=== PATIENT | female | born 1940 | race Caucasian/White ===

== ENCOUNTER → 2017-01-04 | Outpatient (CLI) | payer MEDICARE ==
--- NOTE | 2017-01-04 13:16 | MM ---
Reason for exam: additional evaluation requested from abnormal screening. Last mammogram was performed less than 1 month ago. History: Patient is postmenopausal. Family history of breast cancer in maternal aunt at age 82. Took hormonal contraceptives for 10 years beginning at age 27. Took estrogen for 26 years beginning at age 39. Physical Findings: Nurse did not find any significant physical abnormalities on exam. MG 3D Work Up W/Cad RT CC with magnification, LM with magnification, and LM view(s) were taken of the right breast. Prior study comparison: December 26, 2016, bilateral MG 3d screening mammo w/cad. June 04, 2015, bilateral MG 3d screening mammo w/cad. Finding: There is a 6 mm round mass in the lower quadrant of the right breast. No suspicious cluster calcifications. These results were verbally communicated with the patient and result sheet given to the patient on 01/04/17. ASSESSMENT: Incomplete: need additional imaging evaluation, BI-RAD 0 RECOMMENDATION: Ultrasound of the right breast.
--- NOTE | 2017-01-04 13:21 | USB ---
Reason for exam: additional evaluation requested from abnormal screening. History: Patient is postmenopausal. Family history of breast cancer in maternal aunt at age 82. Took hormonal contraceptives for 10 years beginning at age 27. Took estrogen for 26 years beginning at age 39. US Breast Workup Limited RT Right breast ultrasound demonstrates a duct seen at 5 o'clock, a 1.0 x 0.7 x 0.6cm oval lesion at 5 o'clock and a 0.5 x 0.3 x 0.7cm cystic cluster at 7 o'clock. These results were verbally communicated with the patient and result sheet given to the patient on 01/04/17. ASSESSMENT: Suspicious, BI-RAD 4 RECOMMENDATION: Ultrasound core biopsy of the right breast. Called Dr. Segura with mammographic findings and has scheduled an appointment for the patient for 01/12/17 at 9:[address] Blanc. PRELIMINARY REPORT CALLED AND FAXED TO DR. BLANC ON 01/04/17.
== END | disposition home or self-care (01) ==
LOC: RADMAMWWP 10:37
PROVIDERS: ATTEND Family Medicine
DX: R92.8 Other abnormal and inconclusive findings on diagnostic imaging of breast (principal)
CPT/HCPCS: 76642; G0206; G0279

== ENCOUNTER → 2017-04-10 | Outpatient (CLI) | payer MEDICARE ==
--- NOTE | 2017-04-10 11:05 | XR ---
EXAMINATION TYPE: XR chest 2V DATE OF EXAM: 04/10/2017 COMPARISON: Prior chest x-ray 02/21/2013 HISTORY: J 41.1 TECHNIQUE: Frontal and lateral views of the chest are obtained. FINDINGS: Scoliosis is again noted. Heart appears enlarged, size may be accentuated by technique, pa tient body habitus. There is old granulomatous disease, calcified granuloma, calcified right hilar no de as on prior. Pulmonary vascularity unchanged. No evident airspace disease, pneumothorax, or pleura l effusion. IMPRESSION: No acute cardiopulmonary process. Additional findings above.
== END | disposition home or self-care (01) ==
LOC: RADXRMAIN 08:52
PROVIDERS: ATTEND Physician Assistant
DX: J41.1 Mucopurulent chronic bronchitis (principal)
CPT/HCPCS: 71046

== ENCOUNTER → 2018-01-02 | Outpatient (CLI) | payer MEDICARE ==
--- NOTE | 2018-01-02 14:14 | MM ---
Reason for exam: additional evaluation requested from prior study. Last mammogram was performed 11 months ago. History: Patient is postmenopausal. Family history of breast cancer in maternal aunt at age 82. Benign US biopsy breast VAD RT of the right breast, January 29, 2017. Took hormonal contraceptives for 10 years beginning at age 27. Took estrogen for 26 years beginning at age 39. Physical Findings: Nurse did not find any significant physical abnormalities on exam. MG 3D Diag Mammo W/Cad NIA Bilateral CC and MLO view(s) were taken. Prior study comparison: January 29, 2017, right breast MG 3d diag mammo wo cad RT. January 04, 2017, right breast MG 3d work up w/cad RT. The breast tissue is heterogeneously dense. This may lower the sensitivity of mammography. Previous mammotome biopsy in the right breast. There is no discrete abnormality including area of concern. No significant new findings when compared with previous films. These results were verbally communicated with the patient and result sheet given to the patient on 01/02/18. ASSESSMENT: Incomplete: need additional imaging evaluation, BI-RAD 0 RECOMMENDATION: Ultrasound of the right breast.
--- NOTE | 2018-01-02 14:15 | USB ---
Reason for exam: additional evaluation requested from abnormal screening. History: Patient is postmenopausal. Family history of breast cancer in maternal aunt at age 82. Benign US biopsy breast VAD RT of the right breast, January 29, 2017. Took hormonal contraceptives for 10 years beginning at age 27. Took estrogen for 26 years beginning at age 39. US Breast RT Right complete breast ultrasound includes all four quadrants, the retroareolar region and axilla. Finding demonstrates a 0.2 x 0.2 x 0.3cm cystic lesion with clip at 7 o'clock. These results were verbally communicated with the patient and result sheet given to the patient on 01/02/18. ASSESSMENT: Benign, BI-RAD 2 RECOMMENDATION: Routine screening mammogram of both breasts in 1 year.
== END | disposition home or self-care (01) ==
LOC: RADMAMWWP 07:26
PROVIDERS: ATTEND Family Medicine
DX: R92.8 Other abnormal and inconclusive findings on diagnostic imaging of breast (principal)
CPT/HCPCS: 77066; 76641; G0279; 77062

== ENCOUNTER → 2019-02-20 | Outpatient (CLI) | payer MEDICARE ==
--- NOTE | 2019-02-21 14:36 | MM ---
Reason for exam: screening (asymptomatic). Last mammogram was performed 1 year and 2 months ago. History: Patient is postmenopausal. Family history of breast cancer in maternal aunt at age 82. Benign US biopsy breast VAD RT of the right breast, January 29, 2017. Took hormonal contraceptives for 10 years beginning at age 27. Took estrogen for 26 years beginning at age 39. Physical Findings: A clinical breast exam by your physician is recommended on an annual basis and results should be correlated with mammographic findings. MG 3D Screening Mammo W/Cad Bilateral CC and MLO view(s) were taken. Prior study comparison: January 02, 2018, bilateral MG 3d diag mammo w/cad NIA. January 29, 2017, right breast MG 3d diag mammo wo cad RT. There are scattered fibroglandular densities. There is no discrete abnormality. No significant changes when compared with prior studies. ASSESSMENT: Negative, BI-RAD 1 RECOMMENDATION: Routine screening mammogram of both breasts in 1 year.
== END | disposition home or self-care (01) ==
LOC: RADMAMWWP 11:35
PROVIDERS: ATTEND Family Medicine
DX: Z12.31 Encounter for screening mammogram for malignant neoplasm of breast (principal)
CPT/HCPCS: 77063; 77067

== ENCOUNTER 2020-12-09 09:08 | Day surgery (SDC) | payer MEDICARE ==
[2020-12-08 08:28] VITALS: BMI 34.4
[~2020-12-09 09:08] MED LIST: ALPRAZolam 0.25 MG TAB PO PRN; ALPRAZolam 0.5 MG TAB PO PRN; ASPIRIN 325 MG TAB PO STA; ATORVASTATIN 80 MG TAB PO STA; HEPARIN SODIUM,PORCINE 10,000 UNIT in SODIUM CHLORIDE 0.9% 1,000 ML IRRIGATION PRN; HEPARIN SODIUM,PORCINE 2,500 UNIT in SODIUM CHLORIDE 0.9% 250 ML IRRIGATION PRN; NITROGLYCERIN SL TABS 0.4 MG TAB SUBLINGUAL PRN
[2020-12-09] MEDS: SODIUM CHLORIDE 0.9% 1,000 ML in EMPTY BAG 1 BAG IV SCH ×2 (09:45→14:09)
[2020-12-09 09:47] LABS: Basophils % (A) 0 %; Eosinophils # (A) 0.2 k/uL (0-0.7); Eosinophils % (A) 2 %; HCT 43.3 % (34.0-46.0); HGB 13.7 gm/dL (11.4-16.0); Hypochromasia Slight; Lymphocytes % (A) 12 %; MCH 26.7 pg (25.0-35.0); MCHC 31.6 g/dL (31.0-37.0); MCV 84.2 fL (80.0-100.0); Monocytes # (A) 0.4 k/uL (0-1.0); Monocytes % (A) 4 %; Neutrophils # (A) 6.8 k/uL (1.3-7.7); Neutrophils % (A) 79 %; Platelet Count 282 k/uL (150-450); RBC 5.15 m/uL (3.80-5.40); RDW 15.6 % (11.5-15.5); WBC 8.6 k/uL (3.8-10.6)
[2020-12-09 10:12] LABS: African American GFR (CKD) >90 (>60 ml/min/1.73 sqM); Anion Gap 7 mmol/L; Blood Urea Nitrogen 19 mg/dL (7-17); Calcium 9.5 mg/dL (8.4-10.2); Carbon Dioxide 29 mmol/L (22-30); Chloride 104 mmol/L (98-107); Glucose 116 mg/dL (74-99); Non-African American GFR(CKD) 83 (>60 ml/min/1.73 sqM); Sodium 140 mmol/L (137-145)
[2020-12-09 10:13] LABS: Potassium 4.7 mmol/L (3.5-5.1)
[2020-12-09] MEDS ORDERED: fentaNYL (PF) 50 MCG/ML 2 ML AMP IV ONE (11:04)
[2020-12-09] MEDS ORDERED: LIDOCAINE 1% INJ 10MG/ML (20 ML MDV) SQ ONE (11:07)
[2020-12-09] MEDS ORDERED: IOPAMIDOL-370 125ML BTL INJ ONE (11:36)
[2020-12-09 11:38] LABS: O2 Sat Blood Gas 60.8 %
[2020-12-09 11:40] LABS: O2 Sat Blood Gas 84.2 %
[2020-12-09] MEDS ORDERED: RX INFO: IV CONTRAST WAS GIVEN 1 EACH MISC MISCELLANE PRN (11:41)
[2020-12-09 11:42] LABS: O2 Sat Blood Gas 60.5 %
[2020-12-09 11:44] LABS: O2 Sat Blood Gas 69.2 %
[2020-12-09] MEDS ORDERED: SODIUM CHLORIDE 0.9% 1,000 ML IV SCH (11:45)
--- NOTE | 2020-12-09 13:05 | CC ---
CARDIAC CATHETERIZATION REPORT DATE OF SERVICE: December 09, 2020. PERFORMING PHYSICIAN: David Singh MD. PROCEDURE PERFORMED: 1. Right heart catheterization. 2. Left heart catheterization. 3. Selective right and left coronary angiogram. 4. Right common femoral artery angiogram. INDICATION: Shortness of breath of unknown etiology in this 80-year-old female patient. APPROACH: Right common femoral vein and right common femoral artery. COMPLICATION: None. LEVEL OF SEDATION: Moderate with sedation of 31 minutes. PROCEDURE DESCRIPTION: After obtaining an informed consent, the patient was brought to the cardiac chemistry lab instructor. The right common femoral vein and right common femoral artery were cannulated using micropuncture technique under ultrasound guidance, the micropuncture wire passed easily, then I placed an 8-Bhutanese sheath in the vein and 6-Bhutanese sheath in the artery. Right heart catheterization was performed using 6-Bhutanese Calhoun catheter. Left heart catheterization was performed using JR4 catheter which crossed the aortic valve then pullback across the valve. Selective right and left coronary angiogram performed using JR4 and JL4 catheters. By the end, I did selective right common femoral artery angiogram. HEMODYNAMICS: 1. The pulmonary capillary wedge pressure was 21 mmHg. 2. PA pressures were as follows: systolic 64 and diastolic of 31 and mean of 46 mmHg. 3. RV pressures were as follows: Systolic 67 and end-diastolic of 9 mmHg. 4. RA pressure was 14 mm Hg as a mean. 5. The cardiac output using thermodilution was 6.56 L/minute. 6. Transpulmonary gradient was 25 mmHg. 7. Pulmonary vascular resistance was 3.81 wood unit. 8. The mean gradient across the aortic valve was 20 mmHg. SELECTIVE CORONARY ANGIOGRAM: 1. RIGHT CORONARY ARTERY is a large caliber vessel and it is a dominant vessel. The RCA is a large caliber vessel. It is a dominant vessel. The RCA is angiographically normal. It distally bifurcates into PDA and PLV branches both appeared to be angiographically normal. 2. The left main is angiographically normal. It bifurcates into LCX and LAD. 3. The LCX is a large caliber vessel. It is a nondominant vessel. The LCX has mild disease only. 4. The LAD is a large caliber vessel. The LAD has mild diffuse disease only. The LAD gives rise into a diagonal branch which seems to be angiographically normal. CONCLUSION: 1. Mild nonobstructive coronary artery disease involving the right and left coronary systems. 2. Elevated left and right-sided filling pressures. 3. Pulmonary hypertension. The mean PA pressure was 46 mmHg. Differential diagnosis will be group 2 versus group 3 versus a combination of group 2 and group 3. 4. Normal cardiac output. 5. Normal pulmonary vascular resistance. The pulmonary vascular resistance was 3.81 wood unit. 6. Moderate aortic stenosis. The mean gradient across aortic valve by catheter was 20 mmHg. MMODL / IJN: [id number] /
[2020-12-09 14:17] VITALS: TEMP 97.5
[2020-12-09 15:07] VITALS: RESP 18
[2020-12-09 16:55] VITALS: BP 135/77; PULSE 69
== END 2020-12-09 18:55 | disposition home or self-care (01) ==
LOC: CATHCVL 09:08 → 6NMEDSUR 11:36 → CATHCVL 18:55
PROVIDERS: ATTEND Internal Medicine Interventional Cardiology
DX: I25.10 Atherosclerotic heart disease of native coronary artery without angina pectoris (principal); I27.20 Pulmonary hypertension, unspecified; Z20.822 Contact with and (suspected) exposure to COVID-19
CPT/HCPCS: 93460; 80048; 85018; 82810; 85025; 87635; C1769 ×3; C1751; C1894 ×2; J2001; J3010; Q9967

== ENCOUNTER 2021-01-21 07:07 | Inpatient (IN) | payer MEDICARE ==
--- NOTE | 2021-01-21 07:57 | ED ---
General Adult HPI - General Chief complaint: Weakness Stated complaint: Failure to Thrive Time Seen by Provider: 01/21/21 07:20 Source: patient, family, EMS, RN notes reviewed, old records reviewed Mode of arrival: EMS Limitations: no limitations - History of Present Illness Initial comments: Patient is an 80-year-old female with history of COPD, normally on 2 L, hypertension, presenting to the emergency department via EMS for shortness of breath. Upon arrival, EMS states that her oxygen was in the upper 70s, they found many kinks in her O2 tubing, they put her on 3 L and her O2 quickly came up to the 90s. Patient has been complaining of increased weakness over the past couple days, her appetite has been low for over a month now according to her daughter. She is prescribed Lasix however stopped taking about a month ago secondary to not wanting to get to the restroom often. Currently she denies any chest pain, she states her breathing has improved. She denies any pain anywhere. She states she has noticed increased swelling in her right lower leg that is not painful. She has been weaker over the last couple days, had a fall about 3-4 days ago, she denies any pain from the fall, she denies hitting her head. She denies dizziness or lightheadedness, no abdominal pain, nausea or vomiting. Denies any recent fevers or chills. She has no further complaints at this time. Upon arrival to the ER, her pulse is 108, 91% on 3 L, rest of vitals normal. - Related Data Home Medications Medication Instructions Recorded Confirmed ALPRAZolam [Xanax] 0.25 mg PO DAILY PRN 01/19/17 01/21/21 Aspirin EC [Ecotrin Low Dose] 81 mg PO DAILY 01/19/17 01/21/21 Budesonide/Formoterol Fumarate 2 puff INHALATION RT-BID 01/19/17 01/21/21 [Symbicort 160-4.5 Mcg Inhaler] Multivitamins, Thera [Multivitamin 1 tab PO DAILY 01/19/17 01/21/21 (formulary)] PARoxetine HCL 30 mg PO DAILY 01/19/17 01/21/21 Simvastatin [Zocor] 20 mg PO DAILY 01/19/17 01/21/21 amLODIPine [Norvasc] 5 mg PO DAILY 01/19/17 01/21/21 lisinopriL 30 mg PO DAILY 01/19/17 01/21/21 Albuterol Sulfate [Ventolin HFA] 2 puff INHALATION RT-QID PRN 01/21/21 01/21/21 Tolterodine Tartrate [Detrol LA] 4 mg PO DAILY 01/21/21 01/21/21 Allergies Allergy/AdvReac Type Severity Reaction Status Date / Time aspirin AdvReac Nausea Verified 01/21/21 08:40 Review of Systems ROS Statement: Those systems with pertinent positive or pertinent negative responses have been documented in the HPI. ROS Other: All systems not noted in ROS Statement are negative. Past Medical History Past Medical History: COPD, Hypertension History of Any Multi-Drug Resistant Organisms: None Reported Past Surgical History: Adenoidectomy, Appendectomy, Section, Hysterectomy, Tonsillectomy Past Anesthesia/Blood Transfusion Reactions: No Reported Reaction Past Psychological History: Anxiety, Depression Smoking Status: Former smoker Past Alcohol Use History: None Reported Past Drug Use History: None Reported - Past Family History Mother Family Medical History: Cancer General Exam - General Exam Comments Initial Comments: GENERAL: Patient is well-developed and well-nourished. Patient is nontoxic and in no acute distress. HEAD: Atraumatic, normocephalic. EYES: Pupils equal round and reactive to light, extraocular movements intact, sclera anicteric, conjunctiva are normal. Eyelids were unremarkable. ENT: TMs normal, nares patent, oropharynx clear without exudates. Moist mucous membranes. NECK: Normal range of motion, supple without lymphadenopathy or JVD. LUNGS: Unlabored respirations. Breath sounds clear to auscultation bilaterally and equal. No wheezes rales or rhonchi. HEART: Regular rate and rhythm without murmurs, rubs or gallops. ABDOMEN: Soft, nontender, normoactive bowel sounds. No guarding, no rebound. No masses appreciated. : Deferred MUSCULOSKELETAL: Normal extremities with adequate strength and normal range of motion. She has bilateral lower leg edema, worse on the right side, she is neurovascular intact bilateral lower extremities. No clubbing or cyanosis. NEUROLOGICAL: Patient is alert and oriented x 3. Motor and sensory are also intact. Cranial nerves II through XII grossly intact. Symmetrical smile. Normal speech, normal gait. PSYCH: Normal mood, normal affect. SKIN: Warm, Dry, normal turgor, no rashes or lesions noted. Limitations: no limitations Course Vital Signs 01/21/21 07:08 Pulse Rate 108 H Respiratory 22 Rate Blood Pressure 143/75 O2 Sat by Pulse 91 L Oximetry EKG Findings - EKG Comments: EKG Findings:: A. fib with RVR, left axis deviation, no signs of acute ST seg ment elevation. This is a change, no history of A. fib. Ventricular rate 104, QRS duration 84, QTC 292. Medical Decision Making - Medical Decision Making Patient is an 80-year-old female with history of COPD, normal and 2 L at home, presenting via EMS with increased shortness of breath over the past couple days. She is also complaining of generalized weakness, no appetite. She is supposed be taking Lasix however she stopped taking about a month ago secondary to frequent urination. She did have some pitting edema on the right lower leg, ultrasound revealed no evidence for DVT. Labs are relatively stable with a negative troponin, BNP is 2400, rapid Covid is negative. Chest x-ray shows COPD, moderate right pleural effusion, this could be pulmonary vascular congestion or atypical pneumonia. Patient has had no fevers, leaning toward CHF. She'll be given a dose of IV Lasix and will be admitted. Patient's EKG is also showing new onset A. fib, she has no history of this in the past. She had recent heart cath in November of this year, only showed mild coronary artery disease. Patient was accepted by Dr. cifuentes with cardiac consult. Case discussed with Dr. Paul. - Lab Data Result diagrams: 01/21/21 08:15 01/21/21 08:15 Lab Results 01/21/21 01/21/21 01/21/21 Range/Units 08:15 08:15 08:15 WBC 8.8 (3.8-10.6) k/uL RBC 4.79 (3.80-5.40) m/uL Hgb 12.8 (11.4-16.0) gm/dL Hct 42.0 (34.0-46.0) % MCV 87.8 (80.0-100.0) fL MCH 26.7 (25.0-35.0) pg MCHC 30.5 L (31.0-37.0) g/dL RDW 16.1 H (11.5-15.5) % Plt Count 224 (150-450) k/uL MPV 7.3 Neutrophils % 85 % Lymphocytes % 7 % Monocytes % 6 % Eosinophils % 1 % Basophils % 0 % Neutrophils # 7.5 (1.3-7.7) k/uL Lymphocytes # 0.7 L (1.0-4.8) k/uL Monocytes # 0.5 (0-1.0) k/uL Eosinophils # 0.1 (0-0.7) k/uL Basophils # 0.0 (0-0.2) k/uL Hypochromasia Moderate Anisocytosis Slight PT 11.2 (9.0-12.0) sec INR 1.1 (<1.2) APTT 23.7 (22.0-30.0) sec Sodium 139 (137-145) mmol/L Potassium 4.5 (3.5-5.1) mmol/L Chloride 95 L (98-107) mmol/L Carbon Dioxide 38 H (22-30) mmol/L Anion Gap 6 mmol/L BUN 21 H (7-17) mg/dL Creatinine 0.63 (0.52-1.04) mg/dL Est GFR (CKD-EPI)AfAm >90 (>60 ml/min/1.73 sqM) Est GFR (CKD-EPI)NonAf 84 (>60 ml/min/1.73 sqM) Glucose 115 H (74-99) mg/dL Plasma Lactic Acid Tariq (0.7-2.0) mmol/L Calcium 9.5 (8.4-10.2) mg/dL Magnesium 1.7 (1.6-2.3) mg/dL Total Bilirubin 0.6 (0.2-1.3) mg/dL AST 26 (14-36) U/L ALT 9 (4-34) U/L Alkaline Phosphatase 63 (38-126) U/L Troponin I (0.000-0.034) ng/mL NT-Pro-B Natriuret Pep pg/mL Total Protein 6.8 (6.3-8.2) g/dL Albumin 3.3 L (3.5-5.0) g/dL Coronavirus (PCR) (Not Detectd) 01/21/21 01/21/21 01/21/21 Range/Units 08:15 08:15 08:15 WBC (3.8-10.6) k/uL RBC (3.80-5.40) m/uL Hgb (11.4-16.0) gm/dL Hct (34.0-46.0) % MCV (80.0-100.0) fL MCH (25.0-35.0) pg MCHC (31.0-37.0) g/dL RDW (11.5-15.5) % Plt Count (150-450) k/uL MPV Neutrophils % % Lymphocytes % % Monocytes % % Eosinophils % % Basophils % % Neutrophils # (1.3-7.7) k/uL Lymphocytes # (1.0-4.8) k/uL Monocytes # (0-1.0) k/uL Eosinophils # (0-0.7) k/uL Basophils # (0-0.2) k/uL Hypochromasia Anisocytosis PT (9.0-12.0) sec INR (<1.2) APTT (22.0-30.0) sec Sodium (137-145) mmol/L Potassium (3.5-5.1) mmol/L Chloride (98-107) mmol/L Carbon Dioxide (22-30) mmol/L Anion Gap mmol/L BUN (7-17) mg/dL Creatinine (0.52-1.04) mg/dL Est GFR (CKD-EPI)AfAm (>60 ml/min/1.73 sqM) Est GFR (CKD-EPI)NonAf (>60 ml/min/1.73 sqM) Glucose (74-99) mg/dL Plasma Lactic Acid Tariq 0.9 (0.7-2.0) mmol/L Calcium (8.4-10.2) mg/dL Magnesium (1.6-2.3) mg/dL Total Bilirubin (0.2-1.3) mg/dL AST (14-36) U/L ALT (4-34) U/L Alkaline Phosphatase (38-126) U/L Troponin I <0.012 (0.000-0.034) ng/mL NT-Pro-B Natriuret Pep 2420 pg/mL Total Protein (6.3-8.2) g/dL Albumin (3.5-5.0) g/dL Coronavirus (PCR) (Not Detectd) 01/21/21 Range/Units 08:37 WBC (3.8-10.6) k/uL RBC (3.80-5.40) m/uL Hgb (11.4-16.0) gm/dL Hct (34.0-46.0) % MCV (80.0-100.0) fL MCH (25.0-35.0) pg MCHC (31.0-37.0) g/dL RDW (11.5-15.5) % Plt Count (150-450) k/uL MPV Neutrophils % % Lymphocytes % % Monocytes % % Eosinophils % % Basophils % % Neutrophils # (1.3-7.7) k/uL Lymphocytes # (1.0-4.8) k/uL Monocytes # (0-1.0) k/uL Eosinophils # (0-0.7) k/uL Basophils # (0-0.2) k/uL Hypochromasia Anisocytosis PT (9.0-12.0) sec INR (<1.2) APTT (22.0-30.0) sec Sodium (137-145) mmol/L Potassium (3.5-5.1) mmol/L Chloride (98-107) mmol/L Carbon Dioxide (22-30) mmol/L Anion Gap mmol/L BUN (7-17) mg/dL Creatinine (0.52-1.04) mg/dL Est GFR (CKD-EPI)AfAm (>60 ml/min/1.73 sqM) Est GFR (CKD-EPI)NonAf (>60 ml/min/1.73 sqM) Glucose (74-99) mg/dL Plasma Lactic Acid Tariq (0.7-2.0) mmol/L Calcium (8.4-10.2) mg/dL Magnesium (1.6-2.3) mg/dL Total Bilirubin (0.2-1.3) mg/dL AST (14-36) U/L ALT (4-34) U/L Alkaline Phosphatase (38-126) U/L Troponin I (0.000-0.034) ng/mL NT-Pro-B Natriuret Pep pg/mL Total Protein (6.3-8.2) g/dL Albumin (3.5-5.0) g/dL Coronavirus (PCR) Not Detected (Not Detectd) Disposition Clinical Impression: CHF (congestive heart failure), New onset a-fib, Hypoxia Disposition: ADMITTED IP TO THIS HOSP Condition: Stable Referrals: Ehsan Segura MD [Primary Care Provider] - 1-2 days Decision Date: 01/21/21 Decision Time: 09:27
[2021-01-21 08:35] LABS: Anisocytosis Slight; Basophils % (A) 0 %; Eosinophils # (A) 0.1 k/uL (0-0.7); Eosinophils % (A) 1 %; HGB 12.8 gm/dL (11.4-16.0); Hypochromasia Moderate; Lymphocytes # (A) 0.7 k/uL (1.0-4.8); Lymphocytes % (A) 7 %; MCH 26.7 pg (25.0-35.0); MCHC 30.5 g/dL (31.0-37.0); MCV 87.8 fL (80.0-100.0); Mean Platelet Volume 7.3; Monocytes # (A) 0.5 k/uL (0-1.0); Monocytes % (A) 6 %; Neutrophils # (A) 7.5 k/uL (1.3-7.7); Neutrophils % (A) 85 %; Platelet Count 224 k/uL (150-450); RBC 4.79 m/uL (3.80-5.40); RDW 16.1 % (11.5-15.5); WBC 8.8 k/uL (3.8-10.6)
--- NOTE | 2021-01-21 08:53 | XR ---
EXAMINATION TYPE: XR chest 2V DATE OF EXAM: 01/21/2021 COMPARISON: 04/10/2017, 07/04/2018 HISTORY: 80-year-old female with weakness TECHNIQUE: AP and lateral views FINDINGS: Extensive opacity at the right base is new compared to prior exams. This obscures the right heart mar gin. Relative upper lung lucencies. Interstitial prominence. IMPRESSION: COPD. Suspected moderate right pleural effusion with underlying atelectasis and/or consolidation. Edmar kground interstitial changes could reflect pulmonary vascular congestion or atypical pneumonia.
[2021-01-21 08:54] LABS: ALT 9 U/L (4-34); AST 26 U/L (14-36); African American GFR (CKD) >90 (>60 ml/min/1.73 sqM); Albumin 3.3 g/dL (3.5-5.0); Alkaline Phosphatase 63 U/L (38-126); Anion Gap 6 mmol/L; Blood Urea Nitrogen 21 mg/dL (7-17); Calcium 9.5 mg/dL (8.4-10.2); Carbon Dioxide 38 mmol/L (22-30); Chloride 95 mmol/L (98-107); Glucose 115 mg/dL (74-99); Magnesium 1.7 mg/dL (1.6-2.3); Non-African American GFR(CKD) 84 (>60 ml/min/1.73 sqM); Potassium 4.5 mmol/L (3.5-5.1); Sodium 139 mmol/L (137-145); Total Bilirubin 0.6 mg/dL (0.2-1.3); Total Protein 6.8 g/dL (6.3-8.2)
[2021-01-21 08:56] LABS: INR 1.1 (<1.2); Partial Thromboplastin Time 23.7 sec (22.0-30.0); Prothrombin Time 11.2 sec (9.0-12.0)
--- NOTE | 2021-01-21 09:20 | US ---
EXAMINATION TYPE: US venous doppler duplex LE RT DATE OF EXAM: 01/21/2021 9:05 AM COMPARISON: NONE CLINICAL HISTORY: swelling. Lasik surgery. Swelling. Not on blood thinners. SIDE PERFORMED: Right TECHNIQUE: The lower extremity deep venous system is examined utilizing real time linear array sonog brent with graded compression, doppler sonography and color-flow sonography. VESSELS IMAGED: Common Femoral Vein Deep Femoral Vein Greater Saphenous Vein * Femoral Vein Popliteal Vein Small Saphenous Vein * Proximal Calf Veins (* superficial vessels) Right Leg: Negative for DVT Grayscale, color doppler, spectral doppler imaging performed of the deep veins of the right lower ext remity. There is normal flow, compressibility, vascular waveforms. IMPRESSION: No ultrasound evidence for acute DVT in the right lower extremity.
[2021-01-21] MEDS ORDERED: FUROSEMIDE 10 MG/ML 4 ML VIAL IV STA (09:26)
[2021-01-21 10:16] LABS: Amorphous Sediment,Urine Few /hpf; Appearance,Urine Cloudy (Clear); Bacteria,Urine Rare /hpf; Bilirubin,Urine Negative (Negative); Blood,Urine Negative (Negative); Color,Urine Yellow; Glucose,Urine (UA) Negative (Negative); Ketones,Urine 2+ (Negative); Leukocyte Esterase,Urine Negative (Negative); Mucus,Urine Occasional /hpf; Nitrite,Urine Negative (Negative); Protein,Urine 1+ (Negative); RBC,Urine 2 /hpf (0-5); Specific Gravity,Urine 1.023 (1.001-1.035); Squamous Epithelial Cell,Urine 5 /hpf (0-4); WBC,Urine 3 /hpf (0-5)
[2021-01-21] MEDS ORDERED: ALBUTEROL NEBULIZED 2.5 MG/3 ML INHALATION PRN (16:05)
[2021-01-21 20:25] LABS: Glucose,Whole Blood 105 mg/dL (75-99)
[2021-01-21] MEDS: SYMBICORT 160-4.5 MCG INHALER INHALATION SCH (20:25)
[2021-01-21 20:32] LABS: ABG Base Excess 18.6 mmol/L; ABG Oxygen Saturation 95.6 % (94-97); ABG PO2 85 mmHg (83-108); ABG TCO2 48 mmol/L (19-24); Allen Test Performed? Yes
[2021-01-21 20:50] LABS: ABG PCO2 91 mmHg (35-45)
[2021-01-21 20:51] LABS: ABG HCO3 45 mmol/L (21-25)
[2021-01-22] MEDS: SYMBICORT 160-4.5 MCG INHALER INHALATION SCH ×2 (08:11→19:08)
[2021-01-22 08:55] LABS: Anisocytosis Slight; Basophils % (A) 0 %; Eosinophils # (A) 0.2 k/uL (0-0.7); Eosinophils % (A) 2 %; HCT 39.2 % (34.0-46.0); HGB 11.8 gm/dL (11.4-16.0); Hypochromasia Moderate; Lymphocytes # (A) 0.7 k/uL (1.0-4.8); Lymphocytes % (A) 9 %; MCH 26.1 pg (25.0-35.0); MCHC 30.2 g/dL (31.0-37.0); MCV 86.5 fL (80.0-100.0); Mean Platelet Volume 7.2; Monocytes # (A) 0.5 k/uL (0-1.0); Monocytes % (A) 6 %; Neutrophils # (A) 6.4 k/uL (1.3-7.7); Neutrophils % (A) 80 %; Platelet Count 200 k/uL (150-450); RBC 4.53 m/uL (3.80-5.40); RDW 16.1 % (11.5-15.5)
[2021-01-22] MEDS ORDERED: lisinopriL 10 MG TAB PO SCH (09:00)
[2021-01-22] MEDS ORDERED: ASPIRIN 81 MG PO SCH (09:00)
[2021-01-22 09:20] LABS: African American GFR (CKD) >90 (>60 ml/min/1.73 sqM); Anion Gap 5 mmol/L; Blood Urea Nitrogen 21 mg/dL (7-17); Calcium 8.9 mg/dL (8.4-10.2); Carbon Dioxide 40 mmol/L (22-30); Chloride 93 mmol/L (98-107); Glucose 86 mg/dL (74-99); Non-African American GFR(CKD) 83 (>60 ml/min/1.73 sqM); Potassium 3.9 mmol/L (3.5-5.1); Sodium 138 mmol/L (137-145)
[2021-01-22] MEDS: MULTIVITAMINS, THERA 1 EACH TAB PO SCH (09:53)
[2021-01-22] MEDS: OXYBUTYNIN 10 MG TAB.ER.24 PO SCH (09:53)
[2021-01-22] MEDS: APIXABAN 5 MG TAB PO SCH ×2 (09:53→21:35)
[2021-01-22] MEDS: lisinopriL 20 MG TAB PO SCH ×2 (09:54→21:35)
[2021-01-22] MEDS: PARoxetine 10 MG TAB PO SCH (09:54)
[2021-01-22] MEDS: ATORVASTATIN 10 MG TAB PO SCH (09:54)
[2021-01-22] MEDS: amLODIPine 5 MG TAB PO SCH (09:54)
[2021-01-22 10:14] VITALS: BMI 33.7
--- NOTE | 2021-01-22 10:32 | P.CRDCN ---
History of Present Illness Consult date: 01/22/21 Consult reason: atrial fibrillation, congestive heart failure Chief complaint: CHF, new onset A. fib, hypoxia History of present illness: This is Marek Samuel NP dictating a consult on this patient on behalf of Dr. Braden. The patient was interviewed and examined. HPI: [Patient is a pleasant 80-year-old female who initially presented to the hospital with congestive heart failure, new onset A. fib, and hypoxia. Per emergency department notes, the patient's oxygen was initially found to be in the upper 70s, along with kinks in her oxygen tubing. She is placed on 3 L of oxygen her O2 sat came up quickly to the 90s. Patient was also complaining of weakness over the past couple days and a poor appetite for the last month. Patient reports today that her symptoms started approximately a week ago, with shortness of breath. It is reported the patient stopped taking her Lasix because she didn't want to go to the bathroom so much. Patient has a past medical history that includes COPD, and hypertension. Patient was found to be A. fib with RVR on EKG. BNP was elevated at 2400. Patient was given a dose of Lasix in the emergency department, and subsequently admitted for continued workup and treatment.] ROS: [No fever, chills, or rigors] [no cough, phlegm, or expectoration] [no nausea, vomiting, or diarrhea] [no hematuria, dysuria] [no musculoskelatal complaints] [no strokes or seizures] [no skin lesions] EXAMINATION: GENERAL: Well-appearing, well-nourished and in no acute distress. NECK: Supple without JVD or thyromegaly. LUNGS: Breath sounds clear to auscultation bilaterally. Respiration equal and unlabored. No wheezes, rales or rhonchi. HEART: Regular rate and rhythm, systolic murmur noted, no rubs or gallops. S1 and S2 heard. EXTREMITIES: Normal range of motion, mild edema bilateral lower legs. No clubbing or cyanosis. Peripheral pulses intact and strong. REVIEW OF LABS, ECG & MEDICAL DATA: LABS: White count 8.0, hemoglobin 11.8, platelets 200, PT 11.2, INR 1.1, sodium 138, potassium 3.9, B1 21, creatinine 0.64, calcium 8.9, magnesium 1.7, initial troponin less than 0.012, BNP 2420, ABG-pH 7.30, pCO2 91, pO2 85, HC03 45. EKG: EKG dated 01/21/2021 shows atrial fibrillation with rapid ventricular response IMAGING: Chest x-ray dated 01/21/2021-COPD. Suspected moderate right pleural effusion with underlying atelectasis and/or consolidation. Background interstitial changes could reflect pulmonary vascular congestion or atypical pneumonia. Venous Doppler study dated 01/21/2021-no ultrasound evidence for acute DVT in the right lower extremity. VITALS: Temp 97.8, pulse 77, respirations 25, blood pressure 140/63, O2 saturation 99% on BiPAP with a 35% FiO2 IMPRESSION/PLAN: 1. Atrial fibrillation with rapid ventricular response-patient's rates currently controlled. Will start Eliquis 5 mg twice a day. It's felt that in the situation of hypoxia, and hypercarbia that the patient went into A. fib. We will get an echocardiogram, and check the patient's TSH. 2. Hypertension-change lisinopril to 20 mg twice a day. Thank you for the consult and allowing us to participate in the care of this patient. Past Medical History Past Medical History: COPD, Hypertension History of Any Multi-Drug Resistant Organisms: None Reported Past Surgical History: Adenoidectomy, Appendectomy, Section, Hysterectomy, Tonsillectomy Past Anesthesia/Blood Transfusion Reactions: No Reported Reaction Past Psychological History: Anxiety, Depression Smoking Status: Former smoker Past Alcohol Use History: None Reported Past Drug Use History: None Reported - Past Family History Mother Family Medical History: Cancer Medications and Allergies Home Medications Medication Instructions Recorded Confirmed Type ALPRAZolam [Xanax] 0.25 mg PO DAILY PRN 01/19/17 01/21/21 History Aspirin EC [Ecotrin Low Dose] 81 mg PO DAILY 01/19/17 01/21/21 History Budesonide/Formoterol Fumarate 2 puff INHALATION RT-BID 01/19/17 01/21/21 History [Symbicort 160-4.5 Mcg Inhaler] Multivitamins, Thera [Multivitamin 1 tab PO DAILY 01/19/17 01/21/21 History (formulary)] PARoxetine HCL 30 mg PO DAILY 01/19/17 01/21/21 History Simvastatin [Zocor] 20 mg PO DAILY 01/19/17 01/21/21 History amLODIPine [Norvasc] 5 mg PO DAILY 01/19/17 01/21/21 History lisinopriL 30 mg PO DAILY 01/19/17 01/21/21 History Albuterol Sulfate [Ventolin HFA] 2 puff INHALATION RT-QID PRN 01/21/21 01/21/21 History Tolterodine Tartrate [Detrol LA] 4 mg PO DAILY 01/21/21 01/21/21 History Allergies Allergy/AdvReac Type Severity Reaction Status Date / Time aspirin AdvReac Nausea Verified 01/21/21 08:40 Physical Exam Vitals: Vital Signs Temp Pulse Pulse Resp BP BP Pulse Ox 01/22/21 08:00 97.8 F 77 25 H 140/63 99 01/22/21 04:00 97.8 F 70 19 128/61 01/22/21 02:00 82 23 01/22/21 00:00 97.8 F 82 23 134/77 95 01/21/21 21:00 95 22 01/21/21 20:26 95 01/21/21 20:00 97.9 F 95 22 128/93 95 01/21/21 17:12 112 H 22 01/21/21 16:56 97.9 F 112 H 22 137/74 96 01/21/21 16:45 97.9 F 112 H 22 137/74 96 01/21/21 16:02 98 18 148/88 96 01/21/21 11:06 100 18 137/83 93 L Intake and Output 01/21/21 01/22/21 01/22/21 22:59 06:59 14:59 Intake Total 318 Output Total 0 900 Balance 318 -900 Intake: Oral 318 Output: Urine 0 900 Straight 450 Other: Voiding Method Bedpan Bedpan Bedpan Incontinent Incontinent Incontinent # Voids 0 Weight 99 kg 100.5 kg Results 01/22/21 07:47 01/22/21 07:47 CBC 01/22/21 Range/Units 07:47 WBC 8.0 (3.8-10.6) k/uL RBC 4.53 (3.80-5.40) m/uL Hgb 11.8 (11.4-16.0) gm/dL Hct 39.2 (34.0-46.0) % Plt Count 200 (150-450) k/uL Comprehensive Metabolic Panel 01/22/21 Range/Units 07:47 Sodium 138 (137-145) mmol/L Potassium 3.9 (3.5-5.1) mmol/L Chloride 93 L (98-107) mmol/L Carbon Dioxide 40 H (22-30) mmol/L BUN 21 H (7-17) mg/dL Creatinine 0.64 (0.52-1.04) mg/dL Glucose 86 (74-99) mg/dL Calcium 8.9 (8.4-10.2) mg/dL Current Medications Generic Name Dose Route Start Last Admin Trade Name Freq PRN Reason Stop Dose Admin Albuterol Sulfate 2.5 mg 01/21/21 16:05 Albuterol Nebulized 2.5 Mg/3 Ml INHALATION RT-QID PRN Shortness Of Breath Alprazolam 0.25 mg 01/21/21 16:05 Alprazolam 0.25 Mg Tab PO DAILY PRN Anxiety Amlodipine Besylate 5 mg 01/22/21 09:00 01/22/21 09:54 Amlodipine 5 Mg Tab PO 5 mg DAILY LUCIA Administration Apixaban 5 mg 01/22/21 09:00 01/22/21 09:53 Apixaban 5 Mg Tab PO 5 mg BID LUCIA Administration Protocol Atorvastatin Calcium 10 mg 01/22/21 09:00 01/22/21 09:54 Atorvastatin 10 Mg Tab PO 10 mg DAILY LUCIA Administration Budesonide/Formoterol Fumarate 2 puff 01/21/21 20:00 01/22/21 08:11 Symbicort 160-4.5 Mcg Inhaler INHALATION 2 puff RT-BID LUCIA Administration Lisinopril 20 mg 01/22/21 09:00 01/22/21 09:54 Lisinopril 20 Mg Tab PO 20 mg BID LUCIA Administration Multivitamins 1 each 01/22/21 09:00 01/22/21 09:53 Multivitamins, Thera 1 Each Tab PO 1 each DAILY LUCIA Administration Oxybutynin Chloride 10 mg 01/22/21 09:00 01/22/21 09:53 Oxybutynin 10 Mg Tab.Er.24 PO 10 mg DAILY LUCIA Administration Paroxetine HCl 30 mg 01/22/21 09:00 01/22/21 09:54 Paroxetine 10 Mg Tab PO 30 mg DAILY LUCIA Administration Intake and Output 01/21/21 01/22/21 01/22/21 22:59 06:59 14:59 Intake Total 318 Output Total 0 900 Balance 318 -900 Intake: Oral 318 Output: Urine 0 900 Straight 450 Other: Voiding Method Bedpan Bedpan Bedpan Incontinent Incontinent Incontinent # Voids 0 Weight 99 kg 100.5 kg 01/22/21 07:47 01/22/21 07:47
--- NOTE | 2021-01-22 10:33 | P.HPIM ---
History of Present Illness H&P Date: 01/21/21 Chief Complaint: Weakness/failure to thrive 80-year-old female with history of COPD, normally on 2 L, hypertension, presenting to the emergency department via EMS for shortness of breath. Upon arrival, EMS states that her oxygen was in the upper 70s, they found many kinks in her O2 tubing, they put her on 3 L and her O2 quickly came up to the 90s. Patient has been complaining of increased weakness over the past couple days, her appetite has been low for over a month now according to her daughter. She is prescribed Lasix however stopped taking about a month ago secondary to not wanting to get to the restroom often. Currently she denies any chest pain, she states her breathing has improved. She denies any pain anywhere. She states she has noticed increased swelling in her right lower leg that is not painful. She has been weaker over the last couple days, had a fall about 3-4 days ago, she denies any pain from the fall, she denies hitting her head. She denies dizziness or lightheadedness, no abdominal pain, nausea or vomiting. Denies any recent fevers or chills. She has no further complaints at this time. Upon arrival to the ER, her pulse is 108, 91% on 3 L, rest of vitals normal. EKG Findings:: A. fib with RVR, left axis deviation, no signs of acute ST segment elevation. This is a change, no history of A. fib. Ventricular rate 104, QRS duration 84, QTC 292. Review shows to PVC 0.8, hemoglobin 12.8 and platelet count of 224, sodium 139, potassium 4.5, BUN/creatinine of 21/0.60 and blood glucose of 1:15 Review of Systems REVIEW OF SYSTEMS: CONSTITUTIONAL: No fever, no malaise, no fatigue. HEENT: No recent visual problems or hearing problems. Denied any sore throat. CARDIOVASCULAR: No chest pain, orthopnea, PND, no palpitations, no syncope. PULMONARY: No shortness of breath, no cough, no hemoptysis. GASTROINTESTINAL: No diarrhea, no nausea, no vomiting, no abdominal pain. NEUROLOGICAL: No headaches, no weakness, no numbness. HEMATOLOGICAL: Denies any bleeding or petechiae. GENITOURINARY: Denies any burning micturition, frequency, or urgency. MUSCULOSKELETAL/RHEUMATOLOGICAL: Denies any joint pain, swelling, or any muscle pain. ENDOCRINE: Denies any polyuria or polydipsia. The rest of the 14-point review of systems is negative. Past Medical History Past Medical History: COPD, Hypertension History of Any Multi-Drug Resistant Organisms: None Reported Past Surgical History: Adenoidectomy, Appendectomy, Section, Hysterectomy, Tonsillectomy Past Anesthesia/Blood Transfusion Reactions: No Reported Reaction Past Psychological History: Anxiety, Depression Smoking Status: Former smoker Past Alcohol Use History: None Reported Past Drug Use History: None Reported - Past Family History Mother Family Medical History: Cancer Medications and Allergies Home Medications Medication Instructions Recorded Confirmed Type ALPRAZolam [Xanax] 0.25 mg PO DAILY PRN 01/19/17 01/21/21 History Aspirin EC [Ecotrin Low Dose] 81 mg PO DAILY 01/19/17 01/21/21 History Budesonide/Formoterol Fumarate 2 puff INHALATION RT-BID 01/19/17 01/21/21 History [Symbicort 160-4.5 Mcg Inhaler] Multivitamins, Thera [Multivitamin 1 tab PO DAILY 01/19/17 01/21/21 History (formulary)] PARoxetine HCL 30 mg PO DAILY 01/19/17 01/21/21 History Simvastatin [Zocor] 20 mg PO DAILY 01/19/17 01/21/21 History amLODIPine [Norvasc] 5 mg PO DAILY 01/19/17 01/21/21 History lisinopriL 30 mg PO DAILY 01/19/17 01/21/21 History Albuterol Sulfate [Ventolin HFA] 2 puff INHALATION RT-QID PRN 01/21/21 01/21/21 History Tolterodine Tartrate [Detrol LA] 4 mg PO DAILY 01/21/21 01/21/21 History Allergies Allergy/AdvReac Type Severity Reaction Status Date / Time aspirin AdvReac Nausea Verified 01/21/21 08:40 Physical Exam Vitals: Vital Signs Pulse Resp BP Pulse Ox 01/21/21 07:08 108 H 22 143/75 91 L Intake and Output 01/20/21 01/21/21 01/21/21 22:59 06:59 14:59 Other: Weight 117.934 kg PHYSICAL EXAMINATION: GENERAL: The patient is alert and oriented x3, not in any acute distress. Well developed, well nourished. HEENT: Pupils are round and equally reacting to light. EOMI. No scleral icterus. No conjunctival pallor. Normocephalic, atraumatic. No pharyngeal erythema. No thyromegaly. CARDIOVASCULAR: S1 and S2 present. No murmurs, rubs, or gallops. PULMONARY: Chest is clear to auscultation, no wheezing or crackles. ABDOMEN: Soft, nontender, nondistended, normoactive bowel sounds. No palpable organomegaly. MUSCULOSKELETAL: No joint swelling or deformity. EXTREMITIES: No cyanosis, clubbing, or pedal edema. NEUROLOGICAL: Gross neurological examination did not reveal any focal deficits. SKIN: No rashes. Results CBC & Chem 7: 01/22/21 07:47 01/22/21 07:47 Labs: Abnormal Lab Results - Last 24 Hours (Table) 01/21/21 01/21/21 Range/Units 08:15 08:15 MCHC 30.5 L (31.0-37.0) g/dL RDW 16.1 H (11.5-15.5) % Lymphocytes # 0.7 L (1.0-4.8) k/uL Chloride 95 L (98-107) mmol/L Carbon Dioxide 38 H (22-30) mmol/L BUN 21 H (7-17) mg/dL Glucose 115 H (74-99) mg/dL Albumin 3.3 L (3.5-5.0) g/dL Assessment and Plan Assessment: 1. Acute exacerbation CHF/hypoxemia; patient received Lasix 40 mg IV 1 in ED; does not seem to be markedly fluid overloaded; cardiology is consulted and we will wait for further recommendations 2. New-onset atrial fibrillation with RVR; currently rate controlled; cardiology is consulted and recommendations are pending 3. Possible atypical pneumonia; we will start patient on azithromycin; monitor CBC, CRP and pro-calcitonin 4. Hypertension; continue home dose of lisinopril at 30 mg daily and amlodipine 5 mg daily 5. Hyperlipidemia; Zocor 20 mg daily 6. COPD; mild exacerbation; we will continue with home therapy in form of Symbicort 2 puffs twice a day; we will add DuoNeb nebulizer treatments 4 times a day and when necessary; start patient on prednisone 40 mg by mouth twice a day with plan for a quick taper in next 24-48 hours 7. Depression/anxiety; Paxil 30 mg daily with Xanax 0.25 mg daily when necessary DVT prophylaxis; SCDs/systemic anticoagulation CODE STATUS; full code
[2021-01-22] MEDS: AZITHROMYCIN 500 MG in SODIUM CHLORIDE 0.9% 250 ML IVPB SCH (13:42)
--- NOTE | 2021-01-22 14:59 | ECHOF ---
Referral Reason:congestive heart failure MEASUREMENTS -------- HEIGHT: 172.7 cm WEIGHT: 104.8 kg BP: RVIDd: 2.8 cm (< 3.3) IVSd: 1.4 cm (0.6 - 1.1) LVIDd: 4.4 cm (3.9 - 5.3) LVPWd: 1.7 cm (0.6 - 1.1) IVSs: 1.7 cm LVIDs: 3.1 cm LVPWs: 1.6 cm LA Diam: 4.6 cm (2.7 - 3.8) Ao Diam: 2.9 cm (2.0 - 3.7) AV Cusp: 0.7 cm (1.5 - 2.6) MV EXCURSION: 12.495 mm (> 18.000) MV EF SLOPE: 31 mm/s (70 - 150) EPSS: 1.0 cm MV E Lucio: 1.41 m/s MV DecT: 284 ms MV A Lucio: 1.92 m/s MV E/A Ratio: 0.74 AV maxP.45 mmHg AV meanP.65 mmHg RAP: 5.00 mmHg RVSP: 45.10 mmHg FINDINGS -------- Sinus rhythm. This was a technically good study. The left ventricular size is normal. There is moderate concentric left ventricular hypertrophy. O verall left ventricular systolic function is normal with, an EF between 55 - 60 %. The right ventricle is normal in size. The left atrium is mildly dilated. The right atrial size is normal. There is severe aortic stenosis present. Peak/mean gradient across the Aortic Valve is 70.45mmHg / 41.65mmHg. No mitral regurgitation. The peak and mean MV gradients are 18.88mmHg 7.88mmHg as measured by dopp ler. Eyon-ae-hcdfnjuo mitral stenosis , with a MVA of 2.2cm (by PHT) Mild tricuspid regurgitation present. There is mild pulmonary hypertension. The right ventricular systolic pressure, as measured by Doppler, is 45.10mmHg. Trace/mild (physiologic) pulmonic regurgitation. The aortic root size is normal. Echo free space may represent effusion or a pericardial fat pad. Small Pleural Effusion. CONCLUSIONS -------- 1. The left ventricular size is normal. 2. There is moderate concentric left ventricular hypertrophy. 3. Overall left ventricular systolic function is normal with, an EF between 55 - 60 %. 4. The right ventricle is normal in size. 5. The left atrium is mildly dilated. 6. The right atrial size is normal. 7. There is severe aortic stenosis present. 8. Peak/mean gradient across the Aortic Valve is 70.45mmHg / 41.65mmHg. 9. No mitral regurgitation. 10. The peak and mean MV gradients are 18.88mmHg 7.88mmHg as measured by doppler. 11. Dxau-em-cnpjqshk mitral stenosis. 12. , with a MVA of 2.2cm (by PHT) 13. Mild tricuspid regurgitation present. 14. There is mild pulmonary hypertension. 15. The right ventricular systolic pressure, as measured by Doppler, is 45.10mmHg. 16. Trace/mild (physiologic) pulmonic regurgitation. 17. The aortic root size is normal. 18. Small Pleural Effusion. COPY LATHE OPERATOR: Janell Miles RDCS
[2021-01-22] MEDS: ALPRAZolam 0.25 MG TAB PO PRN (19:49)
[2021-01-22] MEDS: predniSONE 20 MG TAB PO SCH (21:35)
[2021-01-23] MEDS: SYMBICORT 160-4.5 MCG INHALER INHALATION SCH ×2 (07:23→20:30)
[2021-01-23 08:24] LABS: Basophils % (A) 0 %; Eosinophils % (A) 0 %; HGB 12.6 gm/dL (11.4-16.0); Hypochromasia Marked; Lymphocytes # (A) 0.4 k/uL (1.0-4.8); Lymphocytes % (A) 5 %; MCH 26.9 pg (25.0-35.0); MCHC 30.7 g/dL (31.0-37.0); MCV 87.6 fL (80.0-100.0); Mean Platelet Volume 7.5; Monocytes # (A) 0.2 k/uL (0-1.0); Monocytes % (A) 2 %; Neutrophils # (A) 7.5 k/uL (1.3-7.7); Neutrophils % (A) 93 %; Platelet Count 217 k/uL (150-450); RBC 4.68 m/uL (3.80-5.40); RDW 15.7 % (11.5-15.5); WBC 8.1 k/uL (3.8-10.6)
[2021-01-23] MEDS: PARoxetine 10 MG TAB PO SCH (08:34)
[2021-01-23] MEDS: OXYBUTYNIN 10 MG TAB.ER.24 PO SCH (08:34)
[2021-01-23] MEDS: AZITHROMYCIN 500 MG in SODIUM CHLORIDE 0.9% 250 ML IVPB SCH (08:34)
[2021-01-23] MEDS: amLODIPine 5 MG TAB PO SCH (08:34)
[2021-01-23] MEDS: MULTIVITAMINS, THERA 1 EACH TAB PO SCH (08:35)
[2021-01-23] MEDS: predniSONE 20 MG TAB PO SCH (08:35)
[2021-01-23] MEDS: lisinopriL 20 MG TAB PO SCH ×2 (08:35→20:55)
[2021-01-23] MEDS: ATORVASTATIN 10 MG TAB PO SCH (08:35)
[2021-01-23] MEDS: APIXABAN 5 MG TAB PO SCH (08:35)
[2021-01-23 08:38] LABS: African American GFR (CKD) >90 (>60 ml/min/1.73 sqM); Anion Gap 8 mmol/L; Blood Urea Nitrogen 20 mg/dL (7-17); Calcium 9.2 mg/dL (8.4-10.2); Chloride 91 mmol/L (98-107); Glucose 144 mg/dL (74-99); Non-African American GFR(CKD) 82 (>60 ml/min/1.73 sqM); Potassium 4.4 mmol/L (3.5-5.1); Sodium 139 mmol/L (137-145)
[2021-01-23 09:21] LABS: Carbon Dioxide 41 mmol/L (22-30)
--- NOTE | 2021-01-23 09:54 | P.PN ---
Subjective Progress Note Date: 01/22/21 Principal diagnosis: Acute exacerbation CHF New onset atrial fibrillation Possible atypical pneumonia Minus COPD exacerbation 80-year-old female with history of COPD, normally on 2 L, hypertension, presenting to the emergency department via EMS for shortness of breath. Upon arrival, EMS states that her oxygen was in the upper 70s, they found many kinks in her O2 tubing, they put her on 3 L and her O2 quickly came up to the 90s. Patient has been complaining of increased weakness over the past couple days, her appetite has been low for over a month now according to her daughter. She is prescribed Lasix however stopped taking about a month ago secondary to not wanting to get to the restroom often. Currently she denies any chest pain, she states her breathing has improved. She denies any pain anywhere. She states she has noticed increased swelling in her right lower leg that is not painful. She has been weaker over the last couple days, had a fall about 3-4 days ago, she denies any pain from the fall, she denies hitting her head. She denies dizziness or lightheadedness, no abdominal pain, nausea or vomiting. Denies any recent fevers or chills. She has no further complaints at this time. Upon arrival to the ER, her pulse is 108, 91% on 3 L, rest of vitals normal. EKG Findings:: A. fib with RVR, left axis deviation, no signs of acute ST segment elevation. This is a change, no history of A. fib. Ventricular rate 104, QRS duration 84, QTC 292. Review shows to PVC 0.8, hemoglobin 12.8 and platelet count of 224, sodium 139, potassium 4.5, BUN/creatinine of 21/0.60 and blood glucose of 1:15 01/22/2021 Patient is seen and evaluated sitting up in bed; reports no improvement in breathing; once at home medications reviewed stating some of them have not been ordered; list of medications reviewed with patient; all meds have been ordered Vital signs are reviewed revealing temperature of 98.8, pulse 77, respiration 25 and blood pressure 140/63 O2 saturation 99% Lab review shows WBC 8.0, hemoglobin 11.8 and platelet count of 200, sodium 138, potassium 3.9, BUN/creatinine of 21/0.64 Patient has been evaluated by cardiology for new onset atrial fibrillation and recommended to continue with beta blockers for rate control; Eliquis 5 mg twice a day for anticoagulation; echocardiogram is ordered and pending; TSH is ordered Lisinopril is increased to 20 mg twice a day for blood pressure control Patient remains on DuoNeb nebulizer treatment, prednisone and azithromycin for mild COPD exacerbation Objective - Vital Signs Vital signs: Vital Signs Temp 97.8 F 01/22/21 08:00 Pulse 77 01/22/21 08:00 Resp 25 H 01/22/21 08:00 BP 140/63 01/22/21 08:00 Pulse Ox 99 01/22/21 08:00 Intake & Output 01/21/21 01/22/21 01/22/21 18:59 06:59 18:59 Intake Total 318 Output Total 0 900 Balance 318 -900 Weight 99 kg 100.5 kg 100.5 kg Intake: Oral 318 Output: Urine 0 900 Straight 450 Other: Voiding Method Bedpan Bedpan Bedpan Incontinent Incontinent Incontinent # Voids 0 - Exam GENERAL: The patient is alert and oriented x3, not in any acute distress. Well developed, well nourished. HEENT: Pupils are round and equally reacting to light. EOMI. No scleral icterus. No conjunctival pallor. Normocephalic, atraumatic. No pharyngeal erythema. No thyromegaly. CARDIOVASCULAR: S1 and S2 present. No murmurs, rubs, or gallops. PULMONARY: Chest is clear to auscultation, no wheezing or crackles. ABDOMEN: Soft, nontender, nondistended, normoactive bowel sounds. No palpable organomegaly. MUSCULOSKELETAL: No joint swelling or deformity. EXTREMITIES: No cyanosis, clubbing, or pedal edema. NEUROLOGICAL: Gross neurological examination did not reveal any focal deficits. SKIN: No rashes. - Labs CBC & Chem 7: 01/23/21 06:52 01/23/21 06:52 Labs: Abnormal Lab Results - Last 24 Hours (Table) 01/21/21 01/21/21 01/22/21 Range/Units 20:23 20:27 07:47 MCHC 30.2 L (31.0-37.0) g/dL RDW 16.1 H (11.5-15.5) % Lymphocytes # 0.7 L (1.0-4.8) k/uL ABG pH 7.30 L (7.35-7.45) ABG pCO2 91 H* (35-45) mmHg ABG HCO3 45 H* (21-25) mmol/L ABG Total CO2 48 H (19-24) mmol/L Chloride (98-107) mmol/L Carbon Dioxide (22-30) mmol/L BUN (7-17) mg/dL POC Glucose (mg/dL) 105 H (75-99) mg/dL 01/22/21 Range/Units 07:47 MCHC (31.0-37.0) g/dL RDW (11.5-15.5) % Lymphocytes # (1.0-4.8) k/uL ABG pH (7.35-7.45) ABG pCO2 (35-45) mmHg ABG HCO3 (21-25) mmol/L ABG Total CO2 (19-24) mmol/L Chloride 93 L (98-107) mmol/L Carbon Dioxide 40 H (22-30) mmol/L BUN 21 H (7-17) mg/dL POC Glucose (mg/dL) (75-99) mg/dL Assessment and Plan Assessment: 1. Acute exacerbation CHF/hypoxemia; patient received Lasix 40 mg IV 1 in ED; does not seem to be markedly fluid overloaded; cardiology is consulted and we will wait for further recommendations 2. New-onset atrial fibrillation with RVR; currently rate controlled; cardiology is consulted and recommendations are pending 3. Possible atypical pneumonia; we will start patient on azithromycin; monitor CBC, CRP and pro-calcitonin 4. Hypertension; continue home dose of lisinopril at 30 mg daily and amlodipine 5 mg daily 5. Hyperlipidemia; Zocor 20 mg daily 6. COPD; mild exacerbation; we will continue with home therapy in form of Symbicort 2 puffs twice a day; we will add DuoNeb nebulizer treatments 4 times a day and when necessary; start patient on prednisone 40 mg by mouth twice a day with plan for a quick taper in next 24-48 hours 7. Depression/anxiety; Paxil 30 mg daily with Xanax 0.25 mg daily when necessary DVT prophylaxis; SCDs/systemic anticoagulation CODE STATUS; full code
[2021-01-23 11:26] LABS: ABG Base Excess 18.3 mmol/L; ABG Oxygen Saturation 85.5 % (94-97); ABG PCO2 60 mmHg (35-45); ABG PH 7.46 (7.35-7.45); ABG TCO2 44 mmol/L (19-24); Allen Test Performed? Yes
[2021-01-23 11:31] LABS: ABG HCO3 42 mmol/L (21-25); ABG PO2 47 mmHg (83-108)
--- NOTE | 2021-01-23 11:43 | P.PN ---
Subjective Progress Note Date: 01/23/21 Principal diagnosis: Atrial fibrillation, congestive heart failure This is Marek robin NP, dictating a progress note on behalf of Dr. Braden. Patient was interviewed and examined. Patient is a pleasant 80-year-old female who initially presented to the hospital with congestive heart failure, new onset A. fib, and hypoxia. Patient reports she is much improved today. We changed the patient's lisinopril yesterday to 20 twice a day, and started Eliquis 5 mg twice a day. TSH was found to be 1.460. We also ordered an echocardiogram, please see the report for full results. EF is 55-60%. Patient has severe aortic stenosis, correlated with a systolic murmur on examination. GENERAL: Well-appearing, well-nourished and in no acute distress. NECK: Supple without JVD or thyromegaly. LUNGS: Breath sounds demonstrate expiratory wheezing to auscultation bilaterally. Respiration equal and unlabored. No wheezes, rales or rhonchi. HEART: Regular rate and rhythm, systolic murmur, rubs or gallops. S1 and S2 heard. EXTREMITIES: Normal range of motion, no edema. No clubbing or cyanosis. Peripheral pulses intact and strong. VITALS: [Temp 98.1, pulse rate 95, respirations 18, blood pressure 131/86, O2 saturation 91% on 3 L of oxygen by nasal cannula.] TELEMETRY: [Rate controlled atrial fibrillation] LABS: [White count 8.1, hemoglobin 12.6, platelets 217, sodium 139, potassium 4.4, BUN 20, creatinine 0.6, calcium 9.2, TSH 1.460] IMPRESSION/PLAN: [1. Atrial fibrillation with rapid ventricular response-patient continues to be rate controlled. Patient appears to be tolerating Eliquis well. Continue anticoagulation. 2. Hypertension-patient's blood pressure is much better controlled today. We'll continue with lisinopril and amlodipine.] 3. Severe aortic stenosis- Outpatient reevaluation of aortic stenosis management strategy. The patient has been seen and evaluated. Plan of care has been reviewed and agreed upon by Dr. Braden. Objective - Vital Signs Vital signs: Vital Signs Temp 98.1 F 01/23/21 08:00 Pulse 95 01/23/21 08:00 Resp 18 01/23/21 08:00 BP 131/86 01/23/21 08:00 Pulse Ox 91 L 01/23/21 08:00 Intake & Output 01/22/21 01/23/21 01/23/21 18:59 06:59 18:59 Intake Total 730 240 180 Balance 730 240 180 Weight 100.5 kg Intake: Intake, IV Titration 250 Amount Azithromycin 500 mg In 250 Sodium Chloride 0.9% 250 ml @ 250 mls/hr IVPB DAILY [facility] Rx#:[id number] Oral 480 240 180 Other: Voiding Method Bedpan Bedpan Bedpan # Voids 1 - Labs CBC & Chem 7: 01/23/21 06:52 01/23/21 06:52 Labs: Abnormal Lab Results - Last 24 Hours (Table) 01/23/21 01/23/21 Range/Units 06:52 06:52 MCHC 30.7 L (31.0-37.0) g/dL RDW 15.7 H (11.5-15.5) % Lymphocytes # 0.4 L (1.0-4.8) k/uL Chloride 91 L (98-107) mmol/L Carbon Dioxide 41 H* (22-30) mmol/L BUN 20 H (7-17) mg/dL Glucose 144 H (74-99) mg/dL
[2021-01-23] MEDS ORDERED: IPRATROPIUM-ALBUTEROL 3 ML NEB INHALATION PRN (16:23)
--- NOTE | 2021-01-23 16:24 | P.CNPUL ---
History of Present Illness Consult date: 01/23/21 Requesting physician: Yasmany E Isis Reason for consult: dyspnea, COPD, hypoxemia, pleural effusion, abnormal CXR/CT Chief complaint: Shortness of breath. History of present illness: Pulmonary consult dated 01/23/2021. Up to 80-year-old female with a history of COPD, from 42 years of tobacco use at 1-2 packs a day, and hypertension, who presents to the emergency department, on January 21, complaining of weakness, and shortness of breath. She apparently was brought in by EMS, and when they came to pick her up, to bring her into the hospital, her saturations are in the 70s. She does use oxygen at home, but doesn't use it all the time. The patient also apparently uses Symbicort for her COPD. I asked her whether or not she's never seen a lung doctor, but she is not sure that she has. In addition to the above, she complains of profound weakness, and poor appetite. She also previously was on Lasix, but recently stopped using it. She denied any chest pain or chest discomfort. There is no fever or chills. Her chest x-ray appears to show cardiomegaly, with a large right pleural effusion. An ultrasound was ordered to rule out free-flowing fluid, that might benefit from thoracentesis. She sitting in bed. She is on oxygen at 4 L. Saturations are 94%. Laboratory data includes a white count 8.1, he will been 12.6, hematocrit 41.0, and a normal platelet count. A recent blood gases showed a pO2 47, pCO2 of 60, and a pH is 7.46. She did not use BiPAP last night, but use it the night before. Sodium 139, potassium 4.4, chlorides 91, CO2 41, anion gap 8, BUN 20, with a creatinine 0.68. It appears that her baseline bicarbonate concentration is 38, meaning that her baseline PaCO2 is 65, plus or -2 mmHg. Chest x-ray shows what appears to be a moderate right-sided pleural effusion, and some interstitial changes. Review of Systems REVIEW OF SYSTEMS: CONSTITUTIONAL: Weakness. NEUROLOGIC: [ Negative.] HEENT: [ Negative.] CARDIAC: [Negative.] PULMONARY: Shortness of breath. GI: [Negative.] : [Negative.] RHEUMATOLOGIC: [ Negative.] IMMUNOLOGIC: [ Negative.] ENDOCRINE: [Negative. ] DERMATOLOGIC: [Negative.] Past Medical History Past Medical History: COPD, Hypertension History of Any Multi-Drug Resistant Organisms: None Reported Past Surgical History: Adenoidectomy, Appendectomy, Section, Hysterectomy, Tonsillectomy Past Anesthesia/Blood Transfusion Reactions: No Reported Reaction Past Psychological History: Anxiety, Depression Smoking Status: Former smoker Past Alcohol Use History: None Reported Past Drug Use History: None Reported - Past Family History Mother Family Medical History: Cancer Medications and Allergies Home Medications Medication Instructions Recorded Confirmed Type ALPRAZolam [Xanax] 0.25 mg PO DAILY PRN 01/19/17 01/21/21 History Aspirin EC [Ecotrin Low Dose] 81 mg PO DAILY 01/19/17 01/21/21 History Budesonide/Formoterol Fumarate 2 puff INHALATION RT-BID 01/19/17 01/21/21 History [Symbicort 160-4.5 Mcg Inhaler] Multivitamins, Thera [Multivitamin 1 tab PO DAILY 01/19/17 01/21/21 History (formulary)] PARoxetine HCL 30 mg PO DAILY 01/19/17 01/21/21 History Simvastatin [Zocor] 20 mg PO DAILY 01/19/17 01/21/21 History amLODIPine [Norvasc] 5 mg PO DAILY 01/19/17 01/21/21 History lisinopriL 30 mg PO DAILY 01/19/17 01/21/21 History Albuterol Sulfate [Ventolin HFA] 2 puff INHALATION RT-QID PRN 01/21/21 01/21/21 History Tolterodine Tartrate [Detrol LA] 4 mg PO DAILY 01/21/21 01/21/21 History Allergies Allergy/AdvReac Type Severity Reaction Status Date / Time aspirin AdvReac Nausea Verified 01/21/21 08:40 Physical Exam Osteopathic Statement: *. No significant issues noted on an osteopathic structural exam other than those noted in the History and Physical/Consult. Vitals: Vital Signs Temp Pulse Resp BP Pulse Ox 01/23/21 14:00 18 01/23/21 12:00 93 18 128/64 94 L 01/23/21 08:00 98.1 F 95 18 131/86 91 L 01/23/21 04:00 97.9 F 93 20 154/84 93 L 01/23/21 02:00 89 22 01/23/21 00:00 98.0 F 89 22 137/71 98 01/22/21 20:00 98.0 F 84 22 147/68 94 L Intake and Output 01/23/21 01/23/21 01/23/21 06:59 14:59 22:59 Intake Total 240 360 Output Total 500 Balance 240 -140 Intake: Oral 240 360 Output: Urine 500 Other: Voiding Method Bedpan Bedpan # Voids 1 # Bowel Movements 1 Mildly tachypnea, sitting up in bed, on 4 L nasal O2. HEENT examination is grossly unremarkable. Neck supple. Full range of motion. No adenopathy thyromegaly or neck vein distention. Cardiovascular examination reveals regular rhythm rate. S1-S2 normal. No S3 or S4. A 2/6 systolic murmur is noted. Heart sounds are distant. Heart rate 93 bpm. Lungs reveal bibasilar crackles with decreased breath sounds at the right base. No wheezes or rhonchi. Abdomen soft bowel sounds are heard. No masses or tenderness. Extremities are intact. No cyanosis clubbing or edema. Skin is without rash or lesion. Neurologic examination is brief but nonfocal. Results - Laboratory Findings CBC and BMP: 01/23/21 06:52 01/23/21 06:52 ABG ABG pH 7.46 (7.35-7.45) H 01/23/21 11:25 ABG pCO2 60 mmHg (35-45) H 01/23/21 11:25 ABG pO2 47 mmHg (83-108) L* 01/23/21 11:25 ABG O2 Saturation 85.5 % (94-97) L 01/23/21 11:25 PT/INR, D-dimer PT 11.2 sec (9.0-12.0) 01/21/21 08:15 INR 1.1 (<1.2) 01/21/21 08:15 Abnormal lab findings: Abnormal Labs 01/21/21 01/21/21 01/21/21 08:15 08:15 09:35 MCHC 30.5 L RDW 16.1 H Lymphocytes # 0.7 L ABG pH ABG pCO2 ABG pO2 ABG HCO3 ABG Total CO2 ABG O2 Saturation Chloride 95 L Carbon Dioxide 38 H BUN 21 H Glucose 115 H POC Glucose (mg/dL) Albumin 3.3 L Urine Appearance Cloudy H Urine Protein 1+ H Urine Ketones 2+ H Ur Squamous Epith Cells 5 H Amorphous Sediment Few H Urine Bacteria Rare H Urine Mucus Occasional H 01/21/21 01/21/21 01/22/21 20:23 20:27 07:47 MCHC 30.2 L RDW 16.1 H Lymphocytes # 0.7 L ABG pH 7.30 L ABG pCO2 91 H* ABG pO2 ABG HCO3 45 H* ABG Total CO2 48 H ABG O2 Saturation Chloride Carbon Dioxide BUN Glucose POC Glucose (mg/dL) 105 H Albumin Urine Appearance Urine Protein Urine Ketones Ur Squamous Epith Cells Amorphous Sediment Urine Bacteria Urine Mucus 01/22/21 01/23/21 01/23/21 07:47 06:52 06:52 MCHC 30.7 L RDW 15.7 H Lymphocytes # 0.4 L ABG pH ABG pCO2 ABG pO2 ABG HCO3 ABG Total CO2 ABG O2 Saturation Chloride 93 L 91 L Carbon Dioxide 40 H 41 H* BUN 21 H 20 H Glucose 144 H POC Glucose (mg/dL) Albumin Urine Appearance Urine Protein Urine Ketones Ur Squamous Epith Cells Amorphous Sediment Urine Bacteria Urine Mucus 01/23/21 11:25 MCHC RDW Lymphocytes # ABG pH 7.46 H ABG pCO2 60 H ABG pO2 47 L* ABG HCO3 42 H* ABG Total CO2 44 H ABG O2 Saturation 85.5 L Chloride Carbon Dioxide BUN Glucose POC Glucose (mg/dL) Albumin Urine Appearance Urine Protein Urine Ketones Ur Squamous Epith Cells Amorphous Sediment Urine Bacteria Urine Mucus - Diagnostic Findings Chest x-ray: image reviewed U/S of Legs: image reviewed Assessment and Plan Assessment: Shortness of breath, likely multifactorial, possibly related to underlying COPD exacerbation, but also CHF, with a moderate right-sided pleural effusion. History of aortic stenosis. Previous history of heavy tobacco use. History of hypertension. History of hyperlipidemia. History of urinary incontinence. Obesity. Plan: Plan dated 01/23/2021. The patient's pro-calcitonin level is very normal. Antibiotics will be discontinued. The patient will stay on Symbicort,. We will add duo nebs. In addition, we'll put Eliquis on hold. An ultrasound of the right chest was ordered. Additional recommendations and suggestions are forthcoming. Prognosis is guarded. Time with Patient: Greater than 30
--- NOTE | 2021-01-23 16:46 | P.PN ---
Subjective Progress Note Date: 01/23/21 Principal diagnosis: Acute exacerbation CHF New onset atrial fibrillation Possible atypical pneumonia Minus COPD exacerbation 80-year-old female with history of COPD, normally on 2 L, hypertension, presenting to the emergency department via EMS for shortness of breath. Upon arrival, EMS states that her oxygen was in the upper 70s, they found many kinks in her O2 tubing, they put her on 3 L and her O2 quickly came up to the 90s. Patient has been complaining of increased weakness over the past couple days, her appetite has been low for over a month now according to her daughter. She is prescribed Lasix however stopped taking about a month ago secondary to not wanting to get to the restroom often. Currently she denies any chest pain, she states her breathing has improved. She denies any pain anywhere. She states she has noticed increased swelling in her right lower leg that is not painful. She has been weaker over the last couple days, had a fall about 3-4 days ago, she denies any pain from the fall, she denies hitting her head. She denies dizziness or lightheadedness, no abdominal pain, nausea or vomiting. Denies any recent fevers or chills. She has no further complaints at this time. Upon arrival to the ER, her pulse is 108, 91% on 3 L, rest of vitals normal. EKG Findings:: A. fib with RVR, left axis deviation, no signs of acute ST segment elevation. This is a change, no history of A. fib. Ventricular rate 104, QRS duration 84, QTC 292. Review shows to PVC 0.8, hemoglobin 12.8 and platelet count of 224, sodium 139, potassium 4.5, BUN/creatinine of 21/0.60 and blood glucose of 1:15 01/22/2021 Patient is seen and evaluated sitting up in bed; reports no improvement in breathing; once at home medications reviewed stating some of them have not been ordered; list of medications reviewed with patient; all meds have been ordered Vital signs are reviewed revealing temperature of 98.8, pulse 77, respiration 25 and blood pressure 140/63 O2 saturation 99% Lab review shows WBC 8.0, hemoglobin 11.8 and platelet count of 200, sodium 138, potassium 3.9, BUN/creatinine of 21/0.64 Patient has been evaluated by cardiology for new onset atrial fibrillation and recommended to continue with beta blockers for rate control; Eliquis 5 mg twice a day for anticoagulation; echocardiogram is ordered and pending; TSH is ordered Lisinopril is increased to 20 mg twice a day for blood pressure control Patient remains on DuoNeb nebulizer treatment, prednisone and azithromycin for mild COPD exacerbation 01/23/2021 Patient is seen and evaluated in room at bedside; sitting up in bed; had an episode of desaturation in the morning with oxygen saturation dropping down in 80s Vital signs are reviewed and reveal temperature of 98.1, pulse 95, respiration 18 blood pressure 131/86 and O2 saturation of 91% on 4 L Stat ABGs were done which revealed a pH of 7.46, pCO2 of 60, pO2 of 47 and O2 saturation of 85.5 Pulmonary is consulted and recommending to continue with current bronchodilator and steroid regimen; Eliquis is recommended to be placed on hold; she did have an ultrasound of the chest done to evaluate pleural effusion; pending results patient might need thoracentesis Atrial fibrillation with RVR remains rate controlled; blood pressures currently stable; cardiology is following Objective - Vital Signs Vital signs: Vital Signs Temp 97.9 F 01/23/21 04:00 Pulse 93 01/23/21 04:00 Resp 20 01/23/21 04:00 BP 154/84 01/23/21 04:00 Pulse Ox 93 L 01/23/21 04:00 Intake & Output 01/22/21 01/23/21 01/23/21 18:59 06:59 18:59 Intake Total 730 240 180 Balance 730 240 180 Weight 100.5 kg Intake: Intake, IV Titration 250 Amount Azithromycin 500 mg In 250 Sodium Chloride 0.9% 250 ml @ 250 mls/hr IVPB DAILY [facility] Rx#:[id number] Oral 480 240 180 Other: Voiding Method Bedpan Bedpan # Voids 1 - Exam GENERAL: The patient is alert and oriented x3, not in any acute distress. Well developed, well nourished. HEENT: Pupils are round and equally reacting to light. EOMI. No scleral icterus. No conjunctival pallor. Normocephalic, atraumatic. No pharyngeal erythema. No thyromegaly. CARDIOVASCULAR: S1 and S2 present. No murmurs, rubs, or gallops. PULMONARY: Chest is clear to auscultation, no wheezing or crackles. ABDOMEN: Soft, nontender, nondistended, normoactive bowel sounds. No palpable organomegaly. MUSCULOSKELETAL: No joint swelling or deformity. EXTREMITIES: No cyanosis, clubbing, or pedal edema. NEUROLOGICAL: Gross neurological examination did not reveal any focal deficits. SKIN: No rashes. - Labs CBC & Chem 7: 01/23/21 06:52 01/23/21 06:52 Labs: Abnormal Lab Results - Last 24 Hours (Table) 01/23/21 01/23/21 Range/Units 06:52 06:52 MCHC 30.7 L (31.0-37.0) g/dL RDW 15.7 H (11.5-15.5) % Lymphocytes # 0.4 L (1.0-4.8) k/uL Chloride 91 L (98-107) mmol/L Carbon Dioxide 41 H* (22-30) mmol/L BUN 20 H (7-17) mg/dL Glucose 144 H (74-99) mg/dL Assessment and Plan Assessment: 1. Acute exacerbation CHF/hypoxemia; patient received Lasix 40 mg IV 1 in ED; does not seem to be markedly fluid overloaded; cardiology is consulted and we will wait for further recommendations 2. New-onset atrial fibrillation with RVR; currently rate controlled; cardiology is consulted and recommendations are pending 3. Possible atypical pneumonia; we will start patient on azithromycin; monitor CBC, CRP and pro-calcitonin 4. Hypertension; continue home dose of lisinopril at 30 mg daily and amlodipine 5 mg daily 5. Hyperlipidemia; Zocor 20 mg daily 6. COPD; mild exacerbation; we will continue with home therapy in form of Symbicort 2 puffs twice a day; we will add DuoNeb nebulizer treatments 4 times a day and when necessary; start patient on prednisone 40 mg by mouth twice a day with plan for a quick taper in next 24-48 hours 7. Depression/anxiety; Paxil 30 mg daily with Xanax 0.25 mg daily when necessary DVT prophylaxis; SCDs/systemic anticoagulation CODE STATUS; full code
--- NOTE | 2021-01-23 18:50 | US ---
EXAMINATION TYPE: US chest DATE OF EXAM: 01/23/2021 COMPARISON: NONE CLINICAL HISTORY: Right pleural effusion. TECHNIQUE: Targeted ultrasound of the posterior lower right hemithorax Exam done portable EXAM MEASUREMENTS: Right Pleural Effusion pocket size: 7.8 cm Right skin surface to fluid distance: 3.3 cm Right side marked for possible thoracentesis outside the dept. Pulmonologists are able to review the images in the patient?s EMR. IMPRESSIONS: Moderate right-sided pleural effusion is demonstrated.
[2021-01-23] MEDS ORDERED: FORMOTEROL FUMARATE 20 MCG/2 ML NEBU INHALATION SCH (20:00)
[2021-01-23] MEDS ORDERED: BUDESONIDE 0.5 MG/2 ML NEBU INHALATION SCH (20:00)
[2021-01-23] MEDS: IPRATROPIUM-ALBUTEROL 3 ML NEB INHALATION SCH (20:30)
[2021-01-23] MEDS: ALPRAZolam 0.25 MG TAB PO PRN (20:55)
[2021-01-24 06:42] LABS: Basophils % (A) 0 %; Eosinophils # (A) 0.1 k/uL (0-0.7); Eosinophils % (A) 1 %; HCT 38.6 % (34.0-46.0); HGB 11.9 gm/dL (11.4-16.0); Hypochromasia Moderate; Lymphocytes # (A) 0.7 k/uL (1.0-4.8); Lymphocytes % (A) 8 %; MCHC 30.9 g/dL (31.0-37.0); MCV 87.3 fL (80.0-100.0); Monocytes # (A) 0.7 k/uL (0-1.0); Monocytes % (A) 7 %; Neutrophils # (A) 7.6 k/uL (1.3-7.7); Neutrophils % (A) 83 %; Platelet Count 200 k/uL (150-450); RBC 4.42 m/uL (3.80-5.40); RDW 15.8 % (11.5-15.5); WBC 9.1 k/uL (3.8-10.6)
[2021-01-24 07:24] LABS: African American GFR (CKD) >90 (>60 ml/min/1.73 sqM); Blood Urea Nitrogen 18 mg/dL (7-17); Calcium 9.1 mg/dL (8.4-10.2); Chloride 96 mmol/L (98-107); Glucose 116 mg/dL (74-99); Non-African American GFR(CKD) 85 (>60 ml/min/1.73 sqM); Sodium 142 mmol/L (137-145)
[2021-01-24 07:31] LABS: Anion Gap 8 mmol/L
[2021-01-24 07:33] LABS: Carbon Dioxide 38 mmol/L (22-30)
[2021-01-24] MEDS: IPRATROPIUM-ALBUTEROL 3 ML NEB INHALATION SCH ×4 (07:38→19:11)
[2021-01-24] MEDS: SYMBICORT 160-4.5 MCG INHALER INHALATION SCH ×2 (07:39→19:11)
[2021-01-24] MEDS: OXYBUTYNIN 10 MG TAB.ER.24 PO SCH (10:14)
[2021-01-24] MEDS: amLODIPine 5 MG TAB PO SCH (10:14)
[2021-01-24] MEDS: MULTIVITAMINS, THERA 1 EACH TAB PO SCH (10:14)
[2021-01-24] MEDS: lisinopriL 20 MG TAB PO SCH ×2 (10:14→19:49)
[2021-01-24] MEDS: PARoxetine 10 MG TAB PO SCH (10:14)
[2021-01-24] MEDS: ATORVASTATIN 10 MG TAB PO SCH (10:15)
--- NOTE | 2021-01-24 10:17 | P.PN ---
Subjective Progress Note Date: 01/24/21 HISTORY OF PRESENT ILLNESS: This is an 80-year-old female who sees Dr. Braden in the office. She is admitted to the hospital secondary to congestive heart failure, atrial fibrillation, and hypoxia. Patient examined this morning at the bedside. Patient currently denies chest pain or pressure. She denies shortness of breath. Telemetry reveals sinus mechanism. The patient is prescribed Eliquis however this is on hold per pulmonary. Ultrasound of the chest has been completed revealing moderate right-sided pleural effusion. Echocardiogram completed revealed ejection fraction 55-60%, severe aortic stenosis, [id number] mitral stenosis, mild tricuspid regurgitation, mild pulmonary hypertension, and small pleural effusion. PHYSICAL EXAM: VITAL SIGNS: Reviewed. GENERAL: Well-developed in no acute distress. NECK: Supple. No JVD or thyromegaly LUNGS: Respirations even and unlabored. Lungs diminished to auscultation bilaterally. HEART: Regular rate and rhythm. S1 and S2 heard. Systolic murmur noted. EXTREMITIES: Normal range of motion. No clubbing or cyanosis. Peripheral pulses intact. No lower extremity edema ASSESSMENT: Shortness of breath Possible COPD exacerbation Moderate right-sided pleural effusion Acute diastolic congestive heart failure, patient received IV lasix x 1 dose Hypertension New onset paroxysmal atrial fibrillation, on anticoagulation with Eliquis, currently maintaining sinus mechanism Severe aortic stenosis PLAN: Continue current cardiac medications Eliquis on hold per pulmonary. Await recommendations regarding possible thoracentesis Outpatient evaluation of aortic stenosis Further recommendations pending patient's course Nurse practitioner note has been reviewed by physician. Signing provider agrees with the documented findings, assessment, and plan of care. Objective - Vital Signs Vital signs: Vital Signs Temp 98 F 01/24/21 04:00 Pulse 88 01/24/21 07:52 Resp 18 01/24/21 07:52 BP 142/59 01/24/21 04:00 Pulse Ox 94 L 01/24/21 07:42 Intake & Output 01/23/21 01/24/21 01/24/21 18:59 06:59 18:59 Intake Total 540 240 240 Output Total 500 700 Balance 40 -460 240 Weight 98.9 kg 100 kg Intake: Oral 540 240 240 Output: Urine 500 700 Other: Voiding Method Bedpan External Catheter # Voids 1 # Bowel Movements 1 - Labs CBC & Chem 7: 01/24/21 05:20 01/24/21 05:20 Labs: Abnormal Lab Results - Last 24 Hours (Table) 01/23/21 01/24/21 01/24/21 Range/Units 11:25 05:20 05:20 MCHC 30.9 L (31.0-37.0) g/dL RDW 15.8 H (11.5-15.5) % Lymphocytes # 0.7 L (1.0-4.8) k/uL ABG pH 7.46 H (7.35-7.45) ABG pCO2 60 H (35-45) mmHg ABG pO2 47 L* (83-108) mmHg ABG HCO3 42 H* (21-25) mmol/L ABG Total CO2 44 H (19-24) mmol/L ABG O2 Saturation 85.5 L (94-97) % Chloride 96 L (98-107) mmol/L Carbon Dioxide 38 H (22-30) mmol/L BUN 18 H (7-17) mg/dL Glucose 116 H (74-99) mg/dL
--- NOTE | 2021-01-24 10:19 | P.PN ---
Subjective Progress Note Date: 01/24/21 Up to 80-year-old female with a history of COPD, from 42 years of tobacco use at 1-2 packs a day, and hypertension, who presents to the emergency department, on January 21, complaining of weakness, and shortness of breath. She apparently was brought in by EMS, and when they came to pick her up, to bring her into the hospital, her saturations are in the 70s. She does use oxygen at home, but doesn't use it all the time. The patient also apparently uses Symbicort for her COPD. I asked her whether or not she's never seen a lung doctor, but she is not sure that she has. In addition to the above, she complains of profound weakness, and poor appetite. She also previously was on Lasix, but recently stopped using it. She denied any chest pain or chest discomfort. There is no fever or chills. Her chest x-ray appears to show cardiomegaly, with a large right pleural effusion. An ultrasound was ordered to rule out free-flowing fluid, that might benefit from thoracentesis. She sitting in bed. She is on oxygen at 4 L. Saturations are 94%. Laboratory data includes a white count 8.1, he will been 12.6, hematocrit 41.0, and a normal platelet count. A recent blood gases showed a pO2 47, pCO2 of 60, and a pH is 7.46. She did not use BiPAP last night, but use it the night before. Sodium 139, potassium 4.4, chlorides 91, CO2 41, anion gap 8, BUN 20, with a creatinine 0.68. It appears t hat her baseline bicarbonate concentration is 38, meaning that her baseline PaCO2 is 65, plus or -2 mmHg. Chest x-ray shows what appears to be a moderate right-sided pleural effusion, and some interstitial changes. On today's evaluation of 01/24/2021, the patient is being seen for a follow-up. The patient was seen in consultation yesterday for shortness of breath. The patient was found to be septic exacerbation addition to a component of CHF. She is known to have aortic valve stenosis. Chest x-ray showed a moderate-sized right-sided pleural effusion. Ultrasound of the chest also showed fluid pocket in the right measuring 7.8 cm in size. The patient is a 10 on long-term and to coagulation with Eliquis and Eliquis was placed also on hold. Currently she is on 4 L of oxygen by nasal cannula with a pulse ox of 94%. Her echocardiogram showed moderate LVH, ejection fraction of 55-60%, RV was within normal, there was severe aortic stenosis with a peak gradient of 70 mmHg and mild to moderate mitral stenosis with a mitral valve area of 2.2 cm mild pulmonary hypertension. Objective - Vital Signs Vital signs: Vital Signs Temp 98 F 01/24/21 04:00 Pulse 88 01/24/21 07:52 Resp 18 01/24/21 07:52 BP 142/59 01/24/21 04:00 Pulse Ox 94 L 01/24/21 07:42 Intake & Output 01/23/21 01/24/21 01/24/21 18:59 06:59 18:59 Intake Total 540 240 240 Output Total 500 700 Balance 40 -460 240 Weight 98.9 kg 100 kg Intake: Oral 540 240 240 Output: Urine 500 700 Other: Voiding Method Bedpan External Catheter # Voids 1 # Bowel Movements 1 - Exam Mildly tachypnea, sitting up in bed, on 4 L nasal O2. HEENT examination is grossly unremarkable. Neck supple. Full range of motion. No adenopathy thyromegaly or neck vein distention. Cardiovascular examination reveals regular rhythm rate. S1-S2 normal. No S3 or S4. 4 /6 systolic murmur is noted. Heart sounds are distant. Heart rate 93 b pm. Lungs reveal bibasilar crackles with decreased breath sounds at the right base. No wheezes or rhonchi. Abdomen soft bowel sounds are heard. No masses or tenderness. Extremities are intact. No cyanosis clubbing or edema. Skin is without rash or lesion. Neurologic examination is brief but nonfocal. - Labs CBC & Chem 7: 01/24/21 05:20 01/24/21 05:20 Labs: Abnormal Lab Results - Last 24 Hours (Table) 01/23/21 01/24/21 01/24/21 Range/Units 11:25 05:20 05:20 MCHC 30.9 L (31.0-37.0) g/dL RDW 15.8 H (11.5-15.5) % Lymphocytes # 0.7 L (1.0-4.8) k/uL ABG pH 7.46 H (7.35-7.45) ABG pCO2 60 H (35-45) mmHg ABG pO2 47 L* (83-108) mmHg ABG HCO3 42 H* (21-25) mmol/L ABG Total CO2 44 H (19-24) mmol/L ABG O2 Saturation 85.5 L (94-97) % Chloride 96 L (98-107) mmol/L Carbon Dioxide 38 H (22-30) mmol/L BUN 18 H (7-17) mg/dL Glucose 116 H (74-99) mg/dL Assessment and Plan Plan: 1 Shortness of breath, likely multifactorial, possibly related to underlying C OPD exacerbation, but also CHF, with a small- moderate right-sided pleural effusion. 2 History of aortic stenosis, severe 3 mitral valve stenosis, moderate 4 valvular heart disease secondary to above 5 Previous history of heavy tobacco use. 6 History of hypertension. 7 History of hyperlipidemia. 8 History of urinary incontinence. 9 Obesity. Plan: The patient's pro-calcitonin level is very normal. Antibiotics will be discontinued. The patient will stay on Symbicort,. We will add duo nebs. I reviewed the ultrasound images of the pleural fluid is essentially small at this point in time. I would suggest using diuretics and the patient will be placed on Lasix 20 mg IV every 12 hours. Repeat chest x-ray with next 24 hours. May restart Eliquis and this will discuss also with cardiology.
--- NOTE | 2021-01-24 12:15 | P.PN ---
Subjective 78-year-old male was admitted for acute hypoxic respiratory failure and is being treated for a heart failure it appears to have diastolic dysfunction. Patient apparently has a history of COPD as well patient uses 2 L of oxygen presently on 3 L of oxygen. Patient marko on IV Lasix. Probably discharge tomorrow if his respiratory status improves. Constitutional: Denied any fatigue denied any fever. Cardio vascular: denied any chest pain, palpitations Gastrointestinal denied any nausea vomiting Pulmonary: Denied any shortness of breath cough Neurologic denied any new focal deficits All inpatient medications were reviewed and appropriate changes in these medications as dictated in the interval history and assessment and plan. PHYSICAL EXAMINATION: GENERAL: The patient is alert and oriented x3, not in any acute distress. Well developed, well nourished. HEENT: Pupils are round and equally reacting to light. EOMI. No scleral icterus. No conjunctival pallor. Normocephalic, atraumatic. No pharyngeal erythema. No thyromegaly. CARDIOVASCULAR: S1 and S2 present. No murmurs, rubs, or gallops. There is a big systolic murmur and diuretic area PULMONARY: Chest is clear to auscultation, no wheezing or crackles. ABDOMEN: Soft, nontender, nondistended, normoactive bowel sounds. No palpable organomegaly. MUSCULOSKELETAL: No joint swelling or deformity. EXTREMITIES: No cyanosis, clubbing, or pedal edema. NEUROLOGICAL: Gross neurological examination did not reveal any focal deficits. SKIN: No rashes. Assessment and plan: -Acute hypoxic respiratory failure: Most probably is admitted to chronic diastolic dysfunction with acute exacerbation patient will be continued on IV Lasix patient has moderate pleural effusion. Predominantly on the right side. -New-onset atrial fibrillation with rapid and regular rate patient is a patient with Eliquis and beta efren with good rate control -Rule out pneumonia -Hypertension patient blood pressure is low normal will discontinue amlodipine -Hyperlipidemia -COPD without any acute exacerbation at this time -Depression Objective - Vital Signs Vital signs: Vital Signs Temp 97.6 F 01/24/21 10:10 Pulse 88 01/24/21 11:52 Resp 18 01/24/21 11:52 BP 117/49 01/24/21 10:10 Pulse Ox 91 L 01/24/21 10:10 Intake & Output 01/23/21 01/24/21 01/24/21 18:59 06:59 18:59 Intake Total 540 240 240 Output Total 500 700 300 Balance 40 -460 -60 Weight 98.9 kg 100 kg Intake: Oral 540 240 240 Output: Urine 500 700 300 Other: Voiding Method Bedpan External Catheter External Catheter # Voids 1 # Bowel Movements 1 - Labs CBC & Chem 7: 01/24/21 05:20 01/24/21 05:20 Labs: Abnormal Lab Results - Last 24 Hours (Table) 01/24/21 01/24/21 Range/Units 05:20 05:20 MCHC 30.9 L (31.0-37.0) g/dL RDW 15.8 H (11.5-15.5) % Lymphocytes # 0.7 L (1.0-4.8) k/uL Chloride 96 L (98-107) mmol/L Carbon Dioxide 38 H (22-30) mmol/L BUN 18 H (7-17) mg/dL Glucose 116 H (74-99) mg/dL
[2021-01-24] MEDS: FUROSEMIDE 10 MG/ML 2 ML VIAL IV SCH ×2 (12:19→19:49)
[2021-01-24] MEDS: APIXABAN 5 MG TAB PO SCH ×2 (12:19→19:49)
[2021-01-24] MEDS: ALPRAZolam 0.25 MG TAB PO PRN (19:56)
[2021-01-25] MEDS: IPRATROPIUM-ALBUTEROL 3 ML NEB INHALATION SCH ×4 (07:26→19:31)
[2021-01-25] MEDS: SYMBICORT 160-4.5 MCG INHALER INHALATION SCH ×2 (07:26→19:31)
[2021-01-25 07:58] LABS: African American GFR (CKD) >90 (>60 ml/min/1.73 sqM); Blood Urea Nitrogen 19 mg/dL (7-17); Calcium 9.4 mg/dL (8.4-10.2); Chloride 92 mmol/L (98-107); Glucose 109 mg/dL (74-99); Non-African American GFR(CKD) 81 (>60 ml/min/1.73 sqM); Potassium 5.1 mmol/L (3.5-5.1); Sodium 143 mmol/L (137-145)
[2021-01-25 08:04] LABS: Anion Gap 9 mmol/L
--- NOTE | 2021-01-25 08:10 | XR ---
EXAMINATION TYPE: XR chest 1V portable DATE OF EXAM: 01/25/2021 COMPARISON: 01/21/2021 HISTORY: Shortness of breath TECHNIQUE: Single frontal view of the chest is obtained. FINDINGS: Heart is enlarged. Left lung is clear. Arthropathy shoulders. Right-sided consolidation an d pleural effusion. Hypertrophic and degenerative changes spine. No pneumothorax. Hyperinflation sugg ests COPD. IMPRESSION: A stable right-sided consolidation and small effusion correlate for pneumonia.
[2021-01-25 08:11] LABS: Carbon Dioxide 42 mmol/L (22-30)
[2021-01-25] MEDS: ATORVASTATIN 10 MG TAB PO SCH (08:19)
[2021-01-25] MEDS: APIXABAN 5 MG TAB PO SCH ×2 (08:19→19:54)
[2021-01-25] MEDS: FUROSEMIDE 10 MG/ML 2 ML VIAL IV SCH ×2 (08:20→19:55)
[2021-01-25] MEDS: PARoxetine 10 MG TAB PO SCH (08:20)
[2021-01-25] MEDS: lisinopriL 20 MG TAB PO SCH ×2 (08:20→19:54)
[2021-01-25] MEDS: MULTIVITAMINS, THERA 1 EACH TAB PO SCH (08:20)
[2021-01-25] MEDS: OXYBUTYNIN 10 MG TAB.ER.24 PO SCH (08:21)
--- NOTE | 2021-01-25 10:36 | P.PN ---
Subjective Progress Note Date: 01/25/21 Up to 80-year-old female with a history of COPD, from 42 years of tobacco use at 1-2 packs a day, and hypertension, who presents to the emergency department, on January 21, complaining of weakness, and shortness of breath. She apparently was brought in by EMS, and when they came to pick her up, to bring her into the hospital, her saturations are in the 70s. She does use oxygen at home, but doesn't use it all the time. The patient also apparently uses Symbicort for her COPD. I asked her whether or not she's never seen a lung doctor, but she is not sure that she has. In addition to the above, she complains of profound weakness, and poor appetite. She also previously was on Lasix, but recently stopped using it. She denied any chest pain or chest discomfort. There is no fever or chills. Her chest x-ray appears to show cardiomegaly, with a large right pleural effusion. An ultrasound was ordered to rule out free-flowing fluid, that might benefit from thoracentesis. She sitting in bed. She is on oxygen at 4 L. Saturations are 94%. Laboratory data includes a white count 8.1, he will been 12.6, hematocrit 41.0, and a normal platelet count. A recent blood gases showed a pO2 47, pCO2 of 60, and a pH is 7.46. She did not use BiPAP last night, but use it the night before. Sodium 139, potassium 4.4, chlorides 91, CO2 41, anion gap 8, BUN 20, with a creatinine 0.68. It appears t hat her baseline bicarbonate concentration is 38, meaning that her baseline PaCO2 is 65, plus or -2 mmHg. Chest x-ray shows what appears to be a moderate right-sided pleural effusion, and some interstitial changes. On today's evaluation of 01/24/2021, the patient is being seen for a follow-up. The patient was seen in consultation yesterday for shortness of breath. The patient was found to be septic exacerbation addition to a component of CHF. She is known to have aortic valve stenosis. Chest x-ray showed a moderate-sized right-sided pleural effusion. Ultrasound of the chest also showed fluid pocket in the right measuring 7.8 cm in size. The patient is a 10 on long-term and to coagulation with Eliquis and Eliquis was placed also on hold. Currently she is on 4 L of oxygen by nasal cannula with a pulse ox of 94%. Her echocardiogram showed moderate LVH, ejection fraction of 55-60%, RV was within normal, there was severe aortic stenosis with a peak gradient of 70 mmHg and mild to moderate mitral stenosis with a mitral valve area of 2.2 cm mild pulmonary hypertension. 01/25/2021, the patient is on 3 L of oxygen by nasal cannula. The patient is diuresing well. Repeat chest x-ray still showing a persistent right-sided pleural effusion. Nevertheless, we elected not to diurese this patient. She has valvular heart disease and we opted to diurese this patient with Lasix. Currently she is receiving Lasix dose of 20 mg IV every 12 hours. She is negative fluid balance of at least 1 L. She was restarted back on her anticoagulation and the patient is currently on Eliquis. She has a normal ejection fraction. She has severe aortic stenosis and moderate mitral stenosis. She also has mild pulmonary hypertension. Blood work from today is still pending in terms of her CBC. BUN is at 19 with a creatinine of 0.7. Objective - Vital Signs Vital signs: Vital Signs Temp 98 F 01/25/21 08:00 Pulse 74 01/25/21 08:00 Resp 16 01/25/21 08:00 BP 126/63 01/25/21 08:00 Pulse Ox 95 01/25/21 08:00 Intake & Output 01/24/21 01/25/21 01/25/21 18:59 06:59 18:59 Intake Total 240 240 Output Total 600 1000 Balance -360 -760 Weight 100 kg Intake: Oral 240 240 Output: Urine 600 1000 Other: Voiding Method External Catheter External Catheter External Catheter # Voids 1 - Exam Mildly tachypnea, sitting up in bed, on 3L nasal O2. HEENT examination is grossly unremarkable. Neck supple. Full range of motion. No adenopathy thyromegaly or neck vein distention. Cardiovascular examination reveals regular rhythm rate. S1-S2 normal. No S3 or S4. 4 /6 systolic murmur is noted. Heart sounds are distant. Heart rate 93 bpm. Lungs reveal bibasilar crackles with decreased breath sounds at the right base. No wheezes or rhonchi. Abdomen soft bowel sounds are heard. No masses or tenderness. Extremities are intact. No cyanosis clubbing or edema. Skin is without rash or lesion. Neurologic examination is brief but nonfocal. - Labs CBC & Chem 7: 01/24/21 05:20 01/25/21 06:14 Labs: Abnormal Lab Results - Last 24 Hours (Table) 01/25/21 Range/Units 06:14 Chloride 92 L (98-107) mmol/L Carbon Dioxide 42 H* (22-30) mmol/L BUN 19 H (7-17) mg/dL Glucose 109 H (74-99) mg/dL Assessment and Plan Plan: 1 Shortness of breath, likely multifactorial, possibly related to underlying COPD exacerbation, but also CHF, with a small- moderate right-sided pleural effusion. 2 History of aortic stenosis, severe 3 mitral valve stenosis, moderate 4 valvular heart disease secondary to above 5 Previous history of heavy tobacco use. 6 History of hypertension. 7 History of hyperlipidemia. 8 History of urinary incontinence. 9 Obesity. Plan: Continue Lasix IV for another 24 hours and switch her to oral as of tomorrow The patient is doing well and the patient is diuresing well for now Continue anticoagulation with Eliquis Monitor renal function Chest x-ray showing a stable right-sided pleural effusion. No need for thoracentesis at this point in time. Oxidation is improved and the patient is currently on 3 L by nasal cannula.
--- NOTE | 2021-01-25 11:23 | P.PN ---
Subjective Progress Note Date: 01/25/21 HISTORY OF PRESENT ILLNESS: This is an 80-year-old female who sees Dr. Braden in the office. She is admitted to the hospital secondary to congestive heart failure, atrial fibrillation, and hypoxia. Patient examined this morning at the bedside. Patient currently denies chest pain or pressure. She denies shortness of breath. Telemetry reveals sinus mechanism. The patient is prescribed Eliquis however this is on hold per pulmonary. Ultrasound of the chest has been completed revealing moderate right-sided pleural effusion. Echocardiogram completed revealed ejection fraction 55-60%, severe aortic stenosis, [id number] mitral stenosis, mild tricuspid regurgitation, mild pulmonary hypertension, and small pleural effusion. 01/25/2021 Patient examined this morning at the bedside. Pulmonary evaluated patient and decided not to perform thoracentesis. She has been resumed on Eliquis. She was started on IV lasix yesterday per pulmonary. The patient denies chest pain or pressure. Telemetry reveals sinus mechanism. Vital signs stable. PHYSICAL EXAM: VITAL SIGNS: Reviewed. GENERAL: Well-developed in no acute distress. NECK: Supple. No JVD or thyromegaly LUNGS: Respirations even and unlabored. Lungs diminished to auscultation bilaterally. HEART: Regular rate and rhythm. S1 and S2 heard. Systolic murmur noted. EXTREMITIES: Normal range of motion. No clubbing or cyanosis. Peripheral pulses intact. No lower extremity edema ASSESSMENT: Shortness of breath Possible COPD exacerbation Moderate right-sided pleural effusion Acute diastolic congestive heart failure, patient received IV lasix x 1 dose Hypertension New onset paroxysmal atrial fibrillation, on anticoagulation with Eliquis, currently maintaining sinus mechanism Severe aortic stenosis PLAN: Continue current cardiac medications Continue IV lasix per pulmonary Continue anticoagulation with Eliquis Outpatient evaluation of aortic stenosis Further recommendations pending patient's course Nurse practitioner note has been reviewed by physician. Signing provider agrees with the documented findings, assessment, and plan of care. Objective - Vital Signs Vital signs: Vital Signs Temp 98 F 01/25/21 08:00 Pulse 74 01/25/21 08:00 Resp 16 01/25/21 08:00 BP 126/63 01/25/21 08:00 Pulse Ox 95 01/25/21 08:00 Intake & Output 01/24/21 01/25/21 01/25/21 18:59 06:59 18:59 Intake Total 240 240 Output Total 600 1000 Balance -360 -760 Weight 100 kg Intake: Oral 240 240 Output: Urine 600 1000 Other: Voiding Method External Catheter External Catheter External Catheter # Voids 1 - Labs CBC & Chem 7: 01/24/21 05:20 01/25/21 06:14 Labs: Abnormal Lab Results - Last 24 Hours (Table) 01/25/21 Range/Units 06:14 Chloride 92 L (98-107) mmol/L Carbon Dioxide 42 H* (22-30) mmol/L BUN 19 H (7-17) mg/dL Glucose 109 H (74-99) mg/dL
[2021-01-25] MEDS: ALPRAZolam 0.25 MG TAB PO PRN (22:35)
--- NOTE | 2021-01-25 23:02 | P.PN ---
Subjective Progress Note Date: 01/25/21 80-year-old female was admitted for acute hypoxic respiratory failure and is being treated for a heart failure it appears to have diastolic dysfunction. Patient apparently has a history of COPD as well patient uses 2 L of oxygen presently on 3 L of oxygen. Patient marko on IV Lasix. Probably discharge t omorrow if her respiratory status improves. 01/25/2021 Patient evaluated resting in bed. Patient will require rehab on discharge, and per the patient she does not want to get up in the chair, and has not increased her activity much. Patient was encouraged to get up out of bed into chairs for meals. She continues on 3L NC. She is currently denying any shortness of breath or cough. She denies any chest pain, chest pressure. She does report feeling weak and fatigued. Eliquis was resumed. Chest xray today shows stable right- consolidation and small effusion correlate for pneumonia. She continues on IV lasix and duonebs. Plan is to transition to oral lasix tomorrow. Labs today: sodium of 143, potassium 5.1, chloride 92, CO2 42. Vital signs are stable, she is in sinus rhythm. ROS Constitutional: Denied any fatigue, fever. Reports weakness and fatigue. Cardio vascular: denied any chest pain, palpitations Gastrointestinal denied any nausea vomiting, diarrhea, abdominal pain. : Denies any dysuria, frequency, or urgency Pulmonary: Denied any shortness of breath cough Neurologic denied any new focal deficits All inpatient medications were reviewed and appropriate changes in these medica tions as dictated in the interval history and assessment and plan. PHYSICAL EXAMINATION: GENERAL: The patient is alert and oriented x3, not in any acute distress. Well developed, well nourished. HEENT: Pupils are round and equally reacting to light. EOMI. No scleral icterus. No conjunctival pallor. Normocephalic, atraumatic. No pharyngeal erythema. No thyromegaly. CARDIOVASCULAR: S1 and S2 present. No murmurs, rubs, or gallops. There is a big systolic murmur in the aortic area. PULMONARY: Chest is clear to auscultation, no wheezing or crackles. ABDOMEN: Soft, nontender, nondistended, normoactive bowel sounds. No palpable organomegaly. MUSCULOSKELETAL: No joint swelling or deformity. EXTREMITIES: No cyanosis, clubbing, mild lower extremity peripheral edema NEUROLOGICAL: Gross neurological examination did not reveal any focal deficits. SKIN: No rashes. Bilateral lower extremity hyperpigmentation Assessment and plan: -Acute hypoxic respiratory failure probably related to heart failure exacerbation due to moderate right stable pleural effusion, on 3L NC -New-onset atrial fibrillation, currently in sinus rhythm, on eliquis -Acute congestive heart failure, diastolic, EF of 55-60%, on IV lasix, will transition to oral tomorrow -Rule out pneumonia, procalcitonin 0.06, no white count, no need for antibiotics, more likely pleural effusion related to heart failure and not pneum onia. -Hypertension, amlodipine was discontinued as pressures were low-normal, monitor -Severe aortic stenosis, outpatient evaluation -Hyperlipidemia -COPD, possible mild exacerbation from fluid overload -Depression -Obesity -Generalized weakness, PT/OT consultation - Subacute rehab on discharge -DVT Prophylaxis: Eliquis -GI Prophylaxis: Pepcid Objective - Vital Signs Vital signs: Vital Signs Temp 98 F 01/25/21 08:00 Pulse 88 01/25/21 11:58 Resp 18 01/25/21 11:58 BP 122/52 01/25/21 11:40 Pulse Ox 95 01/25/21 08:00 Intake & Output 01/24/21 01/25/21 01/25/21 18:59 06:59 18:59 Intake Total 240 240 128 Output Total 600 1000 750 Balance -360 -594 -060 Weight 100 kg Intake: Oral 240 240 128 Output: Urine 600 1000 750 Other: Voiding Method External Catheter External Catheter External Catheter # Voids 1 - Labs CBC & Chem 7: 01/24/21 05:20 01/25/21 06:14 Labs: Abnormal Lab Results - Last 24 Hours (Table) 01/25/21 Range/Units 06:14 Chloride 92 L (98-107) mmol/L Carbon Dioxide 42 H* (22-30) mmol/L BUN 19 H (7-17) mg/dL Glucose 109 H (74-99) mg/dL Assessment and Plan Time with Patient: Greater than 30
[2021-01-26] MEDS: ATORVASTATIN 10 MG TAB PO SCH (08:46)
[2021-01-26] MEDS: lisinopriL 20 MG TAB PO SCH (08:46)
[2021-01-26] MEDS: FUROSEMIDE 10 MG/ML 2 ML VIAL IV SCH (08:46)
[2021-01-26] MEDS: APIXABAN 5 MG TAB PO SCH (08:46)
[2021-01-26] MEDS: MULTIVITAMINS, THERA 1 EACH TAB PO SCH (08:46)
[2021-01-26] MEDS: PARoxetine 10 MG TAB PO SCH (08:47)
[2021-01-26] MEDS: OXYBUTYNIN 10 MG TAB.ER.24 PO SCH (08:47)
[2021-01-26 08:48] LABS: Basophils % (A) 1 %; Eosinophils # (A) 0.2 k/uL (0-0.7); Eosinophils % (A) 2 %; HCT 44.5 % (34.0-46.0); HGB 13.4 gm/dL (11.4-16.0); Hypochromasia Slight; Lymphocytes # (A) 0.7 k/uL (1.0-4.8); Lymphocytes % (A) 10 %; MCH 26.3 pg (25.0-35.0); MCHC 30.1 g/dL (31.0-37.0); MCV 87.5 fL (80.0-100.0); Mean Platelet Volume 8.3; Monocytes # (A) 0.7 k/uL (0-1.0); Monocytes % (A) 10 %; Neutrophils # (A) 5.4 k/uL (1.3-7.7); Neutrophils % (A) 75 %; Platelet Count 219 k/uL (150-450); RBC 5.08 m/uL (3.80-5.40); RDW 15.8 % (11.5-15.5); WBC 7.2 k/uL (3.8-10.6)
[2021-01-26 08:52] VITALS: RESP 16; TEMP 98.5
[2021-01-26 08:54] LABS: African American GFR (CKD) >90 (>60 ml/min/1.73 sqM); Anion Gap 6 mmol/L; Blood Urea Nitrogen 22 mg/dL (7-17); Calcium 9.2 mg/dL (8.4-10.2); Carbon Dioxide 40 mmol/L (22-30); Chloride 93 mmol/L (98-107); Glucose 100 mg/dL (74-99); Non-African American GFR(CKD) 80 (>60 ml/min/1.73 sqM); Sodium 139 mmol/L (137-145)
[2021-01-26 08:56] LABS: Potassium 4.2 mmol/L (3.5-5.1)
[2021-01-26] MEDS ORDERED: FAMOTIDINE 20 MG TAB PO SCH (09:00)
--- NOTE | 2021-01-26 09:06 | XR ---
EXAMINATION TYPE: XR chest 1V portable DATE OF EXAM: 01/26/2021 COMPARISON: 01/25/2021 HISTORY: Shortness of breath TECHNIQUE: Single frontal view of the chest is obtained. FINDINGS: Heart is enlarged. Left lung is clear. Arthropathy shoulders. Right- sided consolidation a nd pleural effusion. Hypertrophic and degenerative changes of the spine. Suggestion of calcified gran uloma right upper quadrant. No pneumothorax. Hyperinflation suggests COPD. IMPRESSION: A stable right-sided consolidation and small effusion correlate for pneumonia.
[2021-01-26] MEDS: IPRATROPIUM-ALBUTEROL 3 ML NEB INHALATION SCH ×3 (09:18→16:21)
[2021-01-26] MEDS: SYMBICORT 160-4.5 MCG INHALER INHALATION SCH (09:18)
--- NOTE | 2021-01-26 10:18 | P.PN ---
Subjective Progress Note Date: 01/26/21 HISTORY OF PRESENT ILLNESS: This is an 80-year-old female who sees Dr. Braden in the office. She is admitted to the hospital secondary to congestive heart failure, atrial fibrillation, and hypoxia. Patient examined this morning at the bedside. Patient currently denies chest pain or pressure. She denies shortness of breath. Telemetry reveals sinus mechanism. The patient is prescribed Eliquis however this is on hold per pulmonary. Ultrasound of the chest has been completed revealing moderate right-sided pleural effusion. Echocardiogram completed revealed ejection fraction 55-60%, severe aortic stenosis, [id number] mitral stenosis, mild tricuspid regurgitation, mild pulmonary hypertension, and small pleural effusion. 01/25/2021 Patient examined this morning at the bedside. Pulmonary evaluated patient and decided not to perform thoracentesis. She has been resumed on Eliquis. She was started on IV lasix yesterday per pulmonary. The patient denies chest pain or pressure. Telemetry reveals sinus mechanism. Vital signs stable. 01/26/2021 Patient examined this morning at the bedside. Patient denies chest pain or pressure. Denies shortness of breath. Chest XR revealed stable right sided consolidation and small effusion; correlate for pneumonia. She remains on IV lasix per pulmonary. BUN 22. Creatinine 0.71. Blood pressure 103/65. Telemetry reveals sinus mechanism with a heart rate in the 70s. PHYSICAL EXAM: VITAL SIGNS: Reviewed. GENERAL: Well-developed in no acute distress. NECK: Supple. No JVD or thyromegaly LUNGS: Respirations even and unlabored. Lungs diminished to auscultation bilaterally. HEART: Regular rate and rhythm. S1 and S2 heard. Systolic murmur noted. EXTREMITIES: Normal range of motion. No clubbing or cyanosis. Peripheral pulses intact. No lower extremity edema ASSESSMENT: Shortness of breath Possible COPD exacerbation Moderate right-sided pleural effusion Acute diastolic congestive heart failure, patient received IV lasix x 1 dose Hypertension New onset paroxysmal atrial fibrillation, on anticoagulation with Eliquis, currently maintaining sinus mechanism Severe aortic stenosis PLAN: Continue current cardiac medications Continue IV lasix per pulmonary Continue anticoagulation with Eliquis Outpatient evaluation of aortic stenosis Further recommendations pending patient's course Nurse practitioner note has been reviewed by physician. Signing provider agrees with the documented findings, assessment, and plan of care. Objective - Vital Signs Vital signs: Vital Signs Temp 98.5 F 01/26/21 08:00 Pulse 76 01/26/21 09:28 Resp 16 01/26/21 08:00 BP 103/65 01/26/21 08:00 Pulse Ox 92 L 01/26/21 08:00 Intake & Output 01/25/21 01/26/21 01/26/21 18:59 06:59 18:59 Intake Total 368 240 236 Output Total 750 1400 Balance -382 -1160 236 Weight 97 kg Intake: Oral 368 240 236 Output: Urine 750 1400 Other: Voiding Method External Catheter External Catheter - Labs CBC & Chem 7: 01/26/21 07:01 01/26/21 07:01 Labs: Abnormal Lab Results - Last 24 Hours (Table) 01/26/21 01/26/21 Range/Units 07:01 07:01 MCHC 30.1 L (31.0-37.0) g/dL RDW 15.8 H (11.5-15.5) % Lymphocytes # 0.7 L (1.0-4.8) k/uL Chloride 93 L (98-107) mmol/L Carbon Dioxide 40 H (22-30) mmol/L BUN 22 H (7-17) mg/dL Glucose 100 H (74-99) mg/dL
--- NOTE | 2021-01-26 10:22 | P.PN ---
Subjective Progress Note Date: 01/26/21 On 01/26/2021 and is seen in follow-up care unit, she is resting comfortably in bed, in no acute distress, currently on 3 L of oxygen pulse ox of 92-95%, breathing comfortably, she remains on IV diuretics with Lasix 20 mg every 12 hours, she is in -1.5 L over the last 24 hours, today's chest x-ray shows stable consolidation and small pleural effusion. Clinically patient has been improving, no evidence of leukocytosis with a, 7.2, hemoglobin is 13.4, sodium is 139, potassium is 4.2, CO2 is 40, renal profile is stable with B1 of 22 creatinine 0.71. No Acute events overnight, will continue current medical treatment, will continue IV diuretics for another 24 hours. Objective - Vital Signs Vital signs: Vital Signs Temp 98.5 F 01/26/21 08:00 Pulse 76 01/26/21 09:28 Resp 16 01/26/21 08:00 BP 103/65 01/26/21 08:00 Pulse Ox 92 L 01/26/21 08:00 Intake & Output 01/25/21 01/26/21 01/26/21 18:59 06:59 18:59 Intake Total 368 240 236 Output Total 750 1400 Balance -382 -1160 236 Weight 97 kg Intake: Oral 368 240 236 Output: Urine 750 1400 Other: Voiding Method External Catheter External Catheter - Exam GENERAL EXAM: Alert, very pleasant, 80-year-old white female patient, 3 L of oxygen pulse ox of 93% comfortable in no apparent distress. HEAD: Normocephalic/atraumatic. EYES: Normal reaction of pupils, equal size. Conjunctiva pink, sclera white. NOSE: Clear with pink turbinates. THROAT: No erythema or exudates. NECK: No masses, no JVD, no thyroid enlargement, no adenopathy. CHEST: No chest wall deformity. Symmetrical expansion. LUNGS: Equal air entry with crackles at bilateral bases CVS: Regular rate and rhythm, normal S1 and S2, no gallops, no murmurs, no rubs ABDOMEN: Soft, nontender. No hepatosplenomegaly, normal bowel sounds, no guarding or rigidity. EXTREMITIES: No clubbing, no edema, no cyanosis, 2+ pulses and upper and lower extremities. MUSCULOSKELETAL: Muscle strength and tone normal. SPINE: No scoliosis or deformity SKIN: No rashes CENTRAL NERVOUS SYSTEM: Alert and oriented -3. No focal deficits, tone is normal in all 4 extremities. PSYCHIATRIC: Alert and oriented -3. Appropriate affect. Intact judgment and insight. - Labs CBC & Chem 7: 01/26/21 07:01 01/26/21 07:01 Labs: Abnormal Lab Results - Last 24 Hours (Table) 01/26/21 01/26/21 Range/Units 07:01 07:01 MCHC 30.1 L (31.0-37.0) g/dL RDW 15.8 H (11.5-15.5) % Lymphocytes # 0.7 L (1.0-4.8) k/uL Chloride 93 L (98-107) mmol/L Carbon Dioxide 40 H (22-30) mmol/L BUN 22 H (7-17) mg/dL Glucose 100 H (74-99) mg/dL Assessment and Plan Plan: 1 Shortness of breath, likely multifactorial, possibly related to underlying COPD exacerbation, but also CHF, with a small- moderate right-sided pleural effusion, 2 History of aortic stenosis, severe 3 mitral valve stenosis, moderate 4 valvular heart disease secondary to above 5 Previous history of heavy tobacco use. 6 History of hypertension. 7 History of hyperlipidemia. 8 History of urinary incontinence. 9 Obesity. Plan: Continue IV diuretics for another 24 hours Patient is improving, she is in negative fluid balance, today's chest x-ray has been reviewed showing stable right basilar density, and small pleural effusion Oxygenation has been stable on 3 L of oxygen We'll consider switching the patient to oral diuretics tomorrow Increase activity as tolerated I performed a history & physical examination of the patient and discussed their management with my nurse practitioner, Kristy Cordova. I reviewed the nurse practitioner's note and agree with the documented findings and plan of care. Lung sounds are positive for min crackles throughout the lung brice. The findings and the impression was discussed with the patient. I attest to the documentation by the nurse practitioner. Time with Patient: Less than 30
--- NOTE | 2021-01-26 14:59 | P.DS ---
Providers Date of admission: 01/21/21 08:48 Attending physician: Yasmany Marinelli MD Consults: 01/21/21 09:26 Consult Physician Urgent Consulting Provider: [facility] Consult Reason/Comments: CHF, new onset A.Fib Do you want consulting provider notified?: Yes 01/23/21 09:38 Consult Physician Routine Consulting Provider: Elvi Enriquez Reason/Comments: Hypoxia/ COPD exacerbation Do you want consulting provider notified?: Yes Primary care physician: Ehsan Segura Hospital Course: Final Diagnosis -Acute hypoxic respiratory failure probably related to heart failure exacerbation due to small- moderate right stable pleural effusion, on 3L NC -New-onset atrial fibrillation, currently in sinus rhythm, on eliquis -Acute congestive heart failure, diastolic, EF of 55-60% -Rule out pneumonia, procalcitonin 0.06, no white count, no need for antibiotics, more likely pleural effusion related to heart failure and not pneumonia. -Hypertension, amlodipine was discontinued as pressures were low-normal, monitor -Severe aortic stenosis, outpatient evaluation -Hyperlipidemia -COPD, possible mild exacerbation from fluid overload -Depression -Obesity -Generalized weakness, PT/OT consultation - Subacute rehab on discharge -DVT Prophylaxis: Eliquis -GI Prophylaxis: Pepcid Discharge Disposition Patient is cleared medically for discharge to rehab today. Repeat BMP in 3 days. She is discharged on eliquis 5 mg po twice a day, Lasix 20 mg po twice a day, lisinopril 20 mg po BID. Discontinued amlodipine as well as home dose of lisinopril. Hospital course This is a pleasant 80-year-old female who was admitted to the hospital for acute hypoxic respiratory failure that was treated with IV Lasix for heart failure that appears to be diastolic dysfunction. Patient has a past history si gnificant for COPD, she wears 2 L nasal cannula at home as needed and at bedtime. Additional past medical history includes hypertension, anxiety, depression, former smoker quit 30 years ago. Imaging this admission includes a chest x-ray which initially showed moderate right pleural effusion with underlying atelectasis and/or consolidation, could represent Interstitial changes, slight pulmonary vascular congestion or atypical pneumonia. Chest x- ray the day of discharge 01/26/2021 shows a stable right-sided consolidation small effusion, correlate for pneumonia. However it is felt the patient is more likely heart failure exacerbation versus pneumonia. Echocardiogram showed an EF 55-60%, moderate concentric left ventricular hypertrophy, severe aortic stenosis, [id number] mitral stenosis, mild pulmonary hypertension. Chest ultrasound was completed on January 23 which showed right-sided pleural effusion 7.8 centimeter alokt patient was marked for possible thoracentesis however pulmonary decided to forego and to diuresis patient with IV Lasix instead. Overall patient is down 20 kg this admission. Procalcitonin this admission was 0.06, which is not suggestive of a bacterial etiology. Patient has not had an elevated white count this admission, relatively stable 200s, hemoglobin stable 12, sodium 138 potassium 3.9, chloride 93, CO2 40, BUN 21, creatinine 0.64. TSH normal 1.460. Patient is well closely by pulmonary and cardiology services this admission. Vital signs are blood pressure 120/70, 98% on room air, she is afebrile. Heart rate has been in the 80s, rate controlled. 01/26/2021 Patient evaluated today resting in bed. She did state that she spent about 3 hours up in the chair today. She has a negative fluid balance of about 1.5 L in the last 24 hours. She currently denies any chest pain, chest pressure, palpitations. She denies any n/v/d. Focal neurological exam is negative. Lungs show improving aeration, there are some faint rales right lung base. Abdomen is soft and non-tender, positive bowel sounds. Labs are stable today, vital signs are stable. Patient is cleared from cardiology and pulmonary services for discharge to rehab. Patient will transition to oral Lasix twice a day. Follow- up labs in 2-3 days. Please see medication reconciliation for list of current medications. Thank you for allowing us participate in the care of this patient. Patient Condition at Discharge: Stable Plan - Discharge Summary Discharge Rx Participant: No New Discharge Prescriptions: New Famotidine [Pepcid] 20 mg PO BID #0 tab Ipratropium-Albuterol Nebulize [Duoneb 0.5 mg-3 mg/3 ml Soln] 3 ml INHALATION RT-Q6H PRN ml PRN Reason: Shortness Of Breath Or Wheezing Apixaban [Eliquis] 5 mg PO BID tab Furosemide [Lasix] 20 mg PO BID #60 tab Continue PARoxetine HCL 30 mg PO DAILY Simvastatin [Zocor] 20 mg PO DAILY Aspirin EC [Ecotrin Low Dose] 81 mg PO DAILY Multivitamins, Thera [Multivitamin (formulary)] 1 tab PO DAILY Budesonide/Formoterol Fumarate [Symbicort 160-4.5 Mcg Inhaler] 2 puff INHALATION RT-BID Albuterol Sulfate [Ventolin HFA] 2 puff INHALATION RT-QID PRN PRN Reason: Shortness Of Breath ALPRAZolam [Xanax] 0.25 mg PO DAILY PRN #3 tab PRN Reason: Anxiety Tolterodine Tartrate [Detrol LA] 4 mg PO DAILY Discontinued amLODIPine [Norvasc] 5 mg PO DAILY lisinopriL 30 mg PO DAILY Discharge Medication List Aspirin EC [Ecotrin Low Dose] 81 mg PO DAILY 01/19/17 [History] Budesonide/Formoterol Fumarate [Symbicort 160-4.5 Mcg Inhaler] 2 puff INHALATION RT-BID 01/19/17 [History] Multivitamins, Thera [Multivitamin (formulary)] 1 tab PO DAILY 01/19/17 [History] PARoxetine HCL 30 mg PO DAILY 01/19/17 [History] Simvastatin [Zocor] 20 mg PO DAILY 01/19/17 [History] Albuterol Sulfate [Ventolin HFA] 2 puff INHALATION RT-QID PRN 01/21/21 [History] Tolterodine Tartrate [Detrol LA] 4 mg PO DAILY 01/21/21 [History] ALPRAZolam [Xanax] 0.25 mg PO DAILY PRN #3 tab 01/26/21 [Rx] Apixaban [Eliquis] 5 mg PO BID tab 01/26/21 [Rx] Famotidine [Pepcid] 20 mg PO BID #0 tab 01/26/21 [Rx] Furosemide [Lasix] 20 mg PO BID #60 tab 01/26/21 [Rx] Ipratropium-Albuterol Nebulize [Duoneb 0.5 mg-3 mg/3 ml Soln] 3 ml INHALATION RT-Q6H PRN ml 01/26/21 [Rx] Follow up Appointment(s)/Referral(s): Ehsan Segura MD [Primary Care Provider] - 1-2 days Cherie Gabriel MD [STAFF PHYSICIAN] - 1 Week Nate Braden MD [STAFF PHYSICIAN] - 1 Week Ambulatory/Diagnostic Orders: Basic Metabolic Panel [LAB.AMB] Time Frame: 3 Days, Location: None Selected Discharge Disposition: TRANSFER TO SNF/ECF
[2021-01-26 17:00] VITALS: BP 150/76; PULSE 71
== END 2021-01-26 18:18 | DRG 291 ==
LOC: EC 07:07 → 3SCARD 08:48
PROVIDERS: ADMIT Internal Medicine; ATTEND Internal Medicine
PROC: 5A09357 Assistance with Respiratory Ventilation, Less than 24 Consecutive Hours, Continuous Positive Airway Pressure (ICD-10-PCS; principal; 2021-01-22)
DX: I11.0 Hypertensive heart disease with heart failure (principal); I50.31 Acute diastolic (congestive) heart failure; J96.01 Acute respiratory failure with hypoxia; J44.1 Chronic obstructive pulmonary disease with (acute) exacerbation; R53.1 Weakness; E66.9 Obesity, unspecified; Z68.32 Body mass index [BMI] 32.0-32.9, adult; E78.5 Hyperlipidemia, unspecified; F32.A Depression, unspecified; F41.9 Anxiety disorder, unspecified; I08.0 Rheumatic disorders of both mitral and aortic valves; I25.10 Atherosclerotic heart disease of native coronary artery without angina pectoris; I27.20 Pulmonary hypertension, unspecified; I48.0 Paroxysmal atrial fibrillation; Z20.822 Contact with and (suspected) exposure to COVID-19; I49.3 Ventricular premature depolarization; R62.7 Adult failure to thrive; R32 Unspecified urinary incontinence; Z79.01 Long term (current) use of anticoagulants; Z79.51 Long term (current) use of inhaled steroids; Z79.82 Long term (current) use of aspirin; Z79.899 Other long term (current) drug therapy; Z87.891 Personal history of nicotine dependence; Z90.710 Acquired absence of both cervix and uterus
CPT/HCPCS: 36415; 36600; 71045; 71046; 76604; 80048; 80053; 81001; 82805; 83605; 83735; 83880; 84145; 84443; 84484; 85025; 85610; 85730; 87635; 93005; 93306; 94640; 94660; 94760; 99285

== ENCOUNTER 2021-03-19 13:32 | Inpatient (IN) | payer MEDICARE ==
[2021-03-19] MEDS ORDERED: SODIUM CHLORIDE 0.9% 1,000 ML IV STA (13:47)
[2021-03-19] MEDS ORDERED: SODIUM CHLORIDE 0.9% 500 ML 500 ML IV ONE (13:47)
[2021-03-19 14:03] LABS: Glucose,Whole Blood 107 mg/dL (75-99)
[2021-03-19 14:11] LABS: Basophils % (A) 0 %; Eosinophils # (A) 0.1 k/uL (0-0.7); Eosinophils % (A) 1 %; HCT 34.5 % (34.0-46.0); Hypochromasia Marked; Lymphocytes # (A) 0.7 k/uL (1.0-4.8); Lymphocytes % (A) 10 %; MCH 28.2 pg (25.0-35.0); MCHC 30.2 g/dL (31.0-37.0); Mean Platelet Volume 7.3; Monocytes # (A) 0.3 k/uL (0-1.0); Monocytes % (A) 5 %; Neutrophils # (A) 6.2 k/uL (1.3-7.7); Neutrophils % (A) 83 %; Platelet Count 247 k/uL (150-450); RBC 3.69 m/uL (3.80-5.40); RDW 15.4 % (11.5-15.5); WBC 7.5 k/uL (3.8-10.6)
[2021-03-19 14:14] LABS: HGB 10.4 gm/dL (11.4-16.0)
[2021-03-19 14:15] LABS: MCV 93.3 fL (80.0-100.0)
[2021-03-19 14:16] LABS: ALT 10 U/L (4-34); AST 20 U/L (14-36); Acetaminophen <10.0 ug/mL; African American GFR (CKD) 85 (>60 ml/min/1.73 sqM); Albumin 3.1 g/dL (3.5-5.0); Alkaline Phosphatase 71 U/L (38-126); Blood Urea Nitrogen 26 mg/dL (7-17); Calcium 9.1 mg/dL (8.4-10.2); Chloride 91 mmol/L (98-107); Glucose 112 mg/dL (74-99); INR 1.1 (<1.2); Non-African American GFR(CKD) 74 (>60 ml/min/1.73 sqM); Prothrombin Time 11.3 sec (9.0-12.0); Sodium 139 mmol/L (137-145); Total Bilirubin 0.4 mg/dL (0.2-1.3); Total Protein 6.5 g/dL (6.3-8.2)
[2021-03-19 14:17] LABS: Partial Thromboplastin Time 26.2 sec (22.0-30.0)
[2021-03-19 14:22] LABS: Anion Gap 4 mmol/L
[2021-03-19 14:37] LABS: Carbon Dioxide 44 mmol/L (22-30)
[2021-03-19 14:50] LABS: Appearance,Urine Clear (Clear); Bilirubin,Urine Negative (Negative); Blood,Urine Negative (Negative); Color,Urine Yellow; Glucose,Urine (UA) Negative (Negative); Ketones,Urine Negative (Negative); Leukocyte Esterase,Urine Negative (Negative); Nitrite,Urine Negative (Negative); PH, Urine 5.5 (5.0-8.0); Protein,Urine Negative (Negative); Urobilinogen,Urine <2.0 mg/dL (<2.0)
--- NOTE | 2021-03-19 15:06 | CT ---
EXAMINATION TYPE: CT brain wo con DATE OF EXAM: 03/19/2021 COMPARISON: None HISTORY: Altered mental status CT DLP: 1129.4 mGycm Automated exposure control for dose reduction was used. Images obtained of the brain without contrast. There is patchy hypodensity in the periventricular white matter. There is no mass effect or midline s hift. There is no sign of intracranial hemorrhage. Ventricles have fairly normal size. The calvarium is intact. Skull base is intact. IMPRESSION: Cerebral atrophy and extensive white matter changes probably due to chronic small vessel ischemia. No hemorrhage.
--- NOTE | 2021-03-19 15:08 | XR ---
EXAMINATION TYPE: XR chest 2V DATE OF EXAM: 03/19/2021 COMPARISON: 01/26/2021 HISTORY: Altered mental status TECHNIQUE: 2 views FINDINGS: There is blunting right costophrenic angle. There is mild pulmonary congestion. Heart appea rs enlarged. There are chest leads. The bony thorax appears intact. IMPRESSION: Mild congestive heart failure with a moderate size right pleural effusion. There is proba muna right lower lobe infiltrate. Chest appears worse than last exam. Pulmonary congestion slightly in creased.
[2021-03-19 15:26] LABS: Amphetamine Screen,Urine Not Detected (NotDetected); Barbiturate Screen,Urine Not Detected (NotDetected); Benzodiazepines Screen,Urine Detected (NotDetected); Cocaine Screen,Urine Not Detected (NotDetected); Methadone Screen, Urine Not Detected (NotDetected); Opiate Screen,Urine Not Detected (NotDetected); Oxycodone Screen, Urine Not Detected (NotDetected); Phencyclidine Screen,Urine Not Detected (NotDetected); Tricyclic Antidepressant,Urine Not Detected (NotDetected); Urn Cannabinoid Scrn Not Detected (NotDetected)
--- NOTE | 2021-03-19 15:31 | ED ---
Weakness HPI - General Chief complaint: Weakness Stated complaint: AMS Time Seen by Provider: 03/19/21 13:37 Source: patient, EMS, RN notes reviewed, old records reviewed Mode of arrival: EMS Limitations: physical limitation - History of Present Illness Initial comments: 80-year-old female her evaluation for altered mental status weakness found by family to be less responsive than usual. She had total bottles scattered about throat her house. Reports of any trauma or any fevers chills or sweats however she paranasal been eating and drinking as much as usual. Not as responsive as usual. Noted have tremors about the chest and hands today. No other current complaints most information gathered by paramedics MD Complaint: generalized weakness - Related Data Home Medications Medication Instructions Recorded Confirmed Aspirin EC [Ecotrin Low Dose] 81 mg PO DAILY 01/19/17 03/19/21 Multivitamins, Thera [Multivitamin 1 tab PO DAILY 01/19/17 03/19/21 (formulary)] PARoxetine HCL 30 mg PO DAILY 01/19/17 03/19/21 Tolterodine Tartrate [Detrol LA] 4 mg PO DAILY 01/21/21 03/19/21 Atorvastatin [Lipitor] 10 mg PO DAILY 03/19/21 03/19/21 Verapamil HCl [Verapamil ER] 120 mg PO DAILY 03/19/21 03/19/21 lisinopriL 30 mg PO DAILY 03/19/21 03/19/21 Previous Rx's Medication Instructions Recorded ALPRAZolam [Xanax] 0.25 mg PO DAILY PRN #3 tab 01/26/21 Apixaban [Eliquis] 5 mg PO BID tab 01/26/21 Furosemide [Lasix] 20 mg PO BID #60 tab 01/26/21 Allergies Allergy/AdvReac Type Severity Reaction Status Date / Time aspirin AdvReac Nausea Verified 03/19/21 13:56 Review of Systems ROS Statement: Those systems with pertinent positive or pertinent negative responses have been documented in the HPI. ROS Other: All systems not noted in ROS Statement are negative. Limitations: ROS unobtainable due to patients medical condition Past Medical History Past Medical History: COPD, Hypertension History of Any Multi-Drug Resistant Organisms: None Reported Past Surgical History: Adenoidectomy, Appendectomy, Section, H ysterectomy, Tonsillectomy Past Anesthesia/Blood Transfusion Reactions: No Reported Reaction Past Psychological History: Anxiety, Depression Smoking Status: Former smoker Past Alcohol Use History: None Reported Past Drug Use History: None Reported - Past Family History Mother Family Medical History: Cancer General Exam - General Exam Comments Initial Comments: Is a well-developed well-nourished awake alert but slow to respond female she is not sure why she is here but she does nor she has. Limitations: physical limitation General appearance: alert, in no apparent distress Head exam: Present: atraumatic, normocephalic, normal inspection Eye exam: Present: normal appearance, PERRL, EOMI. Absent: scleral icterus, conjunctival injection, periorbital swelling ENT exam: Present: mucous membranes dry Neck exam: Present: normal inspection, full ROM, other (No stridor JVD or bruits). Absent: tenderness, meningismus, lymphadenopathy Respiratory exam: Present: decreased breath sounds. Absent: respiratory distress, wheezes, rales, rhonchi, stridor Cardiovascular Exam: Present: tachycardia, irregular rhythm. Absent: systolic murmur, diastolic murmur, rubs, gallop, clicks GI/Abdominal exam: Present: soft, normal bowel sounds. Absent: distended, tenderness, guarding, rebound, rigid Extremities exam: Present: normal inspection, full ROM, normal capillary refill. Absent: tenderness, pedal edema, joint swelling, calf tenderness Back exam: Present: normal inspection Neurological exam: Present: alert, oriented X3, CN II-XII intact Psychiatric exam: Present: normal affect, normal mood Skin exam: Present: warm, dry, intact, normal color. Absent: rash Course Vital Signs 03/19/21 03/19/21 03/19/21 13:44 14:17 15:00 Temperature 97.9 F Pulse Rate 121 H 96 90 Respiratory 34 H 26 H 24 Rate Blood Pressure 118/85 134/101 144/101 O2 Sat by Pulse 65 L 93 L 95 Oximetry - Reevaluation(s) Reevaluation #1: 03/19/21 15:35 Visual pulse ox read 65% after application correctly with the usual amount of oxygen the patient uses it was in the high 90s. 03/19/21 15:36 Medical Decision Making - Medical Decision Making Reevaluation of the patient reveals improvement in her heart rate she does have evidence pneumonia she is more alert I did discuss this with her and her daughter. Patient will be admitted I did discuss case with Dr. Brasher - Lab Data Result diagrams: 03/19/21 13:58 03/19/21 13:58 Lab Results 03/19/21 03/19/21 03/19/21 Range/Units 13:58 13:58 13:58 WBC 7.5 (3.8-10.6) k/uL RBC 3.69 L (3.80-5.40) m/uL Hgb 10.4 L D (11.4-16.0) gm/dL Hct 34.5 (34.0-46.0) % MCV 93.3 D (80.0-100.0) fL MCH 28.2 (25.0-35.0) pg MCHC 30.2 L (31.0-37.0) g/dL RDW 15.4 (11.5-15.5) % Plt Count 247 (150-450) k/uL MPV 7.3 Neutrophils % 83 % Lymphocytes % 10 % Monocytes % 5 % Eosinophils % 1 % Basophils % 0 % Neutrophils # 6.2 (1.3-7.7) k/uL Lymphocytes # 0.7 L (1.0-4.8) k/uL Monocytes # 0.3 (0-1.0) k/uL Eosinophils # 0.1 (0-0.7) k/uL Basophils # 0.0 (0-0.2) k/uL Hypochromasia Marked PT 11.3 (9.0-12.0) sec INR 1.1 (<1.2) APTT 26.2 (22.0-30.0) sec Sodium 139 (137-145) mmol/L Potassium 4.0 (3.5-5.1) mmol/L Chloride 91 L (98-107) mmol/L Carbon Dioxide 44 H* (22-30) mmol/L Anion Gap 4 mmol/L BUN 26 H (7-17) mg/dL Creatinine 0.76 (0.52-1.04) mg/dL Est GFR (CKD-EPI)AfAm 85 (>60 ml/min/1.73 sqM) Est GFR (CKD-EPI)NonAf 74 (>60 ml/min/1.73 sqM) Glucose 112 H (74-99) mg/dL POC Glucose (mg/dL) (75-99) mg/dL POC Glu Bench Worker Helper ID Calcium 9.1 (8.4-10.2) mg/dL Total Bilirubin 0.4 (0.2-1.3) mg/dL AST 20 (14-36) U/L ALT 10 (4-34) U/L Alkaline Phosphatase 71 (38-126) U/L Ammonia (<30) umol/L Troponin I (0.000-0.034) ng/mL NT-Pro-B Natriuret Pep pg/mL Total Protein 6.5 (6.3-8.2) g/dL Albumin 3.1 L (3.5-5.0) g/dL Urine Color Urine Appearance (Clear) Urine pH (5.0-8.0) Ur Specific [place] (1.001-1.035) Urine Protein (Negative) Urine Glucose (UA) (Negative) Urine Ketones (Negative) Urine Blood (Negative) Urine Nitrite (Negative) Urine Bilirubin (Negative) Urine Urobilinogen (<2.0) mg/dL Ur Leukocyte Esterase (Negative) Urine Opiates Screen (NotDetected) Ur Oxycodone Screen (NotDetected) Urine Methadone Screen (NotDetected) Ur Propoxyphene Screen (NotDetected) Acetaminophen <10.0 ug/mL Ur Barbiturates Screen (NotDetected) U Tricyclic Antidepress (NotDetected) Ur Phencyclidine Scrn (NotDetected) Ur Amphetamines Screen (NotDetected) U Methamphetamines Scrn (NotDetected) U Benzodiazepines Scrn (NotDetected) Urine Cocaine Screen (NotDetected) U Marijuana (THC) Screen (NotDetected) Coronavirus (PCR) (Not Detectd) 03/19/21 03/19/21 03/19/21 Range/Units 13:58 13:58 13:59 WBC (3.8-10.6) k/uL RBC (3.80-5.40) m/uL Hgb (11.4-16.0) gm/dL Hct (34.0-46.0) % MCV (80.0-100.0) fL MCH (25.0-35.0) pg MCHC (31.0-37.0) g/dL RDW (11.5-15.5) % Plt Count (150-450) k/uL MPV Neutrophils % % Lymphocytes % % Monocytes % % Eosinophils % % Basophils % % Neutrophils # (1.3-7.7) k/uL Lymphocytes # (1.0-4.8) k/uL Monocytes # (0-1.0) k/uL Eosinophils # (0-0.7) k/uL Basophils # (0-0.2) k/uL Hypochromasia PT (9.0-12.0) sec INR (<1.2) APTT (22.0-30.0) sec Sodium (137-145) mmol/L Potassium (3.5-5.1) mmol/L Chloride (98-107) mmol/L Carbon Dioxide (22-30) mmol/L Anion Gap mmol/L BUN (7-17) mg/dL Creatinine (0.52-1.04) mg/dL Est GFR (CKD-EPI)AfAm (>60 ml/min/1.73 sqM) Est GFR (CKD-EPI)NonAf (>60 ml/min/1.73 sqM) Glucose (74-99) mg/dL POC Glucose (mg/dL) (75-99) mg/dL POC Glu Bench Worker Helper ID Calcium (8.4-10.2) mg/dL Total Bilirubin (0.2-1.3) mg/dL AST (14-36) U/L ALT (4-34) U/L Alkaline Phosphatase (38-126) U/L Ammonia <9 (<30) umol/L Troponin I <0.012 (0.000-0.034) ng/mL NT-Pro-B Natriuret Pep 1740 pg/mL Total Protein (6.3-8.2) g/dL Albumin (3.5-5.0) g/dL Urine Color Urine Appearance (Clear) Urine pH (5.0-8.0) Ur Specific [place] (1.001-1.035) Urine Protein (Negative) Urine Glucose (UA) (Negative) Urine Ketones (Negative) Urine Blood (Negative) Urine Nitrite (Negative) Urine Bilirubin (Negative) Urine Urobilinogen (<2.0) mg/dL Ur Leukocyte Esterase (Negative) Urine Opiates Screen (NotDetected) Ur Oxycodone Screen (NotDetected) Urine Methadone Screen (NotDetected) Ur Propoxyphene Screen (NotDetected) Acetaminophen ug/mL Ur Barbiturates Screen (NotDetected) U Tricyclic Antidepress (NotDetected) Ur Phencyclidine Scrn (NotDetected) Ur Amphetamines Screen (NotDetected) U Methamphetamines Scrn (NotDetected) U Benzodiazepines Scrn (NotDetected) Urine Cocaine Screen (NotDetected) U Marijuana (THC) Screen (NotDetected) Coronavirus (PCR) (Not Detectd) 03/19/21 03/19/21 03/19/21 Range/Units 14:00 14:00 14:13 WBC (3.8-10.6) k/uL RBC (3.80-5.40) m/uL Hgb (11.4-16.0) gm/dL Hct (34.0-46.0) % MCV (80.0-100.0) fL MCH (25.0-35.0) pg MCHC (31.0-37.0) g/dL RDW (11.5-15.5) % Plt Count (150-450) k/uL MPV Neutrophils % % Lymphocytes % % Monocytes % % Eosinophils % % Basophils % % Neutrophils # (1.3-7.7) k/uL Lymphocytes # (1.0-4.8) k/uL Monocytes # (0-1.0) k/uL Eosinophils # (0-0.7) k/uL Basophils # (0-0.2) k/uL Hypochromasia PT (9.0-12.0) sec INR (<1.2) APTT (22.0-30.0) sec Sodium (137-145) mmol/L Potassium (3.5-5.1) mmol/L Chloride (98-107) mmol/L Carbon Dioxide (22-30) mmol/L Anion Gap mmol/L BUN (7-17) mg/dL Creatinine (0.52-1.04) mg/dL Est GFR (CKD-EPI)AfAm (>60 ml/min/1.73 sqM) Est GFR (CKD-EPI)NonAf (>60 ml/min/1.73 sqM) Glucose (74-99) mg/dL POC Glucose (mg/dL) 107 H (75-99) mg/dL POC Glu Bench Worker Helper ID Duc Peterson Calcium (8.4-10.2) mg/dL Total Bilirubin (0.2-1.3) mg/dL AST (14-36) U/L ALT (4-34) U/L Alkaline Phosphatase (38-126) U/L Ammonia (<30) umol/L Troponin I (0.000-0.034) ng/mL NT-Pro-B Natriuret Pep pg/mL Total Protein (6.3-8.2) g/dL Albumin (3.5-5.0) g/dL Urine Color Yellow Urine Appearance Clear (Clear) Urine pH 5.5 (5.0-8.0) Ur Specific [place] 1.020 (1.001-1.035) Urine Protein Negative (Negative) Urine Glucose (UA) Negative (Negative) Urine Ketones Negative (Negative) Urine Blood Negative (Negative) Urine Nitrite Negative (Negative) Urine Bilirubin Negative (Negative) Urine Urobilinogen <2.0 (<2.0) mg/dL Ur Leukocyte Esterase Negative (Negative) Urine Opiates Screen Not Detected (NotDetected) Ur Oxycodone Screen Not Detected (NotDetected) Urine Methadone Screen Not Detected (NotDetected) Ur Propoxyphene Screen Not Detected (NotDetected) Acetaminophen ug/mL Ur Barbiturates Screen Not Detected (NotDetected) U Tricyclic Antidepress Not Detected (NotDetected) Ur Phencyclidine Scrn Not Detected (NotDetected) Ur Amphetamines Screen Not Detected (NotDetected) U Methamphetamines Scrn Not Detected (NotDetected) U Benzodiazepines Scrn Detected H (NotDetected) Urine Cocaine Screen Not Detected (NotDetected) U Marijuana (THC) Screen Not Detected (NotDetected) Coronavirus (PCR) Not Detected (Not Detectd) - Radiology Data Radiology results: report reviewed (Imaging reviewed evidence of right lower lobe infiltrate as well as), image reviewed Disposition Clinical Impression: Right lower lobe pneumonia, Altered mental status, Dehydration, Rapid atrial fibrillation Disposition: ADMITTED IP TO THIS [facility] Condition: Fair Referrals: Ehsan Segura MD [Primary Care Provider] - 1-2 days
[2021-03-19] MEDS ORDERED: cefTRIAXone IN SWFI 1,000 MG/10 ML SYRINGE IVP STA (15:56)
[2021-03-19] MEDS ORDERED: PNEUMONIA PROTOCOL UTILIZED 1 EACH MISC PO PRN (18:01)
[2021-03-19] MEDS ORDERED: AZITHROMYCIN 500 MG in SODIUM CHLORIDE 0.9% 250 ML IVPB STA (18:05)
[2021-03-19] MEDS: SODIUM CHLORIDE 0.9% 1,000 ML IV SCH (19:35)
[2021-03-19] MEDS: APIXABAN 5 MG TAB PO SCH (20:46)
[2021-03-19] MEDS: FUROSEMIDE 20 MG TAB PO SCH (20:46)
[2021-03-19] MEDS: ALPRAZolam 0.25 MG TAB PO PRN (20:46)
[2021-03-19] MEDS: BISOPROLOL 5 MG TAB PO SCH (22:12)
[2021-03-20] MEDS ORDERED: PIPERACILLIN-TAZOBACTAM 3.375 GM in SODIUM CHLORIDE 0.9% 100 ML IVPB SCH ×2
[2021-03-20 04:32] LABS: Glucose,Whole Blood 126 mg/dL (75-99)
--- NOTE | 2021-03-20 04:55 | XR ---
EXAMINATION TYPE: XR chest 1V portable DATE OF EXAM: 03/20/2021 COMPARISON: Yesterday HISTORY: Short of breath TECHNIQUE: FINDINGS: Heart appears enlarged. There is large right pleural effusion. Left lung is fairly clear. T here is no heart failure. There are chest leads. IMPRESSION: Large right pleural effusion is increased compared to yesterday. No obvious heart failure seen.
[2021-03-20 04:58] LABS: VBG PH 7.22 (7.31-7.41)
[2021-03-20] MEDS ORDERED: FUROSEMIDE 10 MG/ML 4 ML VIAL IV STA (05:08)
[2021-03-20] MEDS: ASPIRIN 81 MG PO SCH (09:30)
[2021-03-20] MEDS: ATORVASTATIN 10 MG TAB PO SCH (09:30)
[2021-03-20] MEDS: APIXABAN 5 MG TAB PO SCH ×2 (09:30→21:24)
[2021-03-20] MEDS: AZITHROMYCIN 500 MG TAB PO SCH (09:31)
[2021-03-20] MEDS: VERAPAMIL SR 120 MG TABLET.ER PO SCH (09:31)
[2021-03-20] MEDS: MULTIVITAMINS, THERA 1 EACH TAB PO SCH (09:31)
[2021-03-20] MEDS: OXYBUTYNIN 10 MG TAB.ER.24 PO SCH (09:31)
[2021-03-20] MEDS: PARoxetine 10 MG TAB PO SCH (09:31)
[2021-03-20] MEDS: lisinopriL 10 MG TAB PO SCH (09:31)
[2021-03-20] MEDS: BISOPROLOL 5 MG TAB PO SCH (09:31)
[2021-03-20] MEDS: FUROSEMIDE 20 MG TAB PO SCH ×2 (09:31→17:26)
[2021-03-20 10:51] LABS: Basophils % (A) 0 %; Eosinophils # (A) 0.1 k/uL (0-0.7); Eosinophils % (A) 1 %; HCT 33.6 % (34.0-46.0); HGB 10.2 gm/dL (11.4-16.0); Hypochromasia Marked; Lymphocytes # (A) 0.7 k/uL (1.0-4.8); Lymphocytes % (A) 9 %; MCH 29.2 pg (25.0-35.0); MCHC 30.5 g/dL (31.0-37.0); MCV 95.9 fL (80.0-100.0); Mean Platelet Volume 7.1; Monocytes # (A) 0.4 k/uL (0-1.0); Monocytes % (A) 6 %; Neutrophils # (A) 6.2 k/uL (1.3-7.7); Neutrophils % (A) 83 %; Platelet Count 242 k/uL (150-450); RDW 15.1 % (11.5-15.5); WBC 7.5 k/uL (3.8-10.6)
[2021-03-20 10:55] LABS: C Reactive Protein 5.7 mg/dL (<1.0); Calcium 8.7 mg/dL (8.4-10.2); Potassium 4.2 mmol/L (3.5-5.1)
[2021-03-20] MEDS: SODIUM CHLORIDE 0.9% 1,000 ML IV SCH ×2 (11:35→18:39)
--- NOTE | 2021-03-20 13:53 | P.CRDCN ---
History of Present Illness Consult date: 03/20/21 History of present illness: Patient is an 80-year-old female with a known history of nonobstructive coronary artery disease atrial fibrillation and congestive heart failure severe aortic stenosis mitral valve stenosis hypertension. Patient follows with Dr. Zuñiga in the office. We have been consulted to see the patient for atrial fibrillation with RVR. Patient come into the hospital altered mental status she was found to be in atrial fibrillation with RVR. Patient is on ELiquis and lisinopril. Patient was started on bisoprolol. Will stop that and change her to Toprol 25 mg twice a day. Patient had a echo completed in December 2020 which shows severe aortic stenosis, normal LV function with an ejection fraction of 55-60% mild to moderate mitral valve stenosis and mild tricuspid regurgitation. Patient also underwent a cardiac catheterization in November 2020 which showed nonobstructive coronary artery disease patient is examined today resting comfortably in bed on a BiPAP. She was admitted for right lower lobe pneumonia. She is in no signs of acute distress. Patient is unable to answer answer questions and remains confused. Blood pressure remains well-controlled. will obtain a 2-D echo. Review of Systems At the time of my exam patient is unable to answer questions due to change in mental status. At this time she has no acute complaints and hasn't in no acute distress REVIEW OF SYSTEMS At the time of my exam: CONSTITUTIONAL: Denies fever or chills. EYES: Negative for vision changes ENT: Negative for hearing loss CARDIOVASCULAR: Denies chest pain, shortness of breath, diaphoresis, orthopnea, PND or palpitations. VASCULAR: Denies edema RESPIRATORY: Denies cough. GASTROINTESTINAL: Denies abdominal pain, diarrhea, constipation, nausea or vomiting. MUSCULOSKELETAL: Denies myalgias. NEUROLOGIC: Denies numbness, tingling, headache or weakness. ENDOCRINE: Denies fatigue, weight change, polydipsia or polyurina. GENITOURINARY: Denies burning, hematuria or urgency with micturation. HEMATOLOGIC: Denies history of anemia or bleeding. DERMATOLOGY: Denies rash or skin sores PSYCH: Negative for depression or hallucinations. Past Medical History Past Medical History: COPD, Hypertension History of Any Multi-Drug Resistant Organisms: None Reported Past Surgical History: Adenoidectomy, Appendectomy, Section, Hysterectomy, Tonsillectomy Past Anesthesia/Blood Transfusion Reactions: No Reported Reaction Past Psychological History: Anxiety, Depression Smoking Status: Former smoker Past Alcohol Use History: None Reported Past Drug Use History: None Reported - Past Family History Mother Family Medical History: Cancer Medications and Allergies Home Medications Medication Instructions Recorded Confirmed Type Aspirin EC [Ecotrin Low Dose] 81 mg PO DAILY 01/19/17 03/19/21 History Multivitamins, Thera [Multivitamin 1 tab PO DAILY 01/19/17 03/19/21 History (formulary)] PARoxetine HCL 30 mg PO DAILY 01/19/17 03/19/21 History Tolterodine Tartrate [Detrol LA] 4 mg PO DAILY 01/21/21 03/19/21 History ALPRAZolam [Xanax] 0.25 mg PO DAILY PRN #3 tab 01/26/21 03/19/21 Rx Apixaban [Eliquis] 5 mg PO BID tab 01/26/21 03/19/21 Rx Furosemide [Lasix] 20 mg PO BID #60 tab 01/26/21 03/19/21 Rx Atorvastatin [Lipitor] 10 mg PO DAILY 03/19/21 03/19/21 History Verapamil HCl [Verapamil ER] 120 mg PO DAILY 03/19/21 03/19/21 History lisinopriL 30 mg PO DAILY 03/19/21 03/19/21 History Allergies Allergy/AdvReac Type Severity Reaction Status Date / Time aspirin AdvReac Nausea Verified 03/19/21 13:56 Physical Exam Vitals: Vital Signs Temp Pulse Pulse Resp BP BP Pulse Ox 03/20/21 13:31 74 22 03/20/21 12:00 74 22 132/69 98 03/20/21 08:00 97.9 F 82 24 99/61 98 03/20/21 04:00 97.8 F 101 H 19 116/75 90 L 03/20/21 01:08 107 H 19 03/20/21 00:00 98.5 F 107 H 19 120/78 96 03/19/21 20:00 113 H 20 03/19/21 18:13 98.1 F 113 H 20 131/65 96 03/19/21 15:00 90 24 144/101 95 03/19/21 14:17 96 26 H 134/101 93 L 03/19/21 13:44 97.9 F 121 H 34 H 118/85 65 L Intake and Output 03/19/21 03/20/21 03/20/21 22:59 06:59 14:59 Intake Total 120 Output Total 0 Balance 120 Intake: Intake, IV Titration 120 Amount Sodium Chloride 0.9% 1, 120 000 ml @ 130 mls/hr IV . Q7H42M STA Rx#:[id number] Oral 0 Output: Urine 0 Other: Voiding Method Diaper Diaper Diaper External Catheter External Catheter External Catheter # Voids 600 Weight 98.883 kg PHYSICAL EXAMINATION Blood pressure reviewed CONSTITUTIONAL: No apparent distress. HEENT: Head is normocephalic. Pupils are equal, round. Sclerae anicteric. Mucous membranes of the mouth are moist. NECK: No JVD. No carotid bruit. RESPIRATORY: Lungs are clear to auscultation. No chest wall tenderness is noted on palpation or with deep breathing. CARDIAC: Irregular rate and rhythm. S1, S2 heard. no gallops or rub. Ejection systolic murmur ABDOMEN: Soft, nontender. EXTREMITIES: 2+ peripheral pulses, no lower extremity edema and no calf tenderness. NEUROLOGIC EXAMINATION: Patient is awake, alert and pleasantly confused and unable to answer questions INTEGUMENTARY: Warm, absent for rashes or sores PSYCH: Orientated to person, place, time, mood appropriate PSYCH: Negative for depression or hallucinations. Results 03/20/21 09:45 03/20/21 09:45 Cardiac Enzymes 03/19/21 03/19/21 Range/Units 13:58 13:58 AST 20 (14-36) U/L Troponin I <0.012 (0.000-0.034) ng/mL Coagulation 03/19/21 Range/Units 13:58 PT 11.3 (9.0-12.0) sec APTT 26.2 (22.0-30.0) sec CBC 03/19/21 03/20/21 Range/Units 13:58 09:45 WBC 7.5 7.5 (3.8-10.6) k/uL RBC 3.69 L 3.50 L (3.80-5.40) m/uL Hgb 10.4 L D 10.2 L (11.4-16.0) gm/dL Hct 34.5 33.6 L (34.0-46.0) % Plt Count 247 242 (150-450) k/uL Comprehensive Metabolic Panel 03/19/21 03/20/21 Range/Units 13:58 09:45 Sodium 139 143 (137-145) mmol/L Potassium 4.0 4.2 (3.5-5.1) mmol/L Chloride 91 L 92 L (98-107) mmol/L Carbon Dioxide 44 H* 41 H* (22-30) mmol/L BUN 26 H 24 H (7-17) mg/dL Creatinine 0.76 0.81 (0.52-1.04) mg/dL Glucose 112 H 98 (74-99) mg/dL Calcium 9.1 8.7 (8.4-10.2) mg/dL AST 20 (14-36) U/L ALT 10 (4-34) U/L Alkaline Phosphatase 71 (38-126) U/L Total Protein 6.5 (6.3-8.2) g/dL Albumin 3.1 L (3.5-5.0) g/dL Current Medications Generic Name Dose Route Start Last Admin Trade Name Freq PRN Reason Stop Dose Admin Alprazolam 0.25 mg 03/19/21 18:03 03/19/21 20:46 Alprazolam 0.25 Mg Tab PO 0.25 mg DAILY PRN Administration Anxiety Apixaban 5 mg 03/19/21 21:00 03/20/21 09:30 Apixaban 5 Mg Tab PO Not Given BID [facility] Protocol Aspirin 81 mg 03/20/21 09:00 03/20/21 09:30 Aspirin 81 Mg PO Not Given DAILY [facility] Atorvastatin Calcium 10 mg 03/20/21 09:00 03/20/21 09:30 Atorvastatin 10 Mg Tab PO Not Given DAILY [facility] Azithromycin 500 mg 03/20/21 09:00 03/20/21 09:31 Azithromycin 500 Mg Tab PO Not Given Q24HR [facility] Bisoprolol Fumarate 5 mg 03/19/21 21:00 03/20/21 09:31 Bisoprolol 5 Mg Tab PO Not Given DAILY [facility] Furosemide 20 mg 03/19/21 19:00 03/20/21 09:31 Furosemide 20 Mg Tab PO Not Given BID@0900,1600 [facility] Sodium Chloride 1,000 mls @ 100 mls/hr 03/19/21 18:15 03/20/21 11:35 Saline 0.9% IV Not Given .Q10H [facility] Ceftriaxone Sodium 2 gm/ 50 mls @ 100 mls/hr 03/20/21 09:00 03/20/21 08:21 Sodium Chloride IVPB 100 mls/hr Q24HR [facility] Administration Lisinopril 30 mg 03/20/21 09:00 03/20/21 09:31 Lisinopril 10 Mg Tab PO Not Given DAILY [facility] Miscellaneous Information 1 each 03/19/21 18:01 Pneumonia Protocol Utilized 1 Each Misc PO ONCE PRN Per Protocol Multivitamins 1 each 03/20/21 09:00 03/20/21 09:31 Multivitamins, Thera 1 Each Tab PO Not Given DAILY [facility] Oxybutynin Chloride 10 mg 03/20/21 09:00 03/20/21 09:31 Oxybutynin 10 Mg Tab.Er.24 PO Not Given DAILY [facility] Paroxetine HCl 30 mg 03/20/21 09:00 03/20/21 09:31 Paroxetine 10 Mg Tab PO Not Given DAILY [facility] Verapamil HCl 120 mg 03/20/21 09:00 03/20/21 09:31 Verapamil Sr 120 Mg Tablet.Er PO Not Given DAILY [facility] Intake and Output 03/19/21 03/20/21 03/20/21 22:59 06:59 14:59 Intake Total 120 Output Total 0 Balance 120 Intake: Intake, IV Titration 120 Amount Sodium Chloride 0.9% 1, 120 000 ml @ 130 mls/hr IV . Q7H42M STA Rx#:[id number] Oral 0 Output: Urine 0 Other: Voiding Method Diaper Diaper Diaper External Catheter External Catheter External Catheter # Voids 600 Weight 98.883 kg 03/20/21 09:45 03/20/21 09:45 Assessment and Plan Assessment: Persistent atrial fibrillation with RVR Altered mental status Hypoxia secondary to Right lower lobe pneumonia requiring BiPAP Severe aortic stenosis Non-rhythmic mitral valve stenosis Congestive heart failure History of hypertension Plan: Discontinue bisoprolol Start start metoprolol 25 mg twice a day Obtain a 2-D echo Continue on Eliquis for anticoagulation Continue telemetry monitoring Continue all other current cardiac medications Further recommendations based on clinical course The above impression and plan of care have been discussed and directed by the signing physician. Beatrice Castillo, nurse practitioner, acting as scribe for signing physician.
--- NOTE | 2021-03-20 14:00 | ECHOF ---
Referral Reason:a-fib MEASUREMENTS -------- HEIGHT: 175.3 cm WEIGHT: 98.9 kg BP: RVIDd: 2.7 cm (< 3.3) IVSd: 1.4 cm (0.6 - 1.1) LVIDd: 3.8 cm (3.9 - 5.3) LVPWd: 1.7 cm (0.6 - 1.1) IVSs: 1.4 cm LVIDs: 2.6 cm LVPWs: 2.0 cm LA Diam: 4.8 cm (2.7 - 3.8) Ao Diam: 2.7 cm (2.0 - 3.7) AV Cusp: 0.6 cm (1.5 - 2.6) MV EXCURSION: 13.536 mm (> 18.000) MV EF SLOPE: 24 mm/s (70 - 150) EPSS: 0.8 cm MV E Lucio: 1.75 m/s MV DecT: 226 ms MV A Lucio: 1.02 m/s MV E/A Ratio: 1.72 AV maxP.87 mmHg AV meanP.39 mmHg FINDINGS -------- Undetermined rhythm. This was a technically adequate study. The left ventricular size is normal. There is moderate concentric left ventricular hypertrophy. O verall left ventricular systolic function is low-normal with, an EF between 50 - 55 %. The right ventricle is normal in size. The left atrium is moderately dilated. The right atrial size is normal. There is severe aortic stenosis present. Peak/mean gradient across the Aortic Valve is 88.87mmHg / 36.39mmHg. The peak and mean MV gradients are 18.59mmHg 5.94mmHg as measured by doppler. Moderate mitral steno sis. Mild tricuspid regurgitation present. Unable to estimate RVSP due to inadequate TR jet spectral dop pler profile. The pulmonic valve was not well visualized. There is no pericardial effusion. CONCLUSIONS -------- 1. The left ventricular size is normal. 2. There is moderate concentric left ventricular hypertrophy. 3. Overall left ventricular systolic function is low-normal with, an EF between 50 - 55 %. 4. The right ventricle is normal in size. 5. The left atrium is moderately dilated. 6. The right atrial size is normal. 7. There is severe aortic stenosis present. 8. Peak/mean gradient across the Aortic Valve is 88.87mmHg / 36.39mmHg. 9. The peak and mean MV gradients are 18.59mmHg 5.94mmHg as measured by doppler. 10. Moderate mitral stenosis. 11. Mild tricuspid regurgitation present. 12. Unable to estimate RVSP due to inadequate TR jet spectral doppler profile. 13. The pulmonic valve was not well visualized. 14. There is no pericardial effusion. DRAIN TILER: Janell Miles RDCS
--- NOTE | 2021-03-20 15:28 | P.HPIM ---
History of Present Illness H&P Date: 03/19/21 80-year-old female her evaluation for altered mental status weakness found by family to be less responsive than usual. She had total bottles scattered about throat her house. Reports of any trauma or any fevers chills or sweats however she paranasal been eating and drinking as much as usual. Not as responsive as usual. Noted have tremors about the chest and hands today. 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 HEENT: No recent visual problems or hearing problems. Denied any sore throat. CARDIOVASCULAR: No chest pain, orthopnea, PND, no palpitations, no syncope. PULMONARY: No shortness of breath, no cough, no hemoptysis. GASTROINTESTINAL: No diarrhea, no nausea, no vomiting, no abdominal pain. NEUROLOGICAL: No headaches, no weakness, no numbness. HEMATOLOGICAL: Denies any bleeding or petechiae. GENITOURINARY: Denies any burning micturition, frequency, or urgency. MUSCULOSKELETAL/RHEUMATOLOGICAL: Denies any joint pain, swelling, or any muscle pain. ENDOCRINE: Denies any polyuria or polydipsia. The rest of the 14-point review of systems is negative. Past Medical History Past Medical History: COPD, Hypertension History of Any Multi-Drug Resistant Organisms: None Reported Past Surgical History: Adenoidectomy, Appendectomy, Section, Hysterectomy, Tonsillectomy Past Anesthesia/Blood Transfusion Reactions: No Reported Reaction Past Psychological History: Anxiety, Depression Smoking Status: Former smoker Past Alcohol Use History: None Reported Past Drug Use History: None Reported - Past Family History Mother Family Medical History: Cancer Medications and Allergies Home Medications Medication Instructions Recorded Confirmed Type Aspirin EC [Ecotrin Low Dose] 81 mg PO DAILY 01/19/17 03/19/21 History Multivitamins, Thera [Multivitamin 1 tab PO DAILY 01/19/17 03/19/21 History (formulary)] PARoxetine HCL 30 mg PO DAILY 01/19/17 03/19/21 History Tolterodine Tartrate [Detrol LA] 4 mg PO DAILY 01/21/21 03/19/21 History ALPRAZolam [Xanax] 0.25 mg PO DAILY PRN #3 tab 01/26/21 03/19/21 Rx Apixaban [Eliquis] 5 mg PO BID tab 01/26/21 03/19/21 Rx Furosemide [Lasix] 20 mg PO BID #60 tab 01/26/21 03/19/21 Rx Atorvastatin [Lipitor] 10 mg PO DAILY 03/19/21 03/19/21 History Verapamil HCl [Verapamil ER] 120 mg PO DAILY 03/19/21 03/19/21 History lisinopriL 30 mg PO DAILY 03/19/21 03/19/21 History Allergies Allergy/AdvReac Type Severity Reaction Status Date / Time aspirin AdvReac Nausea Verified 03/19/21 13:56 Physical Exam Vitals: Vital Signs Temp Pulse Resp BP Pulse Ox 03/19/21 15:00 90 24 144/101 95 03/19/21 14:17 96 26 H 134/101 93 L 03/19/21 13:44 97.9 F 121 H 34 H 118/85 65 L Intake and Output 03/19/21 03/19/21 03/19/21 06:59 14:59 22:59 Other: Weight 98.883 kg PHYSICAL EXAMINATION: GENERAL: The patient is alert and oriented x3, not in any acute distress. Well developed, well nourished. HEENT: Pupils are round and equally reacting to light. EOMI. No scleral icterus. No conjunctival pallor. Normocephalic, atraumatic. No pharyngeal erythema. No thyromegaly. CARDIOVASCULAR: S1 and S2 present. No murmurs, rubs, or gallops. PULMONARY: Chest is clear to auscultation, no wheezing or crackles. ABDOMEN: Soft, nontender, nondistended, normoactive bowel sounds. No palpable organomegaly. MUSCULOSKELETAL: No joint swelling or deformity. EXTREMITIES: No cyanosis, clubbing, or pedal edema. NEUROLOGICAL: Gross neurological examination did not reveal any focal deficits. SKIN: No rashes. Results CBC & Chem 7: 03/20/21 09:45 03/20/21 09:45 Labs: Abnormal Lab Results - Last 24 Hours (Table) 03/19/21 03/19/21 03/19/21 Range/Units 13:58 13:58 14:00 RBC 3.69 L (3.80-5.40) m/uL Hgb 10.4 L D (11.4-16.0) gm/dL MCHC 30.2 L (31.0-37.0) g/dL Lymphocytes # 0.7 L (1.0-4.8) k/uL Chloride 91 L (98-107) mmol/L Carbon Dioxide 44 H* (22-30) mmol/L BUN 26 H (7-17) mg/dL Glucose 112 H (74-99) mg/dL POC Glucose (mg/dL) 107 H (75-99) mg/dL Albumin 3.1 L (3.5-5.0) g/dL U Benzodiazepines Scrn (NotDetected) 03/19/21 Range/Units 14:13 RBC (3.80-5.40) m/uL Hgb (11.4-16.0) gm/dL MCHC (31.0-37.0) g/dL Lymphocytes # (1.0-4.8) k/uL Chloride (98-107) mmol/L Carbon Dioxide (22-30) mmol/L BUN (7-17) mg/dL Glucose (74-99) mg/dL POC Glucose (mg/dL) (75-99) mg/dL Albumin (3.5-5.0) g/dL U Benzodiazepines Scrn Detected H (NotDetected) Assessment and Plan Assessment: 1. Altered mental status; possible toxic/metabolic encephalopathy related to pneumonia -Patient is currently more awake and responsive; patient's current baseline is not 2. Right lower lobe pneumonia - Patient has been placed on IV ceftriaxone 1 g daily along with azithromycin 500 mg daily; bronchodilator nebulizer treatments; symptomatic treatment for pneumonia - We will monitor CBC, CRP and pro-calcitonin 3. Atrial fibrillation with RVR; we will start patient on Bisoprolol 5 mg twice a day; patient has been placed on Eliquis 5 mg twice a day for anticoagulation; recommend 2-D echo; consult cardiology for further recommendations 4. Hypertension; continue with lisinopril 30 mg daily; patient has been placed on beta blockers but improved heart rate control 5. Hyperlipidemia; Lipitor 10 mg daily 6. COPD; not in exacerbation; we will continue with home management DVT prophylaxis; SCDs/systemic anticoagulation with Eliquis CODE STATUS; full code
[2021-03-20] MEDS: METOPROLOL TARTRATE 25 MG TAB PO SCH (21:24)
[2021-03-21] MEDS: SODIUM CHLORIDE 0.9% 1,000 ML IV SCH ×2 (06:16→17:25)
[2021-03-21] MEDS: AZITHROMYCIN 500 MG TAB PO SCH (08:18)
[2021-03-21] MEDS: APIXABAN 5 MG TAB PO SCH (08:18)
[2021-03-21] MEDS: MULTIVITAMINS, THERA 1 EACH TAB PO SCH (08:18)
[2021-03-21] MEDS: ATORVASTATIN 10 MG TAB PO SCH (08:19)
[2021-03-21] MEDS: lisinopriL 10 MG TAB PO SCH (08:19)
[2021-03-21] MEDS: METOPROLOL TARTRATE 25 MG TAB PO SCH ×2 (08:19→20:39)
[2021-03-21] MEDS: PARoxetine 10 MG TAB PO SCH (08:19)
[2021-03-21] MEDS: OXYBUTYNIN 10 MG TAB.ER.24 PO SCH (08:19)
[2021-03-21] MEDS: FUROSEMIDE 20 MG TAB PO SCH ×2 (08:19→17:23)
[2021-03-21] MEDS: ASPIRIN 81 MG PO SCH (08:19)
[2021-03-21] MEDS: VERAPAMIL SR 120 MG TABLET.ER PO SCH (08:20)
--- NOTE | 2021-03-21 11:28 | P.PN ---
Subjective Progress Note Date: 03/21/21 HISTORY OF PRESENT ILLNESS: 03/20/2021 Patient is an 80-year-old female with a known history of nonobstructive coronary artery disease atrial fibrillation and congestive heart failure severe aortic stenosis mitral valve stenosis hypertension. Patient follows with Dr. Zuñiga in the office. We have been consulted to see the patient for atrial fibrillation with RVR. Patient come into the hospital altered mental status she was found to be in atrial fibrillation with RVR. Patient is on ELiquis and lisinopril. Patient was started on bisoprolol. Will stop that and change her to Toprol 25 mg twice a day. Patient had a echo completed in December 2020 which shows severe aortic stenosis, normal LV function with an ejection fraction of 55-60% mild to moderate mitral valve stenosis and mild tricuspid regurgitation. Patient also underwent a cardiac catheterization in November 2020 which showed nonobstructive coronary artery disease patient is examined today resting comfortably in bed on a BiPAP. She was admitted for right lower lobe pneumonia. She is in no signs of acute distress. Patient is unable to answer answer questions and remains confused. Blood pressure remains well-controlled. will obtain a 2-D echo. 03/21/2021 Patient examined this morning at the bedside. Patient is currently wearing a Bipap. She reports shortness of breath, although improving. She denies chest pain or pressure. Telemetry reveals atrial fibrillation with controlled ventricular rates. Echocardiogram completed revealing ejection fraction 50-55%, severe aortic stenosis, moderate mitral stenosis, mild tricuspid regurgitation PHYSICAL EXAM: VITAL SIGNS: Reviewed. GENERAL: Well-developed in no acute distress. NECK: Supple. No JVD or thyromegaly LUNGS: Respirations even and unlabored. Lungs diminished bilaterally. HEART: Irregular rate and rhythm. S1 and S2 heard. Systolic murmur noted. EXTREMITIES: Normal range of motion. No clubbing or cyanosis. Peripheral pulses intact. No lower extremity edema ASSESSMENT: Right lower lobe pneumonia Acute hypoxic respiratory failure Paroxysmal atrial fibrillation with RVR, on Eliquis Hypertension Hyperlipidemia Severe aortic stenosis PLAN: Continue current cardiac medications Continue anticoagulation with Eliquis Continue telemetry monitoring Further recommendations pending patient course Patient to follow up outpatient with Dr. Singh Nurse practitioner note has been reviewed by physician. Signing provider agrees with the documented findings, assessment, and plan of care. Objective - Vital Signs Vital signs: Vital Signs Temp 98 F 03/21/21 08:00 Pulse 93 03/21/21 08:00 Resp 20 03/21/21 08:00 BP 109/74 03/21/21 08:00 Pulse Ox 100 03/21/21 08:00 Intake & Output 03/20/21 03/21/21 03/21/21 18:59 06:59 18:59 Intake Total 360 118 Output Total 450 Balance -90 118 Intake: Oral 360 118 Output: Urine 450 Other: Voiding Method Diaper Diaper Diaper External Catheter External Catheter External Catheter # Voids 600 3 - Labs CBC & Chem 7: 03/20/21 09:45 03/20/21 09:45 Labs: Microbiology - Last 24 Hours (Table) 03/19/21 17:25 Blood Culture - Preliminary Blood No Growth after 24 hours 03/19/21 17:40 Blood Culture - Preliminary Blood No Growth after 24 hours
--- NOTE | 2021-03-21 14:28 | US ---
EXAMINATION TYPE: US chest DATE OF EXAM: 03/21/2021 COMPARISON: NONE CLINICAL HISTORY: shortness of breath. TECHNIQUE: Targeted ultrasound of the posterior lower right chest. EXAM MEASUREMENTS: Right Pleural Effusion pocket size: 12.0 cm Right skin surface to fluid distance: 4.0 cm Left Pleural Effusion pocket size: no pleural effusion was seen Right side was marked for possible thoracentesis outside the dept. Pulmonologists are able to review the images in the patient?s EMR. IMPRESSIONS: 1. A large right pleural effusion
[2021-03-21 17:40] LABS: African American GFR (CKD) >90 (>60 ml/min/1.73 sqM); Blood Urea Nitrogen 30 mg/dL (7-17); Chloride 93 mmol/L (98-107); Glucose 103 mg/dL (74-99); Non-African American GFR(CKD) 80 (>60 ml/min/1.73 sqM); Potassium 4.5 mmol/L (3.5-5.1); Sodium 139 mmol/L (137-145)
[2021-03-21 17:48] LABS: Anion Gap 4 mmol/L
[2021-03-21 17:49] LABS: Carbon Dioxide 42 mmol/L (22-30)
--- NOTE | 2021-03-21 17:52 | P.CNPUL ---
History of Present Illness Consult date: 03/21/21 Reason for consult: dyspnea, cough Chief complaint: Dyspnea, altered mental status History of present illness: 80-year-old white female patient with past medical history of congestive heart failure, severe aortic stenosis, mitral valve stenosis, hypertension, chronic atrial fibrillation on Eliquis, coronary artery disease, COPD and patient wears oxygen at home at 3 L, she is a former smoker, who presented to the emergency department on 03/19/2021 for evaluation of altered mental status. Brain CT was completed showing cerebral atrophy and extensive white matter changes likely related to chronic small vessel ischemia no hemorrhage. Patient's pulse ox was only 65% on room air on presentation, she was tachycardic, but she was afebrile, she tested negative for COVID-19, her chest x-ray showed mild congestive heart failure with a moderate-sized right pleural effusion, there was pulmonary congestion that was slightly increased compared to the previous chest x-ray. Her EKG showed A. fib with a rate of 110 BPM. And evidence of anterolateral infarct of undetermined age. Her laboratory analysis showed white blood cell count of 7.5, hemoglobin of 10.4, platelet count of 247, INR was 1.1, sodium is 139, potassium is 4.0, chloride is 91, CO2 is 44, B1 is 26 creatinine 0.76. LFTs were within normal limits, ammonia level was less than 9, troponin was less than 0.012, proBNP was elevated at 1740, urinalysis without sign of infection, urine drug screen showed benzodiazepines, COVID-19 PCR was negative. Patient was placed on BiPAP support with pressures of 14 and 6 and FiO2 is currently at 50%. Venous blood gas was obtained showing pH of 7.22, pCO2 of 114, and bicarbonate concentration of 47 on venous blood gas. She was started on empiric antibiotics with a combination of azithromycin and Rocephin for concern of underlying pneumonia. Cardiology consultation has been requested, and patient was given 1 dose of Lasix, and she is currently on home dose of Lasix to 20 mg twice daily. Today patient is seen on selective care unit, she is awake and alert, she is oriented 3, she denies any fever or chills at home, she does endorse cough, with no phlegm production, no complaints of chest discomfort, she is certainly much more awake and alert, answering simple questions. She will be trialed on nasal cannula Review of Systems All systems: negative Constitutional: Denies chills, Denies fever Eyes: denies blurred vision, denies pain Ears, nose, mouth and throat: Denies headache, Denies sore throat Cardiovascular: Denies chest pain, Denies shortness of breath Respiratory: Reports cough, Reports dyspnea, Reports home oxygen, Reports respiratory infections, Reports wheezing Gastrointestinal: Denies abdominal pain, Denies diarrhea, Denies nausea, Denies vomiting Genitourinary: Denies dysuria, Denies hematuria Musculoskeletal: Denies myalgias Integumentary: Denies pruritus, Denies rash Neurological: Denies numbness, Denies weakness Psychiatric: Denies anxiety, Denies depression Endocrine: Denies fatigue, Denies weight change Past Medical History Past Medical History: COPD, Hypertension History of Any Multi-Drug Resistant Organisms: None Reported Past Surgical History: Adenoidectomy, Appendectomy, Section, Hysterectomy, Tonsillectomy Past Anesthesia/Blood Transfusion Reactions: No Reported Reaction Past Psychological History: Anxiety, Depression Smoking Status: Former smoker Past Alcohol Use History: None Reported Past Drug Use History: None Reported - Past Family History Mother Family Medical History: Cancer Medications and Allergies Home Medications Medication Instructions Recorded Confirmed Type Aspirin EC [Ecotrin Low Dose] 81 mg PO DAILY 01/19/17 03/19/21 History Multivitamins, Thera [Multivitamin 1 tab PO DAILY 01/19/17 03/19/21 History (formulary)] PARoxetine HCL 30 mg PO DAILY 01/19/17 03/19/21 History Tolterodine Tartrate [Detrol LA] 4 mg PO DAILY 01/21/21 03/19/21 History ALPRAZolam [Xanax] 0.25 mg PO DAILY PRN #3 tab 01/26/21 03/19/21 Rx Apixaban [Eliquis] 5 mg PO BID tab 01/26/21 03/19/21 Rx Furosemide [Lasix] 20 mg PO BID #60 tab 01/26/21 03/19/21 Rx Atorvastatin [Lipitor] 10 mg PO DAILY 03/19/21 03/19/21 History Verapamil HCl [Verapamil ER] 120 mg PO DAILY 03/19/21 03/19/21 History lisinopriL 30 mg PO DAILY 03/19/21 03/19/21 History Allergies Allergy/AdvReac Type Severity Reaction Status Date / Time aspirin AdvReac Nausea Verified 03/19/21 13:56 Physical Exam Vitals: Vital Signs Temp Pulse Resp BP Pulse Ox 03/21/21 16:29 97.5 F L 81 22 117/64 97 03/21/21 11:43 98 F 98 24 120/70 100 03/21/21 08:00 98 F 93 20 109/74 100 03/21/21 04:00 98.1 F 88 19 90 L 03/21/21 01:39 75 18 03/20/21 23:17 98.2 F 75 18 123/68 99 03/20/21 20:00 98.0 F 77 15 120/75 100 03/20/21 18:01 90 L Intake and Output 03/21/21 03/21/21 03/21/21 06:59 14:59 22:59 Intake Total 360 118 190 Output Total 450 Balance -90 118 190 Intake: Intake, IV Titration 190 Amount Sodium Chloride 0.9% 1, 140 000 ml @ 100 mls/hr IV . Q10H LUCIA Rx#:[id number] cefTRIAXone 2 gm In 50 Sodium Chloride 0.9% 50 ml @ 100 mls/hr IVPB Q24HR LUCIA Rx#:[id number] Oral 360 118 Output: Urine 450 Other: Voiding Method Diaper Diaper External Catheter External Catheter # Voids 3 GENERAL EXAM: Alert, very pleasant, 80-year-old white female, answering simple questions, currently on BiPAP support with pressures of 14 and 6 and FiO2 of 50%, comfortable in no apparent distress. HEAD: Normocephalic/atraumatic. EYES: Normal reaction of pupils, equal size. Conjunctiva pink, sclera white. NOSE: Clear with pink turbinates. THROAT: No erythema or exudates. NECK: No masses, no JVD, no thyroid enlargement, no adenopathy. CHEST: No chest wall deformity. Symmetrical expansion. LUNGS: Equal air entry with diminished breath sounds at the bases, right greater than left CVS: Irregular rate and rhythm, normal S1 and S2, no gallops, no murmurs, no rubs ABDOMEN: Soft, nontender. No hepatosplenomegaly, normal bowel sounds, no guarding or rigidity. EXTREMITIES: No clubbing, no edema, no cyanosis, 2+ pulses and upper and lower extremities. MUSCULOSKELETAL: Muscle strength and tone normal. SPINE: No scoliosis or deformity SKIN: No rashes CENTRAL NERVOUS SYSTEM: Alert and oriented -3. No focal deficits, tone is n ormal in all 4 extremities. PSYCHIATRIC: Alert and oriented -3. Appropriate affect. Intact judgment and insight. Results - Laboratory Findings CBC and BMP: 03/20/21 09:45 03/20/21 09:45 PT/INR, D-dimer PT 11.3 sec (9.0-12.0) 03/19/21 13:58 INR 1.1 (<1.2) 03/19/21 13:58 Abnormal lab findings: Abnormal Labs 03/19/21 03/19/21 03/19/21 13:58 13:58 14:00 RBC 3.69 L Hgb 10.4 L D Hct MCHC 30.2 L Lymphocytes # 0.7 L VBG pH VBG pCO2 VBG HCO3 Chloride 91 L Carbon Dioxide 44 H* BUN 26 H Glucose 112 H POC Glucose (mg/dL) 107 H C-Reactive Protein Albumin 3.1 L U Benzodiazepines Scrn 03/19/21 03/20/21 03/20/21 14:13 04:31 04:45 RBC Hgb Hct MCHC Lymphocytes # VBG pH 7.22 L VBG pCO2 114 H* VBG HCO3 47 H Chloride Carbon Dioxide BUN Glucose POC Glucose (mg/dL) 126 H C-Reactive Protein Albumin U Benzodiazepines Scrn Detected H 03/20/21 03/20/21 09:45 09:45 RBC 3.50 L Hgb 10.2 L Hct 33.6 L MCHC 30.5 L Lymphocytes # 0.7 L VBG pH VBG pCO2 VBG HCO3 Chloride 92 L Carbon Dioxide 41 H* BUN 24 H Glucose POC Glucose (mg/dL) C-Reactive Protein 5.7 H Albumin U Benzodiazepines Scrn - Diagnostic Findings Chest x-ray: report reviewed, image reviewed Additional studies: Brain CT, EKG, echocardiogram and chest ultrasound results have been reviewed Assessment and Plan Plan: Assessment: #1. Acute on chronic hypoxic and hypercapnic respiratory failure related to acute exacerbation of CHF with diastolic dysfunction and possibility of right lower lobe pneumonia, possibly community-acquired with a large right-sided pleural effusion. COVID-19 PCR was negative patient was placed on BiPAP support in the emergency department, mentation and oxygenation have improved. Ultrasound of the chest showed 12.5 cm right pleural effusion, and we'll plan on the right sided thoracentesis tomorrow on 03/22/2021 #2. Right lower lobe pneumonia with a large right pleural effusion, possibly parapneumonic, the plan is to proceed with right-sided thoracentesis on 03/22/2021 #3. Altered mental status possibly related to pneumonia and sepsis and acute on chronic hypercapnic respiratory failure, improved. Brain CT showed no acute intracranial findings #4. History of diastolic CHF with severe aortic stenosis and mitral valve stenosis #5. Chronic A. fib on Eliquis #6. Hypertension #7. History of COPD on home oxygen at 3 L #8. Anxiety/depression #9. Former smoker Plan: We'll place Eliquis on hold We'll proceed with right-sided thoracentesis tomorrow Pleural fluid will be sent for pleural fluid analysis, cultures and cytology Continue same antibiotics Continue BiPAP support, may offer the patient a trial on nasal cannula Contiue BiPAP support at bedtime and as needed Obtain consent for right-sided thoracentesis by Dr. Fournier tomorrow I performed a history & physical examination of the patient and discussed their management with my nurse practitioner, Kristy Cordova. I reviewed the nurse practitioner's note and agree with the documented findings and plan of care. Lung sounds are positive for dim breath sounds throughout the lung brice. The findings and the impression was discussed with the patient. I attest to the documentation by the nurse practitioner. Time with Patient: Greater than 30
[2021-03-21] MEDS: ALPRAZolam 0.25 MG TAB PO PRN (18:50)
--- NOTE | 2021-03-21 21:29 | P.PN ---
Subjective Progress Note Date: 03/21/21 80-year-old female her evaluation for altered mental status weakness found by family to be less responsive than usual. She had total bottles scattered about throat her house. Reports of any trauma or any fevers chills or sweats however she paranasal been eating and drinking as much as usual. Not as responsive as usual. Noted have tremors about the chest and hands today. 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 Labs are pending from today. Echocardiogram shows an EF of 50-55% with severe aortic stenosis, moderate mitral stenosis, mild tricuspid regurgitation. Previous echo from December 2020 shows an EF of 55-60%. Patient underwent chest ultrasound today which shows a large right pleural effusion. Pulmonary consulted. Procalcitonin 0.09, CRP 5.7. Patient continues on IV Rocephin, by mouth Zithromax, PO Lasix BID. ROS Constitutional: Denied any fatigue denied any fever. Cardio vascular: denied any chest pain, palpitations Gastrointestinal denied any nausea vomiting Pulmonary: Denied any shortness of breath cough Neurologic denied any new focal deficits All inpatient medications were reviewed and appropriate changes in these medications as dictated in the interval history and assessment and plan. PHYSICAL EXAMINATION: GENERAL: The patient is alert and oriented x3, not in any acute distress. Well developed, well nourished. HEENT: Pupils are round and equally reacting to light. EOMI. No scleral icterus. No conjunctival pallor. Normocephalic, atraumatic. No pharyngeal erythema. No thyromegaly. CARDIOVASCULAR: S1 and S2 present. No murmurs, rubs, or gallops. PULMONARY: Chest is clear to auscultation, no wheezing or crackles. ABDOMEN: Soft, nontender, nondistended, normoactive bowel sounds. No palpable organomegaly. MUSCULOSKELETAL: No joint swelling or deformity. EXTREMITIES: No cyanosis, clubbing, or pedal edema. NEUROLOGICAL: Gross neurological examination did not reveal any focal deficits. SKIN: No rashes. Assessment and Plan Assessment Acute hypercapnic and hypoxic respiratory failure secondary to large right pleural effusion multifactorial component of CHF exacerbation, right lower lobe pneumonia. Right lower lobe pneumonia, although procalcitonin 0.09 which isn't consistent with bacterial pneumonia. COVID PCR negative. Pt requrining Bipap 50% Fi02 currently. Altered mental status component of toxic/metabolic encephalopathy secondary to above, improving currently AO x3 Severe aortic stenosis Acute on chronic congestive heart failure, diastolic dysfunction, Atrial Fibrillation with RVR, on eliquis, bisoprolol was changed to metoprolol with better rate control in the now COPD, not in acute exacerbation patient with no wheezing noted on exam, no cough present, 3L home O2 currently on BiPAP Hypertension hyperlipidemia Anxiety/Depression Obesity DVT prophylaxis Eliquis GI prophylaxis Protonix Plan Pulmonary Consult Continue IV antibiotics Continue BiPAP Continue all other supportive care Repeat Labs in AM Objective - Vital Signs Vital signs: Vital Signs Temp 98 F 03/21/21 11:43 Pulse 98 03/21/21 11:43 Resp 24 03/21/21 11:43 BP 120/70 03/21/21 11:43 Pulse Ox 100 03/21/21 11:43 Intake & Output 03/20/21 03/21/21 03/21/21 18:59 06:59 18:59 Intake Total 360 118 Output Total 450 Balance -90 118 Intake: Oral 360 118 Output: Urine 450 Other: Voiding Method Diaper Diaper Diaper External Catheter External Catheter External Catheter # Voids 600 3 - Labs CBC & Chem 7: 03/20/21 09:45 03/21/21 16:44 Labs: Microbiology - Last 24 Hours (Table) 03/19/21 17:25 Blood Culture - Preliminary Blood No Growth after 24 hours 03/19/21 17:40 Blood Culture - Preliminary Blood No Growth after 24 hours
[2021-03-21] MEDS ORDERED: SODIUM CHLORIDE 0.65% NASAL SPRAY 44 ML BTL NASAL PRN (22:37)
[2021-03-21] MEDS: MELATONIN 3 MG TABLET PO SCH (22:55)
[2021-03-22] MEDS ORDERED: PANTOPRAZOLE 40 MG/10 ML VIAL IVP SCH (09:00)
[2021-03-22] MEDS: ATORVASTATIN 10 MG TAB PO SCH (09:12)
[2021-03-22] MEDS: FUROSEMIDE 20 MG TAB PO SCH ×2 (09:13→16:15)
[2021-03-22] MEDS: lisinopriL 10 MG TAB PO SCH (09:14)
[2021-03-22] MEDS: METOPROLOL TARTRATE 25 MG TAB PO SCH ×2 (09:14→20:38)
[2021-03-22] MEDS: MULTIVITAMINS, THERA 1 EACH TAB PO SCH (09:15)
[2021-03-22] MEDS: PARoxetine 10 MG TAB PO SCH (09:16)
[2021-03-22] MEDS: OXYBUTYNIN 10 MG TAB.ER.24 PO SCH (09:16)
[2021-03-22] MEDS: VERAPAMIL SR 120 MG TABLET.ER PO SCH (09:17)
[2021-03-22 09:19] LABS: Basophils % (A) 0 %; Eosinophils # (A) 0.1 k/uL (0-0.7); Eosinophils % (A) 1 %; HCT 36.7 % (34.0-46.0); HGB 10.7 gm/dL (11.4-16.0); Hypochromasia Marked; Lymphocytes # (A) 0.7 k/uL (1.0-4.8); Lymphocytes % (A) 8 %; MCH 28.1 pg (25.0-35.0); MCHC 29.2 g/dL (31.0-37.0); Mean Platelet Volume 7.5; Monocytes # (A) 0.5 k/uL (0-1.0); Monocytes % (A) 6 %; Neutrophils # (A) 8.1 k/uL (1.3-7.7); Neutrophils % (A) 84 %; Platelet Count 212 k/uL (150-450); RBC 3.82 m/uL (3.80-5.40); RDW 14.9 % (11.5-15.5); WBC 9.6 k/uL (3.8-10.6)
[2021-03-22 09:36] LABS: African American GFR (CKD) >90 (>60 ml/min/1.73 sqM); Anion Gap 5 mmol/L; Blood Urea Nitrogen 30 mg/dL (7-17); Calcium 9.2 mg/dL (8.4-10.2); Chloride 93 mmol/L (98-107); Glucose 106 mg/dL (74-99); Magnesium 1.8 mg/dL (1.6-2.3); Non-African American GFR(CKD) 81 (>60 ml/min/1.73 sqM); Potassium 4.3 mmol/L (3.5-5.1); Sodium 138 mmol/L (137-145)
[2021-03-22 09:52] LABS: Carbon Dioxide 40 mmol/L (22-30)
--- NOTE | 2021-03-22 10:11 | P.PN ---
Subjective Progress Note Date: 03/22/21 HISTORY OF PRESENT ILLNESS: 03/20/2021 Patient is an 80-year-old female with a known history of nonobstructive coronary artery disease atrial fibrillation and congestive heart failure severe aortic stenosis mitral valve stenosis hypertension. Patient follows with Dr. Zuñiga in the office. We have been consulted to see the patient for atrial fibrillation with RVR. Patient come into the hospital altered mental status she was found to be in atrial fibrillation with RVR. Patient is on ELiquis and lisinopril. Patient was started on bisoprolol. Will stop that and change her to Toprol 25 mg twice a day. Patient had a echo completed in December 2020 which shows severe aortic stenosis, normal LV function with an ejection fraction of 55-60% mild to moderate mitral valve stenosis and mild tricuspid regurgitation. Patient also underwent a cardiac catheterization in November 2020 which showed nonobstructive coronary artery disease patient is examined today resting comfortably in bed on a BiPAP. She was admitted for right lower lobe pneumonia. She is in no signs of acute distress. Patient is unable to answer answer questions and remains confused. Blood pressure remains well-controlled. will obtain a 2-D echo. 03/21/2021 Patient examined this morning at the bedside. Patient is currently wearing a Bipap. She reports shortness of breath, although improving. She denies chest pain or pressure. Telemetry reveals atrial fibrillation with controlled ventricular rates. Echocardiogram completed revealing ejection fraction 50-55%, severe aortic stenosis, moderate mitral stenosis, mild tricuspid regurgitation 03/22/2021 Patient examined this morning at the bedside. Patient is currently wearing a Bipap. Patient denies chest pain or pressure. Denies SOB. Denies palpitations. Vital signs are stable. PHYSICAL EXAM: VITAL SIGNS: Reviewed. GENERAL: Well-developed in no acute distress. NECK: Supple. No JVD or thyromegaly LUNGS: Respirations even and unlabored. Lungs diminished bilaterally. HEART: Irregular rate and rhythm. S1 and S2 heard. Systolic murmur noted. EXTREMITIES: Normal range of motion. No clubbing or cyanosis. Peripheral pulses intact. No lower extremity edema ASSESSMENT: Right lower lobe pneumonia Acute hypoxic respiratory failure Paroxysmal atrial fibrillation with RVR, on Eliquis Hypertension Hyperlipidemia Severe aortic stenosis PLAN: Continue current cardiac medications Continue anticoagulation with Eliquis Continue telemetry monitoring Further recommendations pending patient course Patient to follow up outpatient with Dr. Singh We will sign off. Please reconsult if needed. Nurse practitioner note has been reviewed by physician. Signing provider agrees with the documented findings, assessment, and plan of care. Objective - Vital Signs Vital signs: Vital Signs Temp 97.8 F 03/22/21 08:00 Pulse 82 03/22/21 09:00 Resp 21 03/22/21 09:00 BP 152/82 03/22/21 08:00 Pulse Ox 98 03/22/21 08:00 Intake & Output 03/21/21 03/22/21 03/22/21 18:59 06:59 18:59 Intake Total 458 Output Total 250 250 Balance 208 -250 Weight 98.883 kg Intake: Intake, IV Titration 190 Amount Sodium Chloride 0.9% 1, 140 000 ml @ 100 mls/hr IV . Q10H LUC[facility] Rx#:[id number] cefTRIAXone 2 gm In 50 Sodium Chloride 0.9% 50 ml @ 100 mls/hr IVPB Q24HR LUCIA Rx#:[id number] Oral 268 Output: Urine 250 250 Other: Voiding Method Diaper Diaper Diaper External Catheter External Catheter External Catheter # Voids 2 - Labs CBC & Chem 7: 03/22/21 08:43 03/22/21 08:40 Labs: Abnormal Lab Results - Last 24 Hours (Table) 03/21/21 03/22/21 03/22/21 Range/Units 16:44 08:40 08:43 Hgb 10.7 L (11.4-16.0) gm/dL MCHC 29.2 L (31.0-37.0) g/dL Neutrophils # 8.1 H (1.3-7.7) k/uL Lymphocytes # 0.7 L (1.0-4.8) k/uL Chloride 93 L 93 L (98-107) mmol/L Carbon Dioxide 42 H* 40 H (22-30) mmol/L BUN 30 H 30 H (7-17) mg/dL Glucose 103 H 106 H (74-99) mg/dL Microbiology - Last 24 Hours (Table) 03/19/21 17:25 Blood Culture - Preliminary Blood No Growth after 48 hours 03/19/21 17:40 Blood Culture - Preliminary Blood No Growth after 48 hours
[2021-03-22] MEDS: ASPIRIN 81 MG PO SCH (10:24)
[2021-03-22] MEDS ORDERED: Magnesium Replacement Protocol 1 EACH MISC MISCELLANE PRN (10:31)
--- NOTE | 2021-03-22 11:23 | P.PN ---
Subjective Progress Note Date: 03/22/21 80-year-old female her evaluation for altered mental status weakness found by family to be less responsive than usual. She had total bottles scattered about throat her house. Reports of any trauma or any fevers chills or sweats however she paranasal been eating and drinking as much as usual. Not as responsive as usual. Noted have tremors about the chest and hands today. 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 Labs are pending from today. Echocardiogram shows an EF of 50-55% with severe aortic stenosis, moderate mitral stenosis, mild tricuspid regurgitation. Previous echo from December 2020 shows an EF of 55-60%. Patient underwent chest ultrasound today which shows a large right pleural effusion. Pulmonary consulted. Procalcitonin 0.09, CRP 5.7. Patient continues on IV Rocephin, by mouth Zithromax, PO Lasix BID. 03/22/2021 Patient debilitated the bedside, she is on BiPAP 50% with a saturation of 90%, blood pressure stable 152/82 respirations 22, heart rate 86, afebrile. She has some anxiety last night about her pending thoracentesis today. Patient is denying any chest pain or chest pressure today she reports no shortness of breath on BiPAP. Cardiology has cleared patient today to follow up with Dr. Singh outpatient. Labs today hemoglobin stable 10.7, sodium 138, potassium 4.3, chloride 93, CO2 40, BUN 30, creatinine 0.69, blood sugar 106, mag 1.8. ROS Constitutional: Denied any fatigue denied any fever. Cardio vascular: denied any chest pain, palpitations Gastrointestinal denied any nausea vomiting Pulmonary: Reports mild cough, denies shortness of breath at rest. Neurologic denied any new focal deficits All inpatient medications were reviewed and appropriate changes in these medications as dictated in the interval history and assessment and plan. PHYSICAL EXAMINATION: GENERAL: The patient is alert and oriented x3, not in any acute distress on BiPAP. Well developed, well nourished. HEENT: Pupils are round and equally reacting to light. EOMI. No scleral icterus. No conjunctival pallor. Normocephalic, atraumatic. No pharyngeal erythema. No thyromegaly. CARDIOVASCULAR: S1 and S2 present. No murmurs, rubs, or gallops. PULMONARY: Patient has diminished lung sounds, no wheezing noted ABDOMEN: Soft, nontender, nondistended, normoactive bowel sounds. No palpable organomegaly. MUSCULOSKELETAL: No joint swelling or deformity. EXTREMITIES: No cyanosis, clubbing, or pedal edema. NEUROLOGICAL: Gross neurological examination did not reveal any focal deficits. SKIN: No rashes. Assessment and Plan Assessment Acute hypercapnic and hypoxic respiratory failure secondary to large right pleural effusion multifactorial component of CHF exacerbation, possible right lower lobe pneumonia. Right lower lobe pneumonia, although procalcitonin 0.09 which isn't consistent with bacterial pneumonia. COVID PCR negative. Pt requrining Bipap 50% Fi02 currently. Right thoracentesis planned today with cytology, cultures, and analysis of pleural fluid by pulmonary. Altered mental status component of toxic/metabolic encephalopathy secondary to above, improving currently AO x3 Severe aortic stenosis Acute on chronic congestive heart failure, diastolic dysfunction, EF 50-55% which is decreased from 55-60% from Dec Atrial Fibrillation with RVR, on eliquis, bisoprolol was changed to metoprolol with better rate control in the now COPD, not in acute exacerbation patient with no wheezing noted on exam, no cough present, 3L home O2 currently on BiPAP Hypertension hyperlipidemia Anxiety/Depression Obesity DVT prophylaxis Eliquis currently on hold GI prophylaxis Protonix Plan Possible thoracentesis today Continue IV antibiotics Continue BiPAP Continue all other supportive care Repeat Labs in AM Objective - Vital Signs Vital signs: Vital Signs Temp 97.8 F 03/22/21 08:00 Pulse 82 03/22/21 09:00 Resp 21 03/22/21 09:00 BP 152/82 03/22/21 08:00 Pulse Ox 98 03/22/21 08:00 Intake & Output 03/21/21 03/22/21 03/22/21 18:59 06:59 18:59 Intake Total 458 Output Total 250 250 Balance 208 -250 Weight 98.883 kg Intake: Intake, IV Titration 190 Amount Sodium Chloride 0.9% 1, 140 000 ml @ 100 mls/hr IV . Q10H [facility]UC[facility] Rx#:[id number] cefTRIAXone 2 gm In 50 Sodium Chloride 0.9% 50 ml @ 100 mls/hr IVPB Q24HR LUCIA Rx#:[id number] Oral 268 Output: Urine 250 250 Other: Voiding Method Diaper Diaper Diaper External Catheter External Catheter External Catheter # Voids 2 - Labs CBC & Chem 7: 03/22/21 08:43 03/22/21 08:40 Labs: Abnormal Lab Results - Last 24 Hours (Table) 03/21/21 03/22/21 03/22/21 Range/Units 16:44 08:40 08:43 Hgb 10.7 L (11.4-16.0) gm/dL MCHC 29.2 L (31.0-37.0) g/dL Neutrophils # 8.1 H (1.3-7.7) k/uL Lymphocytes # 0.7 L (1.0-4.8) k/uL Chloride 93 L 93 L (98-107) mmol/L Carbon Dioxide 42 H* 40 H (22-30) mmol/L BUN 30 H 30 H (7-17) mg/dL Glucose 103 H 106 H (74-99) mg/dL Microbiology - Last 24 Hours (Table) 03/19/21 17:25 Blood Culture - Preliminary Blood No Growth after 48 hours 03/19/21 17:40 Blood Culture - Preliminary Blood No Growth after 48 hours
[2021-03-22] MEDS: MAGNESIUM SULFATE-D5W PMX 1 GM in DEXTROSE/WATER 1 100ML.BAG IVPB SCH ×2 (11:59→16:15)
--- NOTE | 2021-03-22 12:20 | XR ---
EXAMINATION TYPE: XR chest 1V portable DATE OF EXAM: 03/22/2021 COMPARISON: 03/20/2021 HISTORY: Right thoracentesis TECHNIQUE: Single frontal view of the chest is obtained. FINDINGS: Interval improvement in the amount of pleural fluid with consolidation and no sizable pneu mothorax postthoracentesis. Arthropathy shoulders. Scoliosis with hypertrophic change of the spine. H eart size stable. IMPRESSION: 1. Interval reduction in amount of pleural fluid on the right post thoracentesis. No sizable pneumoth orax.
--- NOTE | 2021-03-22 12:42 | PCN ---
PROCEDURE NOTE PULMONARY/CRITICAL CARE PROCEDURE NOTE: PROCEDURE: Right-sided thoracentesis. PREOPERATIVE DIAGNOSIS: Right pleural effusion. POSTOPERATIVE DIAGNOSIS: Right pleural effusion. OPERATORS: 1. Dr. Fournier. 2. Dr. Beyer. 3. Dr. Cordova. PROCEDURE DESCRIPTION: There was informed consent. [place] time-out was completed verifying correct patient, procedure, site, positioning , and implant (s) or special equipment if applicable. Nursing students were in the room watching the procedure. The patient's procedure took placed in 360. Ultrasound guidance was used to kayce the posterior chest and appropriate fluid pocket was identified and marked. Patient was positioned, prepped and draped in usual sterile fashion. Lidocaine was used to anesthetize the area. A thoracentesis catheter was introduced into the pleural space and fluid was removed. Blood loss was none. A chest x-ray was ordered to evaluate for pneumothorax. Total Fluid Removed: Roughly 2 liters of bloody fluid. The fluid will be sent for analysis, including chemistry, microbiology and cytology. Patient tolerated the procedure well and there were no immediate complications. After the procedure was completed, the catheter was removed and a bandage was placed over the site of where the catheter was inserted. Again, there was no immediate complication. MMODL / IJN: [id number] /
[2021-03-22] MEDS ORDERED: RX INFO: IV CONTRAST WAS GIVEN 1 EACH MISC MISCELLANE PRN (12:54)
--- NOTE | 2021-03-22 13:12 | P.PN ---
Subjective Progress Note Date: 03/22/21 Principal diagnosis: Altered mental status, dyspnea 80-year-old white female patient with past medical history of congestive heart failure, severe aortic stenosis, mitral valve stenosis, hypertension, chronic atrial fibrillation on Eliquis, coronary artery disease, COPD and patient wears oxygen at home at 3 L, she is a former smoker, who presented to the emergency department on 03/19/2021 for evaluation of altered mental status. Brain CT was completed showing cerebral atrophy and extensive white matter changes likely related to chronic small vessel ischemia no hemorrhage. Patient's pulse ox was only 65% on room air on presentation, she was tachycardic, but she was afebrile, she tested negative for COVID-19, her chest x-ray showed mild congestive heart failure with a moderate-sized right pleural effusion, there was pulmonary congestion that was slightly increased compared to the previous chest x-ray. Her EKG showed A. fib with a rate of 110 BPM. And evidence of anterolateral infarct of undetermined age. Her laboratory analysis showed white blood cell count of 7.5, hemoglobin of 10.4, platelet count of 247, INR was 1.1, sodium is 139, potassium is 4.0, chloride is 91, CO2 is 44, B1 is 26 creatinine 0.76. LFTs were within normal limits, ammonia level was less than 9, troponin was less than 0.012, proBNP was elevated at 1740, urinalysis without sign of infection, urine drug screen showed benzodiazepines, COVID-19 PCR was negative. Patient was placed on BiPAP support with pressures of 14 and 6 and FiO2 is currently at 50%. Venous blood gas was obtained showing pH of 7.22, pCO2 of 114, and bicarbonate concentration of 47 on venous blood gas. She was started on empiric antibiotics with a combination of azithromycin and Rocephin for concern of unde rlying pneumonia. Cardiology consultation has been requested, and patient was given 1 dose of Lasix, and she is currently on home dose of Lasix to 20 mg twice daily. Today patient is seen on selective care unit, she is awake and alert, she is oriented 3, she denies any fever or chills at home, she does endorse cough, with no phlegm production, no complaints of chest discomfort, she is certainly much more awake and alert, answering simple questions. She will be trialed on nasal cannula On 03/22/2021 patient seen in follow-up on selective care unit, she is currently on BiPAP with pressures of 14/65-50%, she is awake and alert, answering questions appropriately, patient was given a trial on high flow nasal cannula at 5 L, and was noted to be desaturating and short of breath, she was placed back on BiPAP, tolerating BiPAP support well. No acute events overnight, denies any chest discomfort, her chest x-ray on admission showed a large right-sided pleural effusion, and consideration was given to possibility of parapneumonic pleural effusion, and patient may have a component of chronic CHF exacerbation as well in view of valvular heart disease. Today's labs have been reviewed, white blood cell count is 9.6, hemoglobin is 10.7, sodium is 1:30, potassium is 4.3, chloride is 93, CO2 is 40, B1 is 30, creatinine 0.69, 2 pro-calcitonin levels were negative at 0.09, and 0.07 making possibility of bacterial pneumonia less likely. Patient had a right-sided thoracentesis at the bedside by Dr. Fournier, tolerated procedure very well, nearly 2 L of thin serosanguineous fluid removed with the procedure and fluid was sent for analysis. Postprocedure chest x-ray showed interval reduction in the amount of pleural fluid on the right postthoracentesis no sizable pneumothorax. Objective - Vital Signs Vital signs: Vital Signs Temp 97.4 F L 03/22/21 12:00 Pulse 80 03/22/21 12:00 Resp 21 03/22/21 12:00 BP 98/60 03/22/21 12:00 Pulse Ox 100 03/22/21 12:00 Intake & Output 03/21/21 03/22/21 03/22/21 18:59 06:59 18:59 Intake Total 458 Output Total 250 250 Balance 208 -250 Weight 98.883 kg Intake: Intake, IV Titration 190 Amount Sodium Chloride 0.9% 1, 140 000 ml @ 100 mls/hr IV . Q10H [facility]UC[facility] Rx#:[id number] cefTRIAXone 2 gm In 50 Sodium Chloride 0.9% 50 ml @ 100 mls/hr IVPB Q24HR [facility]UCIA Rx#:[id number] Oral 268 Output: Urine 250 250 Other: Voiding Method Diaper Diaper Diaper External Catheter External Catheter External Catheter # Voids 2 - Exam GENERAL EXAM: Alert, very pleasant, 80-year-old white female, answering simple questions, currently on BiPAP support with pressures of 14 and 6 and FiO2 of 50%, comfortable in no apparent distress. HEAD: Normocephalic/atraumatic. EYES: Normal reaction of pupils, equal size. Conjunctiva pink, sclera white. NOSE: Clear with pink turbinates. THROAT: No erythema or exudates. NECK: No masses, no JVD, no thyroid enlargement, no adenopathy. CHEST: No chest wall deformity. Symmetrical expansion. LUNGS: Equal air entry with diminished breath sounds at the bases, right greater than left CVS: Irregular rate and rhythm, normal S1 and S2, no gallops, no murmurs, no rubs ABDOMEN: Soft, nontender. No hepatosplenomegaly, normal bowel sounds, no guarding or rigidity. EXTREMITIES: No clubbing, no edema, no cyanosis, 2+ pulses and upper and lower extremities. MUSCULOSKELETAL: Muscle strength and tone normal. SPINE: No scoliosis or deformity SKIN: No rashes CENTRAL NERVOUS SYSTEM: Alert and oriented -3. No focal deficits, tone is normal in all 4 extremities. PSYCHIATRIC: Alert and oriented -3. Appropriate affect. Intact judgment and insight. - Labs CBC & Chem 7: 03/22/21 08:43 03/22/21 08:40 Labs: Abnormal Lab Results - Last 24 Hours (Table) 03/21/21 03/22/21 03/22/21 Range/Units 16:44 08:40 08:43 Hgb 10.7 L (11.4-16.0) gm/dL MCHC 29.2 L (31.0-37.0) g/dL Neutrophils # 8.1 H (1.3-7.7) k/uL Lymphocytes # 0.7 L (1.0-4.8) k/uL Chloride 93 L 93 L (98-107) mmol/L Carbon Dioxide 42 H* 40 H (22-30) mmol/L BUN 30 H 30 H (7-17) mg/dL Glucose 103 H 106 H (74-99) mg/dL Microbiology - Last 24 Hours (Table) 03/19/21 17:25 Blood Culture - Preliminary Blood No Growth after 48 hours 03/19/21 17:40 Blood Culture - Preliminary Blood No Growth after 48 hours Assessment and Plan Plan: Assessment: #1. Acute on chronic hypoxic and hypercapnic respiratory failure related to acute exacerbation of CHF with diastolic dysfunction and possibility of right lower lobe pneumonia, possibly community-acquired with a large right-sided pleural effusion. COVID-19 PCR was negative patient was placed on BiPAP support in the emergency department, mentation and oxygenation have improved. Ultrasound of the chest showed 12.5 cm right pleural effusion, and Right sided thoracentesis was completed on 03/22/2021 #2. Large right pleural effusion, possibly parapneumonic, or possibly malignant, S/P right-sided thoracentesis on 03/22/2021 with removal of 2 L of serosanguineous pleural fluid which was sent for cytology, urinalysis, and cultures. 2 sets of Procalcitonin level were negative making possibility of underlying bacterial infection less likely #3. Altered mental status possibly related to pneumonia and sepsis and acute on chronic hypercapnic respiratory failure, improved. Brain CT showed no acute intracranial findings #4. History of diastolic CHF with severe aortic stenosis and mitral valve stenosis #5. Chronic A. fib on Eliquis #6. Hypertension #7. History of COPD on home oxygen at 3 L #8. Anxiety/depression #9. Former smoker Plan: Patient tolerated right thoracentesis well Post-procedure CXR shows no pneumothorax, residual right pleural effusion Fluid was sent for cultures, cytology and analysis We'll obtain CT chest with contrast today Postprocedure patient is feeling better, she is on 3 L of oxygen breathing much more comfortably Continue antibiotics for now We'll continue to follow her clinical course I performed a history & physical examination of the patient and discussed their management with my nurse practitioner, Kristy Cordova. I reviewed the nurse practitioner's note and agree with the documented findings and plan of care. Lung sounds are positive for dim breath sounds throughout the lung brice. The findings and the impression was discussed with the patient. I attest to the documentation by the nurse practitioner. Time with Patient: Less than 30
--- NOTE | 2021-03-22 14:42 | CT ---
EXAMINATION TYPE: CT chest w con DATE OF EXAM: 03/22/2021 COMPARISON: None HISTORY: Right lower lobe pneumonia, right pleural effusion CT DLP: 400.5 mGycm Automated exposure control for dose reduction was used. CONTRAST: CT scan of the chest is performed with IV Contrast, patient injected with 100 mL of Isovue 300. FINDINGS: LUNGS: Right hilar masslike density measuring 5.2 x 2.9 cm may reflect adenopathy versus neoplasm. Co rrelate with bronchoscopic evaluation and/or PET/CT. There is narrowing of the right lower lobe bronc hus with right lower lobe collapse. Small effusion is present. The left lung is clear. MEDIASTINUM: Precarinal lymph node measures 1.3 cm. There is subcarinal adenopathy noted measuring 1. 3 cm as well. Posterior thyroid nodule measures 3.1 cm right thyroid lobe. Thoracic aorta is of chinyere l caliber. The heart is mildly enlarged. UPPER ABDOMEN: No significant abnormality appreciated. OTHER: Anterior chest wall subcutaneous nodule measures 2.0 cm. IMPRESSION: The right hilar mass suspected versus underlying adenopathy. Recommend bronchoscopic evaluation and/o r PET/CT. 2. Narrowing of the right lower lobe bronchus with right lower lobe collapse. Small right-sided pleur al effusion. 3. Mild mediastinal adenopathy.
[2021-03-22 20:36] LABS: Appearance,BF Bloody
[2021-03-22] MEDS: MELATONIN 3 MG TABLET PO SCH (20:38)
[2021-03-23 05:54] LABS: Glucose, BF Source Pleural Fluid; Glucose, Body Fluid 114 mg/dL
[2021-03-23] MEDS: PANTOPRAZOLE 40 MG TABLET PO SCH (06:29)
[2021-03-23 07:35] LABS: Magnesium 2.1 mg/dL (1.6-2.3); Potassium 4.2 mmol/L (3.5-5.1)
[2021-03-23 08:10] LABS: LDH, Body Fluid Source Pleural Fluid; Total Protein, Body Fluid 3340 mg/dL
[2021-03-23] MEDS: METOPROLOL TARTRATE 25 MG TAB PO SCH ×2 (08:39→20:33)
[2021-03-23] MEDS: VERAPAMIL SR 120 MG TABLET.ER PO SCH (08:39)
[2021-03-23] MEDS: MULTIVITAMINS, THERA 1 EACH TAB PO SCH (08:39)
[2021-03-23] MEDS: lisinopriL 10 MG TAB PO SCH (08:39)
[2021-03-23] MEDS: FUROSEMIDE 20 MG TAB PO SCH ×2 (08:39→17:43)
[2021-03-23] MEDS: OXYBUTYNIN 10 MG TAB.ER.24 PO SCH (08:39)
[2021-03-23] MEDS: PARoxetine 10 MG TAB PO SCH (08:40)
[2021-03-23] MEDS: ASPIRIN 81 MG PO SCH (08:40)
[2021-03-23] MEDS: ATORVASTATIN 10 MG TAB PO SCH (08:40)
[2021-03-23] MEDS: ALPRAZolam 0.25 MG TAB PO PRN ×2 (10:04→20:36)
--- NOTE | 2021-03-23 11:32 | P.PN ---
Subjective 80-year-old female her evaluation for altered mental status weakness found by family to be less responsive than usual. She had total bottles scattered about throat her house. Reports of any trauma or any fevers chills or sweats however she paranasal been eating and drinking as much as usual. Not as responsive as usual. Noted have tremors about the chest and hands today. 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 Labs are pending from today. Echocardiogram shows an EF of 50-55% with severe aortic stenosis, moderate mitral stenosis, mild tricuspid regurgitation. Previous echo from December 2020 shows an EF of 55-60%. Patient underwent chest ultrasound today which shows a large right pleural effusion. Pulmonary consulted. P rocalcitonin 0.09, CRP 5.7. Patient continues on IV Rocephin, by mouth Zithromax, PO Lasix BID. 03/22/2021 Patient debilitated the bedside, she is on BiPAP 50% with a saturation of 90%, blood pressure stable 152/82 respirations 22, heart rate 86, afebrile. She has some anxiety last night about her pending thoracentesis today. Patient is denying any chest pain or chest pressure today she reports no shortness of breath on BiPAP. Cardiology has cleared patient today to follow up with Dr. Thi dai outpatient. Labs today hemoglobin stable 10.7, sodium 138, potassium 4.3, chloride 93, CO2 40, BUN 30, creatinine 0.69, blood sugar 106, mag 1.8. 03/22/2021 Patient is a pleasant 80-year-old female admitted for acute hypoxic respiratory failure found to have right-sided pleural effusion patient underwent pleural tap about 2 L of serosanguineous fluid was removed. Patient's respiratory status again improved after a drainage of the pleural fluid. Patient the pleural effusion appears to be exudative. Probably malignant pleural effusion patient had a CT of the chest which is concerned needing for hilar mass. Patient respiratory status as per the patient is bit worse compared to yesterday after the pleural tap because of which I obtain an x-ray still showing some moderate pleural effusion. ROS Constitutional: Denied any fatigue denied any fever. Cardio vascular: denied any chest pain, palpitations Gastrointestinal denied any nausea vomiting Pulmonary: Reports mild cough, denies shortness of breath at rest. Neurologic denied any new focal deficits All inpatient medications were reviewed and appropriate changes in these medications as dictated in the interval history and assessment and plan. PHYSICAL EXAMINATION: GENERAL: The patient is alert and oriented x3, not in any acute distress on BiPAP. Well developed, well nourished. HEENT: Pupils are round and equally reacting to light. EOMI. No scleral icterus. No conjunctival pallor. Normocephalic, atraumatic. No pharyngeal erythema. No thyromegaly. CARDIOVASCULAR: S1 and S2 present. No murmurs, rubs, or gallops. PULMONARY: Patient has diminished lung sounds, no wheezing noted ABDOMEN: Soft, nontender, nondistended, normoactive bowel sounds. No palpable organomegaly. MUSCULOSKELETAL: No joint swelling or deformity. EXTREMITIES: No cyanosis, clubbing, or pedal edema. NEUROLOGICAL: Gross neurological examination did not reveal any focal deficits. SKIN: No rashes. Assessment and Plan Assessment Acute hypercapnic and hypoxic respiratory failure secondary to large right pleural effusion probably malignant effusion possibility of CHF exacerbation is low and possibility of pneumonia is low. had thoracentesis with removal of 2 L of pleural fluid which is expected in nature Right lower lobe pneumonia, ruled out -Right hilar mass Altered mental status component of toxic/metabolic encephalopathy secondary to above, improving currently AO x3 Severe aortic stenosis Acute on chronic congestive heart failure, diastolic dysfunction, EF 50-55% which is decreased from 55-60% from Dec Atrial Fibrillation with RVR, on eliquis, bisoprolol was changed to metoprolol with better rate control in the 's now COPD, not in acute exacerbation patient with no wheezing noted on exam, no cough present, 3L home O2 currently on BiPAP Hypertension hyperlipidemia Anxiety/Depression Obesity DVT prophylaxis Eliquis currently on hold GI prophylaxis Protonix Objective - Vital Signs Vital signs: Vital Signs Temp 97.7 F 03/23/21 08:00 Pulse 97 03/23/21 09:00 Resp 21 03/23/21 09:00 BP 154/80 03/23/21 08:00 Pulse Ox 96 03/23/21 08:00 Intake & Output 03/22/21 03/23/21 03/23/21 18:59 06:59 18:59 Intake Total 740 Output Total 700 Balance 740 -700 Intake: Oral 740 Output: Urine 700 Other: Voiding Method Diaper Diaper External Catheter External Catheter External Catheter - Labs CBC & Chem 7: 03/22/21 08:43 03/23/21 06:17 Labs: Abnormal Lab Results - Last 24 Hours (Table) 03/23/21 Range/Units 06:17 Chloride 91 L (98-107) mmol/L Carbon Dioxide 43 H* (22-30) mmol/L BUN 31 H (7-17) mg/dL Glucose 174 H (74-99) mg/dL Microbiology - Last 24 Hours (Table) 03/22/21 11:45 Gram Stain - Preliminary Pleural Fluid Body Fluid Culture - Preliminary 03/19/21 17:25 Blood Culture - Preliminary Blood No Growth after 72 hours 03/19/21 17:40 Blood Culture - Preliminary Blood No Growth after 72 hours 03/22/21 11:45 Fungal Culture - Preliminary Pleural Fluid 03/22/21 11:45 Acid Fast Bacilli Culture - Preliminary Pleural Fluid 03/22/21 11:45 Anaerobic Culture - Preliminary Pleural Fluid
--- NOTE | 2021-03-23 11:50 | XR ---
EXAMINATION TYPE: XR chest 1V DATE OF EXAM: 03/23/2021 COMPARISON: Chest x-ray and CT 03/22/2021 HISTORY: Pleural effusion TECHNIQUE: Single frontal view of the chest is obtained. FINDINGS: Abnormal density persists at the right lung base, the right hemidiaphragm is obscured, rig ht heart border is partially obscured. There is an underlying scoliosis. No evident pneumothorax. [place] pical pleural thickening is stable. Aorta is dense. There are overlying leads. Left lung is better ae rated than the right as on prior exam, some bandlike areas of increased attenuation are noted in the left mid and lower lobes however. Some probable calcified granuloma. There is underlying emphysema. IMPRESSION: Possible right lower lobe lung mass. Probable postobstructive right lower lobe atelectasi s versus pneumonia and associated effusion.
--- NOTE | 2021-03-23 13:29 | P.PN ---
Subjective Progress Note Date: 03/23/21 Principal diagnosis: Altered mental status, dyspnea 80-year-old white female patient with past medical history of congestive heart failure, severe aortic stenosis, mitral valve stenosis, hypertension, chronic atrial fibrillation on Eliquis, coronary artery disease, COPD and patient wears oxygen at home at 3 L, she is a former smoker, who presented to the emergency department on 03/19/2021 for evaluation of altered mental status. Brain CT was completed showing cerebral atrophy and extensive white matter changes likely related to chronic small vessel ischemia no hemorrhage. Patient's pulse ox was only 65% on room air on presentation, she was tachycardic, but she was afebrile, she tested negative for COVID-19, her chest x-ray showed mild congestive heart failure with a moderate-sized right pleural effusion, there was pulmonary congestion that was slightly increased compared to the previous chest x-ray. Her EKG showed A. fib with a rate of 110 BPM. And evidence of anterolateral infarct of undetermined age. Her laboratory analysis showed white blood cell count of 7.5, hemoglobin of 10.4, platelet count of 247, INR was 1.1, sodium is 139, potassium is 4.0, chloride is 91, CO2 is 44, B1 is 26 creatinine 0.76. LFTs were within normal limits, ammonia level was less than 9, troponin was less than 0.012, proBNP was elevated at 1740, urinalysis without sign of infection, urine drug screen showed benzodiazepines, COVID-19 PCR was negative. Patient was placed on BiPAP support with pressures of 14 and 6 and FiO2 is currently at 50%. Venous blood gas was obtained showing pH of 7.22, pCO2 of 114, and bicarbonate concentration of 47 on venous blood gas. She was started on empiric antibiotics with a combination of azithromycin and Rocephin for concern of unde rlying pneumonia. Cardiology consultation has been requested, and patient was given 1 dose of Lasix, and she is currently on home dose of Lasix to 20 mg twice daily. Today patient is seen on selective care unit, she is awake and alert, she is oriented 3, she denies any fever or chills at home, she does endorse cough, with no phlegm production, no complaints of chest discomfort, she is certainly much more awake and alert, answering simple questions. She will be trialed on nasal cannula On 03/22/2021 patient seen in follow-up on selective care unit, she is currently on BiPAP with pressures of 14/65-50%, she is awake and alert, answering questions appropriately, patient was given a trial on high flow nasal cannula at 5 L, and was noted to be desaturating and short of breath, she was placed back on BiPAP, tolerating BiPAP support well. No acute events overnight, denies any chest discomfort, her chest x-ray on admission showed a large right-sided pleural effusion, and consideration was given to possibility of parapneumonic pleural effusion, and patient may have a component of chronic CHF exacerbation as well in view of valvular heart disease. Today's labs have been reviewed, white blood cell count is 9.6, hemoglobin is 10.7, sodium is 1:30, potassium is 4.3, chloride is 93, CO2 is 40, B1 is 30, creatinine 0.69, 2 pro-calcitonin levels were negative at 0.09, and 0.07 making possibility of bacterial pneumonia less likely. Patient had a right-sided thoracentesis at the bedside by Dr. Fournier, tolerated procedure very well, nearly 2 L of thin serosanguineous fluid removed with the procedure and fluid was sent for analysis. Postprocedure chest x-ray showed interval reduction in the amount of pleural fluid on the right postthoracentesis no sizable pneumothorax. On 03/23/2021 patient seen in follow-up on selective care unit. Yesterday she had a right-sided thoracentesis with removal of 2 L of blood-tinged fluid which was sent for analysis. Pleural fluid analysis reveals exudative fluid, cytology still pending, cultures are pending, no growth on the Gram stain so far. No fever or chills overnight, vital signs have been stable, patient is currently on 3 L of oxygen pulse ox is 98%. She had episode of confusion this morning, her daughter was called to the bedside. Otherwise no acute events overnight, no worsening dyspnea, she continues on Lasix 20 mg by mouth twice daily, she is on antibiotics in the form of Rocephin. Waiting final pleural fluid cultures, pro- calcitonin level was low. CT of the chest has been reviewed showing suspected right hilar mass versus underlying adenopathy with the recommendation of bronchoscopic evaluation and/or PET scan. Narrowing of the right lower lobe bronchus with right lower lobe collapse, small right-sided pleural effusion. Mild mediastinal adenopathy. Objective - Vital Signs Vital signs: Vital Signs Temp 96 F L 03/23/21 11:45 Pulse 82 03/23/21 11:45 Resp 17 03/23/21 11:45 BP 125/80 03/23/21 11:45 Pulse Ox 98 03/23/21 11:45 Intake & Output 03/22/21 03/23/21 03/23/21 18:59 06:59 18:59 Intake Total 740 Output Total 700 Balance 740 -700 Intake: Oral 740 Output: Urine 700 Other: Voiding Method Diaper Diaper External Catheter External Catheter External Catheter - Exam GENERAL EXAM: Alert, very pleasant, 80-year-old white female, answering simple questions, currently on 3 L of oxygen the pulse ox of 96% sitting up in a recliner, breathing comfortably HEAD: Normocephalic/atraumatic. EYES: Normal reaction of pupils, equal size. Conjunctiva pink, sclera white. NOSE: Clear with pink turbinates. THROAT: No erythema or exudates. NECK: No masses, no JVD, no thyroid enlargement, no adenopathy. CHEST: No chest wall deformity. Symmetrical expansion. LUNGS: Equal air entry with diminished breath sounds at the bases, right greater than left CVS: Irregular rate and rhythm, normal S1 and S2, no gallops, no murmurs, no rubs ABDOMEN: Soft, nontender. No hepatosplenomegaly, normal bowel sounds, no guarding or rigidity. EXTREMITIES: No clubbing, no edema, no cyanosis, 2+ pulses and upper and lower extremities. MUSCULOSKELETAL: Muscle strength and tone normal. SPINE: No scoliosis or deformity SKIN: No rashes CENTRAL NERVOUS SYSTEM: Alert and oriented -3. No focal deficits, tone is normal in all 4 extremities. PSYCHIATRIC: Alert and oriented -3. Appropriate affect. Intact judgment and insight. - Labs CBC & Chem 7: 03/22/21 08:43 03/23/21 06:17 Labs: Abnormal Lab Results - Last 24 Hours (Table) 03/23/21 Range/Units 06:17 Chloride 91 L (98-107) mmol/L Carbon Dioxide 43 H* (22-30) mmol/L BUN 31 H (7-17) mg/dL Glucose 174 H (74-99) mg/dL Microbiology - Last 24 Hours (Table) 03/22/21 11:45 Gram Stain - Preliminary Pleural Fluid Body Fluid Culture - Preliminary 03/19/21 17:25 Blood Culture - Preliminary Blood No Growth after 72 hours 03/19/21 17:40 Blood Culture - Preliminary Blood No Growth after 72 hours 03/22/21 11:45 Fungal Culture - Preliminary Pleural Fluid 03/22/21 11:45 Acid Fast Bacilli Culture - Preliminary Pleural Fluid 03/22/21 11:45 Anaerobic Culture - Preliminary Pleural Fluid Assessment and Plan Plan: Assessment: #1. Acute on chronic hypoxic and hypercapnic respiratory failure related to acute exacerbation of CHF with diastolic dysfunction and possibility of right lower lobe pneumonia, possibly community-acquired with a large right-sided pleural effusion. COVID-19 PCR was negative patient was placed on BiPAP support in the emergency department, mentation and oxygenation have improved. Ultrasound of the chest showed 12.5 cm right pleural effusion, and Right sided thoracentesis was completed on 03/22/2021 #2. Large right pleural effusion, possibly parapneumonic, or possibly malignant, S/P right-sided thoracentesis on 03/22/2021 with removal of 2 L of serosanguineous pleural fluid which was sent for cytology, urinalysis, and cultures. 2 sets of Procalcitonin level were negative making possibility of underlying bacterial infection less likely. Pleural fluid analysis revealed exudative fluid, cytology and cultures are still pending, no growth on the Gram stain #3. Suspected right hilar mass, narrowing of the right lower lobe bronchus and right lower lobe collapse. Bronchoscopy with biopsy will be scheduled for 03/25/2021 #4. Altered mental status possibly related to pneumonia and sepsis and acute on chronic hypercapnic respiratory failure, improved. Brain CT showed no acute intracranial findings #5. History of diastolic CHF with severe aortic stenosis and mitral valve stenosis #6. Chronic A. fib on Eliquis #7. Hypertension #8. History of COPD on home oxygen at 3 L #9. Anxiety/depression #10. Former smoker Plan: Patient is breathing comfortably today, she is down to 3 L of oxygen Pleural fluid cytology and cultures are still pending Pleural fluid was exudative, and possibility of malignancy is suspected CT of the chest showed possibility of right hilar mass with narrowing of the right lower lobe bronchus Patient will be scheduled for bronchoscopy with biopsies on 03/25/[address] Fournier This was discussed with the patient and her daughter and they are agreeable to proceed Meanwhile continue current medical treatment Keep off anticoagulation We'll place the patient on prophylactic Lovenox for now I performed a history & physical examination of the patient and discussed their management with my nurse practitioner, Kristy Cordova. I reviewed the nurse practitioner's note and agree with the documented findings and plan of care. Lung sounds are positive for dim breath sounds throughout the lung brice. The findings and the impression was discussed with the patient. I attest to the documentation by the nurse practitioner. Time with Patient: Less than 30
[2021-03-23] MEDS ORDERED: ENOXAPARIN 40 MG/0.4 ML SYRINGE SQ SCH (13:45)
[2021-03-23 14:48] LABS: Glucose,Whole Blood 197 mg/dL (75-99)
[2021-03-23 15:23] LABS: ABG Base Excess 22.3 mmol/L; ABG Oxygen Saturation 98.9 % (94-97); ABG PH 7.29 (7.35-7.45); ABG PO2 116 mmHg (83-108); ABG TCO2 52 mmol/L (19-24); Allen Test Performed? Yes
[2021-03-23 15:28] LABS: ABG PCO2 101 mmHg (35-45)
[2021-03-23 15:29] LABS: ABG HCO3 49 mmol/L (21-25)
--- NOTE | 2021-03-23 18:29 | P.CNNES ---
History of Present Illness Consult date: 03/23/21 Requesting physician: Kristy Cordova Reason for Consult: Code stroke History of Present Illness: Patient is a 80-year-old female with history of COPD came to the hospital on 03/19/2021 for altered mental status, and hyporesponsiveness and tremulousness. Patient was admitted for toxic metabolic encephalopathy related to pneumonia for which she was started on IV ceftriaxone with azithromycin. Patient also has history of atrial fibrillation with rapid ventricular rate for which patient is on Eliquis 5 mg twice a day. Patient's daughter who was present today mentions that patient had significant altered mental status for which she brought patient to the hospital on Sunday. However she improved while she was in the hospital. Patient was talking normally last night and this morning, holding conversation as usual. The nurses noted that she was talking as usual and was well at 10 AM today. Shortly after patient went to sleep. When she woke up at 10:30, patient was not speaking much. Patient's daughter also noticed the same at 11 AM. The patient was not talking, staring up at the ceiling. Stroke code was activated at 2 PM. Patient's NIH stroke scale was 3 mainly related to decreased responsiveness from mental status change. Patient was started on BiPAP. Patient underwent ABG about 20 minutes after being started on BiPAP, in which her pH was 7.29, pCO2 101, pO2 116, saturation 98.9%. I personally examined the patient, and did not see any focality on the examination. Patient slowly started improving, and was following commands as per examination. Patient has history of atrial fibrillation for last 10 years. Patient's Eliquis has been put on hold for last 2 days as patient had undergone thoracentesis yesterday, and is planned for lung biopsy on 03/25/2021. Patient's blood test shows normal WBC, hemoglobin 10.7, platelet 212. Electrolytes are n ormal, BUN 30, creatinine 0.69. Her last hemoglobin A1c 6.3 on 09/01/2020. Lipid panel with cholesterol 118, LDL 64, HDL 39 and triglycerides 75 on 09/01/2020. TFTs normal. Her daughter patient usually walks with a walker or sometimes uses a wheelchair. Patient lives with her daughter. Patient's daughter states that she is not as sharp since her hospitalization in December 2020. Some days she is better than others. She does have anxiety. Patient had a computed tomography scan of head performed on 03/19/2021 on admission, which showed no acute process. I personally reviewed computed t omography scan on the computer. There is significant small vessel disease. Patient has smoked 2 packs per day for 45 years, quit 18 years ago. Denies hypertension or diabetes. Review of Systems Due to BiPAP. Patient denies any headache. ROS unobtainable: due to mental status Past Medical History Past Medical History: COPD, Hypertension History of Any Multi-Drug Resistant Organisms: None Reported Past Surgical History: Adenoidectomy, Appendectomy, Section, Hysterectomy, Tonsillectomy Past Anesthesia/Blood Transfusion Reactions: No Reported Reaction Past Psychological History: Anxiety, Depression Smoking Status: Former smoker Past Alcohol Use History: None Reported Past Drug Use History: None Reported - Past Family History Mother Family Medical History: Cancer Medications and Allergies Home Medications Medication Instructions Recorded Confirmed Type Aspirin EC [Ecotrin Low Dose] 81 mg PO DAILY 01/19/17 03/19/21 History Multivitamins, Thera [Multivitamin 1 tab PO DAILY 01/19/17 03/19/21 History (formulary)] PARoxetine HCL 30 mg PO DAILY 01/19/17 03/19/21 History Tolterodine Tartrate [Detrol LA] 4 mg PO DAILY 01/21/21 03/19/21 History ALPRAZolam [Xanax] 0.25 mg PO DAILY PRN #3 tab 01/26/21 03/19/21 Rx Apixaban [Eliquis] 5 mg PO BID tab 01/26/21 03/19/21 Rx Furosemide [Lasix] 20 mg PO BID #60 tab 01/26/21 03/19/21 Rx Atorvastatin [Lipitor] 10 mg PO DAILY 03/19/21 03/19/21 History Verapamil HCl [Verapamil ER] 120 mg PO DAILY 03/19/21 03/19/21 History lisinopriL 30 mg PO DAILY 03/19/21 03/19/21 History Allergies Allergy/AdvReac Type Severity Reaction Status Date / Time aspirin AdvReac Nausea Verified 03/19/21 13:56 Physical Examination - Vital Signs Vital Signs: Vital Signs Temp Pulse Pulse Resp BP BP Pulse Ox 03/23/21 14:00 84 70 24 03/23/21 12:00 97.9 F 70 24 100/63 93 L 03/23/21 11:45 96 F L 82 17 125/80 98 03/23/21 09:00 97 21 03/23/21 08:00 97.7 F 84 97 21 154/80 96 03/23/21 04:00 97.8 F 84 18 128/76 96 03/23/21 00:00 82 20 129/70 96 03/22/21 20:00 97.7 F 79 18 107/66 98 Intake and Output 03/23/21 03/23/21 03/23/21 06:59 14:59 22:59 Other: Voiding Method Diaper External Catheter External Catheter Patient is an elderly female, who was somewhat obtunded at the beginning of stroke code, but with BiPAP, she started getting better. Patient at the end of the interview, became very alert awake, and would make humorous gestures. She would smile, and follow directions. Patient able to name 2 out of 2 objects presented, and was able to repeat without problem. Patient able to point to the door on her right, and window on her left side without any issue. Speech and language functions are normal. Attention, concentration and fund of knowledge is limited. On cranial examination, pupils are round and reacting to light, visual brice are full on confrontation, extraocular muscles are intact with no nystagmus. Face is symmetric, could not check the tongue, or palate because of patient being on BiPAP. Facial sensations equal. Shoulder shrug normal. On muscle strength testing, patient has significant myoclonic jerks of outstretched hands consistent with metabolic encephalopathy. Her biceps, triceps, deltoid and property underwriter are all normal bilaterally. Patient's strength of the ankles are normal. Hip flexion appears equal bilaterally, although had myoclonic jerks. Deep tendon reflexes are 1+ and plantars downgoing. Sensory to touch is equal with no neglect. Cerebellar function showed no ataxia for [id number]-owpt testing. Tone and bulk of muscles normal. Gait not checked. On general examination, there is no carotid bruit or murmur, S1-S2 audible. Abdomen is soft nontender. No organomegaly. Bowel sounds present. No chest wall deformity, breath sounds diminished at the bases. Peripheral pulses are present. Results - Laboratory Findings CBC and BMP: 03/22/21 08:43 03/23/21 06:17 Abnormal Lab Findings: Abnormal Labs 03/19/21 03/19/21 03/19/21 13:58 13:58 14:00 RBC 3.69 L Hgb 10.4 L D Hct MCHC 30.2 L Neutrophils # Lymphocytes # 0.7 L ABG pH ABG pCO2 ABG pO2 ABG HCO3 ABG Total CO2 ABG O2 Saturation VBG pH VBG pCO2 VBG HCO3 Chloride 91 L Carbon Dioxide 44 H* BUN 26 H Glucose 112 H POC Glucose (mg/dL) 107 H C-Reactive Protein Albumin 3.1 L U Benzodiazepines Scrn 03/19/21 03/20/21 03/20/21 14:13 04:31 04:45 RBC Hgb Hct MCHC Neutrophils # Lymphocytes # ABG pH ABG pCO2 ABG pO2 ABG HCO3 ABG Total CO2 ABG O2 Saturation VBG pH 7.22 L VBG pCO2 114 H* VBG HCO3 47 H Chloride Carbon Dioxide BUN Glucose POC Glucose (mg/dL) 126 H C-Reactive Protein Albumin U Benzodiazepines Scrn Detected H 03/20/21 03/20/21 03/21/21 09:45 09:45 16:44 RBC 3.50 L Hgb 10.2 L Hct 33.6 L MCHC 30.5 L Neutrophils # Lymphocytes # 0.7 L ABG pH ABG pCO2 ABG pO2 ABG HCO3 ABG Total CO2 ABG O2 Saturation VBG pH VBG pCO2 VBG HCO3 Chloride 92 L 93 L Carbon Dioxide 41 H* 42 H* BUN 24 H 30 H Glucose 103 H POC Glucose (mg/dL) C-Reactive Protein 5.7 H Albumin U Benzodiazepines Scrn 03/22/21 03/22/21 03/23/21 08:40 08:43 06:17 RBC Hgb 10.7 L Hct MCHC 29.2 L Neutrophils # 8.1 H Lymphocytes # 0.7 L ABG pH ABG pCO2 ABG pO2 ABG HCO3 ABG Total CO2 ABG O2 Saturation VBG pH VBG pCO2 VBG HCO3 Chloride 93 L 91 L Carbon Dioxide 40 H 43 H* BUN 30 H 31 H Glucose 106 H 174 H POC Glucose (mg/dL) C-Reactive Protein Albumin U Benzodiazepines Scrn 03/23/21 03/23/21 14:46 15:19 RBC Hgb Hct MCHC Neutrophils # Lymphocytes # ABG pH 7.29 L ABG pCO2 101 H* ABG pO2 116 H ABG HCO3 49 H* ABG Total CO2 52 H ABG O2 Saturation 98.9 H VBG pH VBG pCO2 VBG HCO3 Chloride Carbon Dioxide BUN Glucose POC Glucose (mg/dL) 197 H C-Reactive Protein Albumin U Benzodiazepines Scrn Assessment and Plan Assessment: * Status post stroke code. Patient's NIH stroke scale is 0. Patient has severe myoclonic jerks of outstretched hands, consistent with metabolic encephalopathy. Her ABG revealed pH of 7.29, with pCO2 101 consistent with CO2 narcosis. Patient's condition has much improved with use of BiPAP machine. * Right lower lobe pneumonia, * Exacerbation of CHF * Right hilar mass * Chronic Atrial fibrillation, on Eliquis, currently on hold for lung biopsy on 03/25/2021. * Hypertension * COPD on home oxygen at 3 L * Anxiety/depression * X tobacco use Plan: * Management of COPD as per IM and pulmonary medicine. * Patient's current NIH stroke scale is 0. * 2-D echo from 03/20/2021 showed normal left-ventricular size. Moderate concentric LVH. EF is between 50-55%. Left atrium is moderately dilated. Severe aortic stenosis. Moderate mitral stenosis. Cardiology on board, aware of aortic stenosis. * Patient has atrial fibrillation, anticoagulation on hold for last 2 days. Suggest bridging with Lovenox or heparin, until Eliquis can be resumed. * Carotid Doppler rule out stenosis. * Neurology will follow. Time with Patient: Greater than 30 (Complexity high.)
[2021-03-23] MEDS: MELATONIN 3 MG TABLET PO SCH (20:33)
[2021-03-23] MEDS: ENOXAPARIN 100 MG/ML SYRINGE SQ SCH (20:33)
--- NOTE | 2021-03-24 02:45 | US ---
EXAMINATION TYPE: US carotid duplex BILAT DATE OF EXAM: 03/23/2021 COMPARISON: CT, MR CLINICAL HISTORY: Stroke code. Stroke code. Previous smoker. EXAM MEASUREMENTS: RIGHT: Peak Systolic Velocity (PSV) cm/sec ----- Right CCA: 59.3 ----- Right ICA: 98.2 ----- Right ECA: 47.8 ICA/CCA ratio: 1.7 RIGHT: End Diastole cm/sec ----- Right CCA: 19.4 ----- Right ICA: 32.2 ----- Right ECA: 0.0 LEFT: Peak Systolic Velocity (PSV) cm/sec ----- Left CCA: 47.8 ----- Left ICA: 103.6 ----- Left ECA: 52.4 ICA/CCA ratio: 2.2 LEFT: End Diastole cm/sec ----- Left CCA: 19.3 ----- Left ICA: 37.7 ----- Left ECA: 0.0 VERTEBRALS (direction of flow): Right Vertebral: Antegrade Left Vertebral: Unable to visualize. Rhythm: Arrhythmia Exam very limited due to heavy breathing, patient had to keep bipap on per RN. Plaque seen bilateral CCA, bilateral bulb, and right prox ICA. No elevated velocities at this time. ICA/CCA ratio is 2.2 on the left. ECA ED is 0.0 cm/s bilaterally. IMPRESSION: We could not demonstrate flow in the left vertebral artery which could be occluded. There is bilateral plaque formation in the carotid arteries. The images and measurements suggest less than 50% stenosis in both internal carotid arteries. Criteria for Assigning % of Stenosis / Diameter reduction (Estimation based on the indirect measurements of the internal carotid artery velocities (ICA PSV). 1. Normal (no stenosis)=ICA PSV < 125 cm/s: ratio < 2.0: ICA EDV<40 cm/s. 2. Less than 50% stenosis=ICA PSV < 125 cm/s: ratio < 2.0: ICA EDV<40 cm/s. 3. 50 to 69% stenosis=ICA PSV of 125 to 230 cm/s: ration 2.0 ? 4.0: ICA EDV 40-100 cm/s. 4. Greater than 70% stenosis to near occlusion= ICA PSV > 230 cm/s: ratio > 4.0: ICA EDV > 100 cm/s. 5. Near occlusion= ICA PSV velocities may be low or undetectable: variable ratio and ICA EDV. 6. Total occlusion=unable to detect flow.
[2021-03-24] MEDS: PANTOPRAZOLE 40 MG TABLET PO SCH (06:47)
[2021-03-24] MEDS: lisinopriL 10 MG TAB PO SCH (07:51)
[2021-03-24] MEDS: METOPROLOL TARTRATE 25 MG TAB PO SCH ×2 (07:51→21:52)
[2021-03-24] MEDS: ATORVASTATIN 10 MG TAB PO SCH (07:51)
[2021-03-24] MEDS: FUROSEMIDE 20 MG TAB PO SCH ×2 (07:51→17:22)
[2021-03-24] MEDS: ENOXAPARIN 100 MG/ML SYRINGE SQ SCH ×2 (07:52→21:53)
[2021-03-24] MEDS: MULTIVITAMINS, THERA 1 EACH TAB PO SCH (07:52)
[2021-03-24] MEDS: VERAPAMIL SR 120 MG TABLET.ER PO SCH (07:52)
[2021-03-24] MEDS: PARoxetine 10 MG TAB PO SCH (07:52)
[2021-03-24] MEDS: OXYBUTYNIN 10 MG TAB.ER.24 PO SCH (07:52)
[2021-03-24] MEDS: ALPRAZolam 0.25 MG TAB PO PRN (09:55)
--- NOTE | 2021-03-24 12:22 | P.PN ---
Subjective 80-year-old female her evaluation for altered mental status weakness found by family to be less responsive than usual. She had total bottles scattered about throat her house. Reports of any trauma or any fevers chills or sweats however she paranasal been eating and drinking as much as usual. Not as responsive as usual. Noted have tremors about the chest and hands today. 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 Labs are pending from today. Echocardiogram shows an EF of 50-55% with severe aortic stenosis, moderate mitral stenosis, mild tricuspid regurgitation. Previous echo from December 2020 shows an EF of 55-60%. Patient underwent chest ultrasound today which shows a large right pleural effusion. Pulmonary consulted. P rocalcitonin 0.09, CRP 5.7. Patient continues on IV Rocephin, by mouth Zithromax, PO Lasix BID. 03/22/2021 Patient debilitated the bedside, she is on BiPAP 50% with a saturation of 90%, blood pressure stable 152/82 respirations 22, heart rate 86, afebrile. She has some anxiety last night about her pending thoracentesis today. Patient is denying any chest pain or chest pressure today she reports no shortness of breath on BiPAP. Cardiology has cleared patient today to follow up with Dr. Thi dai outpatient. Labs today hemoglobin stable 10.7, sodium 138, potassium 4.3, chloride 93, CO2 40, BUN 30, creatinine 0.69, blood sugar 106, mag 1.8. 03/22/2021 Patient is a pleasant 80-year-old female admitted for acute hypoxic respiratory failure found to have right-sided pleural effusion patient underwent pleural tap about 2 L of serosanguineous fluid was removed. Patient's respiratory status again improved after a drainage of the pleural fluid. Patient the pleural effusion appears to be exudative. Probably malignant pleural effusion patient had a CT of the chest which is concerned needing for hilar mass. Patient respiratory status as per the patient is bit worse compared to yesterday after the pleural tap because of which I obtain an x-ray still showing some moderate pleural effusion. 03/24/2021 Patient had a respiratory decompensation yesterday patient had altered mental status code stroke was called although patient is found to have highly elevated pCO2 of 102 patient was started on BiPAP. Since code stroke was called neurology was consulted and the ordered a carotid Doppler showed some abnormality in the flow in vertebral artery. CT of the head did not show any acute stroke. It was recommended that by neurology to be resumed on anticoagulation this anti-correlation is being held for possible biopsy of the right lung mass. Considering respiratory decompensation biopsy probably will not be done during this hospitalization. Patient probably will be started on E liquis for that reason. When I evaluated the patient patient wanted to be discharged and doesn't want to continue any further treatment and just wanted to go home and . I had a lengthy discussion with the daughter regarding options of the treatment I also discussed with oncology regarding its treatment options. Even though patient cannot get the a bronchoscopy biopsy rate of a liquid biopsy can be done looking for adenocarcinoma and EGFR genes, if they are positive patient can receive biol ogic therapy with lesser side effects than chemotherapy which probably patient can tolerate it because of this reason up in a consulted oncology in the hospice and palliative care will evaluate the patient as well. Patient remains on BiPAP. Quite anxious for which patient is on Xanax does frequency of which will be increased and also on Haldol considering her age to much show benzodiazepines can lead to confusion and agitation. ROS Constitutional: Denied any fatigue denied any fever. Cardio vascular: denied any chest pain, palpitations Gastrointestinal denied any nausea vomiting Pulmonary: As mentioned in the interval history Neurologic denied any new focal deficits All inpatient medications were reviewed and appropriate changes in these medications as dictated in the interval history and assessment and plan. PHYSICAL EXAMINATION: GENERAL: The patient is alert and oriented x3, not in any acute distress on BiPAP. Well developed, well nourished. HEENT: Pupils are round and equally reacting to light. EOMI. No scleral icterus. No conjunctival pallor. Normocephalic, atraumatic. No pharyngeal erythema. No thyromegaly. CARDIOVASCULAR: S1 and S2 present. No murmurs, rubs, or gallops. PULMONARY: Significantly diminished air entry into bilateral lung brice, presently on BiPAP ABDOMEN: Soft, nontender, nondistended, normoactive bowel sounds. No palpable organomegaly. MUSCULOSKELETAL: No joint swelling or deformity. EXTREMITIES: No cyanosis, clubbing, or pedal edema. NEUROLOGICAL: Gross neurological examination did not reveal any focal deficits. SKIN: No rashes. Assessment and Plan Assessment Acute hypercapnic and hypoxic respiratory failure secondary to large right pleural effusion probably malignant effusion possibility of CHF exacerbation is low and possibility of pneumonia is low. had thoracentesis with removal of 2 L of pleural fluid which is exudative in nature but negative for malignant cells. Right lower lobe pneumonia, ruled out -Right hilar mass will be malignancy unless otherwise proven. Oncology was consulted. Altered mental status component of toxic/metabolic encephalopathy secondary to above CO2 retention for which patient is presently on BiPAP and patient is presently alert oriented 3 patient underwent workup for stroke so far negative. Severe aortic stenosis Acute on chronic congestive heart failure, diastolic dysfunction, EF 50-55% which is decreased from 55-60% from Dec Atrial Fibrillation with RVR, on eliquis, at home, presently on metoprolol and Lovenox probably can be switched back to Eliquis. COPD, not in acute exacerbation patient with no wheezing noted on exam, no cough present, 3L home O2 currently on BiPAP Hypertension hyperlipidemia Anxiety/Depression Obesity DVT prophylaxis Eliquis currently on hold GI prophylaxis Protonix Objective - Vital Signs Vital signs: Vital Signs Temp 98.1 F 03/24/21 08:00 Pulse 77 03/24/21 08:00 Resp 20 03/24/21 08:00 BP 113/72 03/24/21 08:00 Pulse Ox 94 L 03/24/21 09:12 Intake & Output 03/23/21 03/24/21 03/24/21 18:59 06:59 18:59 Intake Total 290 240 118 Balance 290 240 118 Intake: Oral 290 240 118 Other: Voiding Method External Catheter External Catheter External Catheter # Voids 1 # Bowel Movements 1 - Labs CBC & Chem 7: 03/22/21 08:43 03/23/21 06:17 Labs: Abnormal Lab Results - Last 24 Hours (Table) 03/23/21 03/23/21 Range/Units 14:46 15:19 ABG pH 7.29 L (7.35-7.45) ABG pCO2 101 H* (35-45) mmHg ABG pO2 116 H (83-108) mmHg ABG HCO3 49 H* (21-25) mmol/L ABG Total CO2 52 H (19-24) mmol/L ABG O2 Saturation 98.9 H (94-97) % POC Glucose (mg/dL) 197 H (75-99) mg/dL Microbiology - Last 24 Hours (Table) 03/22/21 11:45 Gram Stain - Preliminary Pleural Fluid Body Fluid Culture - Preliminary 03/19/21 17:25 Blood Culture - Preliminary Blood No Growth after 96 hours 03/19/21 17:40 Blood Culture - Preliminary Blood No Growth after 96 hours 03/22/21 11:45 Acid Fast Bacilli Smear - Final Pleural Fluid Acid Fast Bacilli Culture - Preliminary
--- NOTE | 2021-03-24 13:33 | XR ---
EXAMINATION TYPE: XR chest 1V portable DATE OF EXAM: 03/24/2021 COMPARISON: Chest x-ray 03/23/2021 HISTORY: Shortness of breath TECHNIQUE: Single frontal view of the chest is obtained. FINDINGS: Findings are similar to prior exam. IMPRESSION: Cardiomegaly. Probable right pleural effusion and associated atelectasis versus pneumoni a, difficult to exclude underlying mass. Rib anomalies are present at the lower cervical spine on the left. Aorta is dense. Scoliosis is present visualized spine. There are overlying artifacts. IMPRESSION: Stable abnormal findings
--- NOTE | 2021-03-24 14:18 | P.PN ---
Subjective Progress Note Date: 03/24/21 Principal diagnosis: Altered mental status, dyspnea 80-year-old white female patient with past medical history of congestive heart failure, severe aortic stenosis, mitral valve stenosis, hypertension, chronic atrial fibrillation on Eliquis, coronary artery disease, COPD and patient wears oxygen at home at 3 L, she is a former smoker, who presented to the emergency department on 03/19/2021 for evaluation of altered mental status. Brain CT was completed showing cerebral atrophy and extensive white matter changes likely related to chronic small vessel ischemia no hemorrhage. Patient's pulse ox was only 65% on room air on presentation, she was tachycardic, but she was afebrile, she tested negative for COVID-19, her chest x-ray showed mild congestive heart failure with a moderate-sized right pleural effusion, there was pulmonary congestion that was slightly increased compared to the previous chest x-ray. Her EKG showed A. fib with a rate of 110 BPM. And evidence of anterolateral infarct of undetermined age. Her laboratory analysis showed white blood cell count of 7.5, hemoglobin of 10.4, platelet count of 247, INR was 1.1, sodium is 139, potassium is 4.0, chloride is 91, CO2 is 44, B1 is 26 creatinine 0.76. LFTs were within normal limits, ammonia level was less than 9, troponin was less than 0.012, proBNP was elevated at 1740, urinalysis without sign of infection, urine drug screen showed benzodiazepines, COVID-19 PCR was negative. Patient was placed on BiPAP support with pressures of 14 and 6 and FiO2 is currently at 50%. Venous blood gas was obtained showing pH of 7.22, pCO2 of 114, and bicarbonate concentration of 47 on venous blood gas. She was started on empiric antibiotics with a combination of azithromycin and Rocephin for concern of unde rlying pneumonia. Cardiology consultation has been requested, and patient was given 1 dose of Lasix, and she is currently on home dose of Lasix to 20 mg twice daily. Today patient is seen on selective care unit, she is awake and alert, she is oriented 3, she denies any fever or chills at home, she does endorse cough, with no phlegm production, no complaints of chest discomfort, she is certainly much more awake and alert, answering simple questions. She will be trialed on nasal cannula On 03/22/2021 patient seen in follow-up on selective care unit, she is currently on BiPAP with pressures of 14/65-50%, she is awake and alert, answering questions appropriately, patient was given a trial on high flow nasal cannula at 5 L, and was noted to be desaturating and short of breath, she was placed back on BiPAP, tolerating BiPAP support well. No acute events overnight, denies any chest discomfort, her chest x-ray on admission showed a large right-sided pleural effusion, and consideration was given to possibility of parapneumonic pleural effusion, and patient may have a component of chronic CHF exacerbation as well in view of valvular heart disease. Today's labs have been reviewed, white blood cell count is 9.6, hemoglobin is 10.7, sodium is 1:30, potassium is 4.3, chloride is 93, CO2 is 40, B1 is 30, creatinine 0.69, 2 pro-calcitonin levels were negative at 0.09, and 0.07 making possibility of bacterial pneumonia less likely. Patient had a right-sided thoracentesis at the bedside by Dr. Fournier, tolerated procedure very well, nearly 2 L of thin serosanguineous fluid removed with the procedure and fluid was sent for analysis. Postprocedure chest x-ray showed interval reduction in the amount of pleural fluid on the right postthoracentesis no sizable pneumothorax. On 03/23/2021 patient seen in follow-up on selective care unit. Yesterday she had a right-sided thoracentesis with removal of 2 L of blood-tinged fluid which was sent for analysis. Pleural fluid analysis reveals exudative fluid, cytology still pending, cultures are pending, no growth on the Gram stain so far. No fever or chills overnight, vital signs have been stable, patient is currently on 3 L of oxygen pulse ox is 98%. She had episode of confusion this morning, her daughter was called to the bedside. Otherwise no acute events overnight, no worsening dyspnea, she continues on Lasix 20 mg by mouth twice daily, she is on antibiotics in the form of Rocephin. Waiting final pleural fluid cultures, pro- calcitonin level was low. CT of the chest has been reviewed showing suspected right hilar mass versus underlying adenopathy with the recommendation of bronchoscopic evaluation and/or PET scan. Narrowing of the right lower lobe bronchus with right lower lobe collapse, small right-sided pleural effusion. Mild mediastinal adenopathy. On 03/24/2021 patient seen in follow-up on selective care unit. Yesterday patient had a change in her mental status, she was found to be more lethargic, and family thought her speech was slurred, and patient was told to verbally respond. Patient was thought to be hypercapnic, and she was placed on BiPAP support and blood gas was obtained shortly after BiPAP support was applied affirming acute on chronic hypercapnic respiratory failure. PO2 was 116, pCO2 was 101, a pH of 7.29, and this was done and FiO2 of 50% and BiPAP 14 and 6. Today she seen in follow-up, she was seen by neurology in consultation. Her NIH stroke scale was 0 at the time of mental status changes and old stroke, no brain CT was recommended. Carotid Doppler showed bilateral plaque formation in the carotid arteries, and images in measurements suggest less than 50% stenosis bilaterally. Today patient seems to be more awake, she is able to respond to simple questions, she remains on BiPAP support today, her daughter thinks her speech has improved. Neurology evaluated the patient, and patient had been off her anticoagulation for history of atrial fibrillation for 2 days prior to right-sided thoracentesis, at this time they are recommended to continue with anticoagulation in view of her neurological symptoms and chronic A. fib. She is also on BiPAP support most of the time, we discussed recent clinical changes in her condition with her daughter and at this time bronchoscopy with biopsies will be postponed. Objective - Vital Signs Vital signs: Vital Signs Temp 97.9 F 03/24/21 12:00 Pulse 60 03/24/21 13:40 Resp 29 H 03/24/21 13:40 BP 102/62 03/24/21 12:00 Pulse Ox 97 03/24/21 12:00 Intake & Output 03/23/21 03/24/21 03/24/21 18:59 06:59 18:59 Intake Total 290 240 118 Balance 290 240 118 Weight 98.883 kg Intake: Oral 290 240 118 Other: Voiding Method External Catheter External Catheter External Catheter # Voids 1 # Bowel Movements 1 - Exam GENERAL EXAM: Alert, very pleasant, 80-year-old white female, answering simple questions, currently on BiPAP support with pressures of 14 and 6, and FiO2 50%. HEAD: Normocephalic/atraumatic. EYES: Normal reaction of pupils, equal size. Conjunctiva pink, sclera white. NOSE: Clear with pink turbinates. THROAT: No erythema or exudates. NECK: No masses, no JVD, no thyroid enlargement, no adenopathy. CHEST: No chest wall deformity. Symmetrical expansion. LUNGS: Equal air entry with diminished breath sounds at the bases, right greater than left CVS: Irregular rate and rhythm, normal S1 and S2, no gallops, no murmurs, no rubs ABDOMEN: Soft, nontender. No hepatosplenomegaly, normal bowel sounds, no guarding or rigidity. EXTREMITIES: No clubbing, no edema, no cyanosis, 2+ pulses and upper and lower extremities. MUSCULOSKELETAL: Muscle strength and tone normal. SPINE: No scoliosis or deformity SKIN: No rashes CENTRAL NERVOUS SYSTEM: Alert and oriented -3. No focal deficits, tone is normal in all 4 extremities. PSYCHIATRIC: Alert and oriented -3. Appropriate affect. Intact judgment and insight. - Labs CBC & Chem 7: 03/22/21 08:43 03/23/21 06:17 Labs: Abnormal Lab Results - Last 24 Hours (Table) 03/23/21 03/23/21 Range/Units 14:46 15:19 ABG pH 7.29 L (7.35-7.45) ABG pCO2 101 H* (35-45) mmHg ABG pO2 116 H (83-108) mmHg ABG HCO3 49 H* (21-25) mmol/L ABG Total CO2 52 H (19-24) mmol/L ABG O2 Saturation 98.9 H (94-97) % POC Glucose (mg/dL) 197 H (75-99) mg/dL Microbiology - Last 24 Hours (Table) 03/22/21 11:45 Gram Stain - Preliminary Pleural Fluid Body Fluid Culture - Preliminary 03/19/21 17:25 Blood Culture - Preliminary Blood No Growth after 96 hours 03/19/21 17:40 Blood Culture - Preliminary Blood No Growth after 96 hours 03/22/21 11:45 Acid Fast Bacilli Smear - Final Pleural Fluid Acid Fast Bacilli Culture - Preliminary Assessment and Plan Plan: Assessment: #1. Acute on chronic hypoxic and hypercapnic respiratory failure related to acute exacerbation of CHF with diastolic dysfunction and possibility of right lower lobe pneumonia, possibly community-acquired with a large right-sided pleural effusion. COVID-19 PCR was negative patient was placed on BiPAP support in the emergency department, mentation and oxygenation have improved. Ultrasound of the chest showed 12.5 cm right pleural effusion, and Right sided thoracentesis was completed on 03/22/2021 #2. Large right pleural effusion, possibly parapneumonic, or possibly malignant, S/P right-sided thoracentesis on 03/22/2021 with removal of 2 L of serosanguineous pleural fluid which was sent for cytology, urinalysis, and cultures. 2 sets of Procalcitonin level were negative making possibility of underlying bacterial infection less likely. Pleural fluid analysis revealed exudative fluid, cytology was negative and cultures are still pending, no growth on the Gram stain #3. Suspected right hilar mass, narrowing of the right lower lobe bronchus and right lower lobe collapse. Bronchoscopy with biopsy will be scheduled for #4. Altered mental status possibly related to pneumonia and sepsis and acute on chronic hypercapnic respiratory failure, improved. Brain CT showed no acute intracranial findings #5. History of diastolic CHF with severe aortic stenosis and mitral valve stenosis #6. Chronic A. fib on Eliquis #7. Hypertension #8. History of COPD on home oxygen at 3 L #9. Anxiety/depression #10. Former smoker Plan: Patient is breathing comfortably, Yesterday she had a change in her mental status, neurology service was consulted please refer to the consultation note The alteration in mental status was likely related to hypercapnia and this was confirmed by a blood gas Today's chest x-ray has been obtained and reviewed showing right pleural effusion and associated atelectasis. Neurology recommends to continue with anticoagulation in view of chronic A. fib at this time We'll cancel a bronchoscopy with biopsies for tomorrow This was discussed with the patient's family was in agreement We'll continue to follow her clinical course and determine when it would be optimal to proceed with the biopsy Hospice meeting has been scheduled for possibility of hospice palliative care initiation However the daughter states she is not completely and firmly decided yet There is still considering bronchoscopy with biopsies and possible treatment if patient is determined to be suitable for it possibly with biologic agents Oncology services have been consulted The meantime we'll continue her current medical treatment We'll continue to follow her clinical course I performed a history & physical examination of the patient and discussed their management with my nurse practitioner, Kristy Cordova. I reviewed the nurse practitioner's note and agree with the documented findings and plan of care. Lung sounds are positive for dim breath sounds throughout the lung brice. The findings and the impression was discussed with the patient. I attest to the documentation by the nurse practitioner. Time with Patient: Less than 30
[2021-03-24] MEDS: HALOPERIDOL LACTATE 5 MG/ML 1 ML VIAL IVP PRN (17:22)
--- NOTE | 2021-03-24 19:40 | P.CONS ---
History of Present Illness - Reason for Consult Consult date: 03/24/21 Lung Mass Requesting physician: Per Abdul - Chief Complaint Sob - History of Present Illness Mrs. Schroeder is an 80-year-old white female patient with past medical history of congestive heart failure, severe aortic stenosis, mitral valve stenosis, hypertension, chronic atrial fibrillation on Eliquis, coronary artery disease, COPD and patient wears oxygen at home at 3 L, she is a former smoker she quit greater than 20 years ago. She presented to the emergency department on 03/19/2021 for evaluation of altered mental status. Brain CT was completed showing cerebral atrophy and extensive white matter changes likely related to chronic small vessel ischemia no hemorrhage. On admission she was hypoxix and in acute on chronic respiratory failure requiring Bipap. Further work-up and imaging revealed a right hilar mass and associated adenopathy. Because of this we have been asked to further evaluate. Daughter was at bedside during evaluation. Hospice has also met with patient and daughter. Patient is still acutely hypoxic and critically ill today. She did have a cytology sample which was non diagnostic, therefore a tissue biopsy would technically be needed to determine a definitive diagnosis. However at this time she is not stable and treatment options are likely to be limited depending on the results and type of malignancy. Review of Systems ROS unobtainable: due to mental status All systems: negative Past Medical History Past Medical History: COPD, Hypertension History of Any Multi-Drug Resistant Organisms: None Reported Past Surgical History: Adenoidectomy, Appendectomy, Section, Hysterectomy, Tonsillectomy Past Anesthesia/Blood Transfusion Reactions: No Reported Reaction Past Psychological History: Anxiety, Depression Smoking Status: Former smoker Past Alcohol Use History: None Reported Past Drug Use History: None Reported - Past Family History Mother Family Medical History: Cancer Medications and Allergies Home Medications Medication Instructions Recorded Confirmed Type Aspirin EC [Ecotrin Low Dose] 81 mg PO DAILY 01/19/17 03/19/21 History Multivitamins, Thera [Multivitamin 1 tab PO DAILY 01/19/17 03/19/21 History (formulary)] PARoxetine HCL 30 mg PO DAILY 01/19/17 03/19/21 History Tolterodine Tartrate [Detrol LA] 4 mg PO DAILY 01/21/21 03/19/21 History ALPRAZolam [Xanax] 0.25 mg PO DAILY PRN #3 tab 01/26/21 03/19/21 Rx Apixaban [Eliquis] 5 mg PO BID tab 01/26/21 03/19/21 Rx Furosemide [Lasix] 20 mg PO BID #60 tab 01/26/21 03/19/21 Rx Atorvastatin [Lipitor] 10 mg PO DAILY 03/19/21 03/19/21 History Verapamil HCl [Verapamil ER] 120 mg PO DAILY 03/19/21 03/19/21 History lisinopriL 30 mg PO DAILY 03/19/21 03/19/21 History Allergies Allergy/AdvReac Type Severity Reaction Status Date / Time aspirin AdvReac Nausea Verified 03/19/21 13:56 Physical Exam Vitals: Vital Signs Temp Pulse Pulse Resp BP BP Pulse Ox 03/24/21 12:00 97.9 F 60 29 H 102/62 97 03/24/21 09:12 94 L 03/24/21 08:00 98.1 F 77 20 113/72 100 03/24/21 03:37 97.3 F L 77 24 119/72 95 03/24/21 02:00 73 19 03/24/21 00:00 97.0 F L 73 19 103/66 93 L 03/23/21 20:00 97.5 F L 81 20 124/78 98 03/23/21 16:00 71 18 92/51 92 L 03/23/21 14:00 84 70 24 Intake and Output 03/23/21 03/24/21 03/24/21 22:59 06:59 14:59 Intake Total 240 118 Balance 240 118 Intake: Oral 240 118 Other: Voiding Method External Catheter External Catheter External Catheter # Voids 0 1 # Bowel Movements 1 Distress bipap Daughter spoke for patient Eccymosis on extremitities Diminished through all anter Exp wheezing Abd: Obese Ext: Edema Results CBC & Chem 7: 03/22/21 08:43 03/23/21 06:17 Labs: Abnormal Lab Results - Last 24 Hours (Table) 03/23/21 03/23/21 Range/Units 14:46 15:19 ABG pH 7.29 L (7.35-7.45) ABG pCO2 101 H* (35-45) mmHg ABG pO2 116 H (83-108) mmHg ABG HCO3 49 H* (21-25) mmol/L ABG Total CO2 52 H (19-24) mmol/L ABG O2 Saturation 98.9 H (94-97) % POC Glucose (mg/dL) 197 H (75-99) mg/dL Microbiology - Last 24 Hours (Table) 03/22/21 11:45 Gram Stain - Preliminary Pleural Fluid Body Fluid Culture - Preliminary 03/19/21 17:25 Blood Culture - Preliminary Blood No Growth after 96 hours 03/19/21 17:40 Blood Culture - Preliminary Blood No Growth after 96 hours 03/22/21 11:45 Acid Fast Bacilli Smear - Final Pleural Fluid Acid Fast Bacilli Culture - Preliminary Chest x-ray: report reviewed CT scan - chest: report reviewed Assessment and Plan (1) Right lower lobe pneumonia Narrative/Plan: Right Hilaar 5.2cm with additional adenopathy found on CT Cytology negative Unable to perform Tissue biopsy due to hypoxia and increased oxygenation need at this time Current Visit: Yes Status: Acute Code(s): J18.9 - PNEUMONIA, UNSPECIFIED O RGANISM SNOMED Code(s): 635526974 (2) Hypoxia Current Visit: No Status: Acute Code(s): R09.02 - HYPOXEMIA SNOMED Code(s): 705941579 (3) New onset a-fib Current Visit: No Status: Acute Code(s): I48.91 - UNSPECIFIED ATRIAL FIBRILLATION SNOMED Code(s): 25723745 Plan: At this time patient is not stable for biopsy, discussed with daughter and if she is to improve we can discus further work-up for options in the event she stabilizes. At this time await recovery and will re-discuss if improves for options. Discussed with primary team.
[2021-03-24] MEDS: MELATONIN 3 MG TABLET PO SCH (21:52)
[2021-03-24] MEDS: ALPRAZolam 0.25 MG TAB PO SCH (21:52)
--- NOTE | 2021-03-24 23:08 | P.PN ---
Subjective Progress Note Date: 03/24/21 Patient was seen for a follow-up. Patient's daughter was also present today. Patient has been on BiPAP on and off. At this time patient is not on BiPAP machine. Denies headache or dizziness. No focal symptoms. Patient's daughter was also present, who states that patient is back to baseline. She is however short of breath. Telemetry monitoring showing atrial fibrillation. Objective - Vital Signs Vital signs: Vital Signs Temp 97.9 F 03/24/21 12:00 Pulse 60 03/24/21 13:40 Resp 29 H 03/24/21 13:40 BP 102/62 03/24/21 12:00 Pulse Ox 97 03/24/21 12:00 Intake & Output 03/23/21 03/24/21 03/24/21 18:59 06:59 18:59 Intake Total 290 240 118 Balance 290 240 118 Weight 98.883 kg Intake: Oral 290 240 118 Other: Voiding Method External Catheter External Catheter External Catheter # Voids 1 # Bowel Movements 1 - Exam Patient is alert and awake. She is short of breath, appears in mild distress. Speech and language functions are normal. Patient can name and repeat. Patient knows it is [facility] and that it is February 2020. Cranial nerves are normal. Visual brice are full, face is symmetric and tongue protrudes to the midline. Patient is hard of hearing. Shoulder shrug normal. Muscle strength is normal in the arms and legs. Patient had much less myoclonic jerks of outstretched hands. No obvious ataxia. Sensations equal. Gait not checked. No carotid bruit, S1 and S2 audible. Abdomen is soft and nontender. No organomegaly. - Labs CBC & Chem 7: 03/22/21 08:43 03/23/21 06:17 Labs: Abnormal Lab Results - Last 24 Hours (Table) 03/23/21 Range/Units 15:19 ABG pH 7.29 L (7.35-7.45) ABG pCO2 101 H* (35-45) mmHg ABG pO2 116 H (83-108) mmHg ABG HCO3 49 H* (21-25) mmol/L ABG Total CO2 52 H (19-24) mmol/L ABG O2 Saturation 98.9 H (94-97) % Microbiology - Last 24 Hours (Table) 03/22/21 11:45 Gram Stain - Preliminary Pleural Fluid Body Fluid Culture - Preliminary 03/19/21 17:25 Blood Culture - Preliminary Blood No Growth after 96 hours 03/19/21 17:40 Blood Culture - Preliminary Blood No Growth after 96 hours 03/22/21 11:45 Acid Fast Bacilli Smear - Final Pleural Fluid Acid Fast Bacilli Culture - Preliminary Assessment and Plan Assessment: * Status post stroke code. Patient's NIH stroke scale is 0. Patient has severe myoclonic jerks of outstretched hands, consistent with metabolic encephalopat hy. Her ABG revealed pH of 7.29, with pCO2 101 consistent with CO2 narcosis. Patient's condition has much improved with use of BiPAP machine. No clinical evidence of stroke. TIA less likely based upon above examination. * Right lower lobe pneumonia, * Exacerbation of CHF * Right hilar mass * Chronic Atrial fibrillation, on Eliquis, currently on hold for lung biopsy on 03/25/2021. * Hypertension * COPD on home oxygen at 3 L * Anxiety/depression * X tobacco use Plan: * Management of COPD as per IM and pulmonary medicine. * Patient's NIH stroke scale today is also 0. * 2-D echo from 03/20/2021 showed normal left-ventricular size. Moderate concentric LVH. EF is between 50-55%. Left atrium is moderately dilated. Severe aortic stenosis. Moderate mitral stenosis. Cardiology on board, aware of aortic stenosis. * Patient has atrial fibrillation, anticoagulation on hold for last 2 days. Patient currently on bridging with Lovenox 100 mg subcu every 12 hours. Resume oral intake with Eliquis, when medically cleared. Lung biopsy apparently on hold because of worsening difficulty breathing. * Carotid Doppler revealed bilateral plaque formation in the carotid arteries. The images in measurements suggest less than 50% stenosis in both ICA. Could not demonstrate flow in the left vertebral artery, which could be occluded. Antegrade flow in the right vertebral artery. * As there is no active neurological issue, we will sign off. Please reconsult neurology if any concerns. Discussed with patient's daughter in detail.
[2021-03-25] MEDS: PANTOPRAZOLE 40 MG TABLET PO SCH (06:30)
[2021-03-25] MEDS: METOPROLOL TARTRATE 25 MG TAB PO SCH ×2 (07:36→20:37)
[2021-03-25] MEDS: lisinopriL 10 MG TAB PO SCH (07:36)
[2021-03-25] MEDS: ENOXAPARIN 100 MG/ML SYRINGE SQ SCH (07:36)
[2021-03-25] MEDS: MULTIVITAMINS, THERA 1 EACH TAB PO SCH (07:36)
[2021-03-25] MEDS: ATORVASTATIN 10 MG TAB PO SCH (07:36)
[2021-03-25] MEDS: FUROSEMIDE 20 MG TAB PO SCH ×2 (07:36→15:40)
[2021-03-25] MEDS: ALPRAZolam 0.25 MG TAB PO SCH ×2 (07:36→20:37)
[2021-03-25] MEDS: PARoxetine 10 MG TAB PO SCH (07:37)
[2021-03-25] MEDS: VERAPAMIL SR 120 MG TABLET.ER PO SCH (07:37)
[2021-03-25] MEDS: OXYBUTYNIN 10 MG TAB.ER.24 PO SCH (07:37)
[2021-03-25 08:10] LABS: African American GFR (CKD) >90 (>60 ml/min/1.73 sqM); Blood Urea Nitrogen 32 mg/dL (7-17); Calcium 9.1 mg/dL (8.4-10.2); Chloride 90 mmol/L (98-107); Glucose 99 mg/dL (74-99); Non-African American GFR(CKD) 83 (>60 ml/min/1.73 sqM); Sodium 138 mmol/L (137-145)
[2021-03-25 08:16] LABS: Anion Gap 3 mmol/L
[2021-03-25 08:25] LABS: Carbon Dioxide 45 mmol/L (22-30)
--- NOTE | 2021-03-25 10:59 | P.PN ---
Subjective 80-year-old female her evaluation for altered mental status weakness found by family to be less responsive than usual. She had total bottles scattered about throat her house. Reports of any trauma or any fevers chills or sweats however she paranasal been eating and drinking as much as usual. Not as responsive as usual. Noted have tremors about the chest and hands today. 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 Labs are pending from today. Echocardiogram shows an EF of 50-55% with severe aortic stenosis, moderate mitral stenosis, mild tricuspid regurgitation. Previous echo from December 2020 shows an EF of 55-60%. Patient underwent chest ultrasound today which shows a large right pleural effusion. Pulmonary consulted. P rocalcitonin 0.09, CRP 5.7. Patient continues on IV Rocephin, by mouth Zithromax, PO Lasix BID. 03/22/2021 Patient debilitated the bedside, she is on BiPAP 50% with a saturation of 90%, blood pressure stable 152/82 respirations 22, heart rate 86, afebrile. She has some anxiety last night about her pending thoracentesis today. Patient is denying any chest pain or chest pressure today she reports no shortness of breath on BiPAP. Cardiology has cleared patient today to follow up with Dr. Thi dai outpatient. Labs today hemoglobin stable 10.7, sodium 138, potassium 4.3, chloride 93, CO2 40, BUN 30, creatinine 0.69, blood sugar 106, mag 1.8. 03/22/2021 Patient is a pleasant 80-year-old female admitted for acute hypoxic respiratory failure found to have right-sided pleural effusion patient underwent pleural tap about 2 L of serosanguineous fluid was removed. Patient's respiratory status again improved after a drainage of the pleural fluid. Patient the pleural effusion appears to be exudative. Probably malignant pleural effusion patient had a CT of the chest which is concerned needing for hilar mass. Patient respiratory status as per the patient is bit worse compared to yesterday after the pleural tap because of which I obtain an x-ray still showing some moderate pleural effusion. 03/24/2021 Patient had a respiratory decompensation yesterday patient had altered mental status code stroke was called although patient is found to have highly elevated pCO2 of 102 patient was started on BiPAP. Since code stroke was called neurology was consulted and the ordered a carotid Doppler showed some abnormality in the flow in vertebral artery. CT of the head did not show any acute stroke. It was recommended that by neurology to be resumed on anticoagulation this anti-correlation is being held for possible biopsy of the right lung mass. Considering respiratory decompensation biopsy probably will not be done during this hospitalization. Patient probably will be started on E liquis for that reason. When I evaluated the patient patient wanted to be discharged and doesn't want to continue any further treatment and just wanted to go home and . I had a lengthy discussion with the daughter regarding options of the treatment I also discussed with oncology regarding its treatment options. Even though patient cannot get the a bronchoscopy biopsy rate of a liquid biopsy can be done looking for adenocarcinoma and EGFR genes, if they are positive patient can receive biol ogic therapy with lesser side effects than chemotherapy which probably patient can tolerate it because of this reason up in a consulted oncology in the hospice and palliative care will evaluate the patient as well. Patient remains on BiPAP. Quite anxious for which patient is on Xanax does frequency of which will be increased and also on Haldol considering her age to much show benzodiazepines can lead to confusion and agitation. Subjective: 03/25/2021 This is a pleasant 80 years old female who presents with respiratory distress secondary to his diastolic CHF and dry pleural effusion, status post 2 L removed by right thoracocentesis but cytology test came back negative. Also she has severe aortic stenosis and moderate mitral stenosis and she was on Eliquis at home for her chronic A. fib. There was suspicion of right hilar mass, pulmonary team are planning for bronchoscopy. However family are discussing the possibility of hospice but there is no final decision about this year. This morning she is awake alert, she looks calm. No respiratory distress. No chest pain. Her only complaint was back pain. On examination there is no deformity or redness. Blunt examination showing clear air with no crepitation or wheezing. She was on 3 L of oxygen this morning as well. Objective - Vital Signs Vital signs: Vital Signs Temp 97.7 F 03/25/21 07:44 Pulse 79 03/25/21 07:45 Resp 19 03/25/21 07:45 BP 111/57 03/25/21 07:44 Pulse Ox 94 L 03/25/21 08:54 Intake & Output 03/24/21 03/25/21 03/25/21 18:59 06:59 18:59 Intake Total 118 Output Total 300 450 Balance -182 -450 Weight 98.883 kg Intake: Oral 118 Output: Urine 300 450 Other: Voiding Method External Catheter External Catheter External Catheter # Voids 1 2 # Bowel Movements 0 - Exam -GENERAL: The patient is alert and awake,follows commands, not in any acute distress. Well developed, well nourished. Hard of hearing HEENT: Pupils are round and equally reacting to light. EOMI. No scleral icterus. No conjunctival pallor. Normocephalic, atraumatic. No pharyngeal erythema. No thyromegaly. CARDIOVASCULAR: S1 and S2 present. No murmurs, rubs, or gallops. PULMONARY: Chest is clear to auscultation, no wheezing or crackles. ABDOMEN: Soft, nontender, nondistended, normoactive bowel sounds. No palpable organomegaly. MUSCULOSKELETAL: No joint swelling or deformity. EXTREMITIES: No cyanosis, clubbing, or pedal edema. NEUROLOGICAL: Gross neurological examination did not reveal any focal deficits. SKIN: No rashes. no petechiae. - Labs CBC & Chem 7: 03/22/21 08:43 03/25/21 06:41 Labs: Abnormal Lab Results - Last 24 Hours (Table) 03/25/21 Range/Units 06:41 Chloride 90 L (98-107) mmol/L Carbon Dioxide 45 H* (22-30) mmol/L BUN 32 H (7-17) mg/dL Microbiology - Last 24 Hours (Table) 03/22/21 11:45 Gram Stain - Preliminary Pleural Fluid Body Fluid Culture - Preliminary 03/19/21 17:25 Blood Culture - Preliminary Blood No Growth after 120 hours 03/19/21 17:40 Blood Culture - Preliminary Blood No Growth after 120 hours Assessment and Plan Assessment: Acute hypercapnic and hypoxic respiratory failure secondary to large right pleural effusion probably malignant effusion possibility of CHF exacerbation is low and possibility of pneumonia is low. Patient had thoracentesis with removal of 2 L of pleural fluid which is exudative in nature but negative for malignant cells. Right lower lobe pneumonia, -Right hilar mass will be malignancy unless otherwise proven. Oncology was consulted. Altered mental status component of toxic/metabolic encephalopathy secondary to above CO2 retention for which patient is presently on BiPAP and patient is presently alert oriented 3 patient underwent workup for stroke so far negative. Severe aortic stenosis, moderate mitral stenosis Acute on chronic congestive heart failure, diastolic dysfunction, EF 50-55% which is decreased from 55-60% from Dec Atrial Fibrillation with RVR, on eliquis, at home, presently on metoprolol and Lovenox probably can be switched back to Eliquis. COPD, not in acute exacerbation patient with no wheezing noted on exam, no cough present, 3L home O2 currently on BiPAP Hypertension hyperlipidemia Anxiety/Depression Obesity DVT prophylaxis Eliquis currently on hold GI prophylaxis Protonix Plan: This is a pleasant 80 years old female who presents with hilar mass, CHF and right pleural effusion. Continue with ceftriaxone Continue with Lovenox 100 mg twice a day and swished Eliquis after surgery Hemovac is for possible bronchoscopy. Family considering hospice Oncology team on the case as well Labs and medication were reviewed.. Continue same treatment. Continue with symptomatic treatment. Resume home medication. Monitor lytes and vitals. DVT and GI prophylaxis. Further recommendationsas per clinical course of the patient DVT prophylaxis: Subcutaneous Lovenox GI Prophylaxis: Ppi PT/OT: Pending Prognosis is guarded
[2021-03-25] MEDS: LIDOCAINE 5% PATCH TOPICAL SCH (12:19)
--- NOTE | 2021-03-25 15:31 | P.PN ---
Subjective Progress Note Date: 03/25/21 Patient still with difficlty and not candidate for further work-up Objective - Vital Signs Vital signs: Vital Signs Temp 97.6 F 03/25/21 11:51 Pulse 75 03/25/21 14:00 Resp 23 03/25/21 14:00 BP 118/75 03/25/21 11:51 Pulse Ox 98 03/25/21 11:51 Intake & Output 03/24/21 03/25/21 03/25/21 18:59 06:59 18:59 Intake Total 118 0 Output Total 300 450 Balance -182 -450 0 Weight 98.883 kg Intake: Oral 118 0 Output: Urine 300 450 Other: Voiding Method External Catheter External Catheter External Catheter # Voids 1 2 # Bowel Movements 0 - Exam Distress bipap Daughter spoke for patient Eccymosis on extremitities Diminished through all anter Exp wheezing Abd: Obese Ext: Edema - Labs CBC & Chem 7: 03/22/21 08:43 03/25/21 06:41 Labs: Abnormal Lab Results - Last 24 Hours (Table) 03/25/21 Range/Units 06:41 Chloride 90 L (98-107) mmol/L Carbon Dioxide 45 H* (22-30) mmol/L BUN 32 H (7-17) mg/dL Microbiology - Last 24 Hours (Table) 03/22/21 11:45 Anaerobic Culture - Preliminary Pleural Fluid 03/22/21 11:45 Gram Stain - Preliminary Pleural Fluid Body Fluid Culture - Preliminary 03/19/21 17:25 Blood Culture - Preliminary Blood No Growth after 120 hours 03/19/21 17:40 Blood Culture - Preliminary Blood No Growth after 120 hours Assessment and Plan (1) Right lower lobe pneumonia Narrative/Plan: Right Hilaar 5.2cm with additional adenopathy found on CT Cytology negative Unable to perform Tissue biopsy due to hypoxia and increased oxygenation need at this time Current Visit: Yes Status: Acute Code(s): J18.9 - PNEUMONIA, UNSPECIFIED ORGANISM SNOMED Code(s): 542624918 (2) Hypoxia Current Visit: No Status: Acute Code(s): R09.02 - HYPOXEMIA SNOMED Code(s): 580221886 (3) New onset a-fib Current Visit: No Status: Acute Code(s): I48.91 - UNSPECIFIED ATRIAL FIBRILLATION SNOMED Code(s): 25752126 Plan: At this time patient is not stable for biopsy, discussed with daughter and if she is to improve we can discus further work-up for options in the event she stabilizes. At this time await recovery and will re-discuss if improves for opt ions. Physician Attest: I have completed the full history and physical and agree with above dictation, dictated as a scribe
--- NOTE | 2021-03-25 15:38 | P.PN ---
Subjective Progress Note Date: 03/25/21 80-year-old white female patient with past medical history of congestive heart failure, severe aortic stenosis, mitral valve stenosis, hypertension, chronic atrial fibrillation on Eliquis, coronary artery disease, COPD and patient wears oxygen at home at 3 L, she is a former smoker, who presented to the emergency department on 03/19/2021 for evaluation of altered mental status. Brain CT was completed showing cerebral atrophy and extensive white matter changes likely related to chronic small vessel ischemia no hemorrhage. Patient's pulse ox was only 65% on room air on presentation, she was tachycardic, but she was afebrile, she tested negative for COVID-19, her chest x-ray showed mild congestive heart failure with a moderate-sized right pleural effusion, there was pulmonary congestion that was slightly increased compared to the previous chest x-ray. Her EKG showed A. fib with a rate of 110 BPM. And evidence of anterolateral infarct of undetermined age. Her laboratory analysis showed white blood cell count of 7.5, hemoglobin of 10.4, platelet count of 247, INR was 1.1, sodium is 139, potassium is 4.0, chloride is 91, CO2 is 44, B1 is 26 creatinine 0.76. LFTs were within normal limits, ammonia level was less than 9, troponin was less than 0.012, proBNP was elevated at 1740, urinalysis without sign of infection, urine drug screen showed benzodiazepines, COVID-19 PCR was negative. Patient was placed on BiPAP support with pressures of 14 and 6 and FiO2 is currently at 50%. Venous blood gas was obtained showing pH of 7.22, pCO2 of 114, and bicarbonate concentration of 47 on venous blood gas. She was started on empiric antibiotics with a combination of azithromycin and Rocephin for concern of underlying pneumonia. Cardiology consultation has been requested, and patient was given 1 dose of Lasix, and she is currently on home dose of Lasix to 20 mg twice daily. Today patient is seen on selective care unit, she is awake and alert, she is oriented 3, she denies any fever or chills at home, she does endorse cough, with no phlegm production, no complaints of chest discomfort, she is certainly much more awake and alert, answering simple questions. She will be trialed on nasal cannula On 03/22/2021 patient seen in follow-up on selective care unit, she is currently on BiPAP with pressures of 14/65-50%, she is awake and alert, answering questions appropriately, patient was given a trial on high flow nasal cannula at 5 L, and was noted to be desaturating and short of breath, she was placed back on BiPAP, tolerating BiPAP support well. No acute events overnight, denies any chest discomfort, her chest x-ray on admission showed a large right-sided pleural effusion, and consideration was given to possibility of parapneumonic pleural effusion, and patient may have a component of chronic CHF exacerbation as well in view of valvular heart disease. Today's labs have been reviewed, white blood cell count is 9.6, hemoglobin is 10.7, sodium is 1:30, potassium is 4.3, chloride is 93, CO2 is 40, B1 is 30, creatinine 0.69, 2 pro-calcitonin levels were negative at 0.09, and 0.07 making possibility of bacterial pneumonia less likely. Patient had a right-sided thoracentesis at the bedside by Dr. Fournier, tolerated procedure very well, nearly 2 L of thin serosanguineous fluid removed with the procedure and fluid was sent for analysis. Postprocedure chest x-ray showed interval reduction in the amount of pleural fluid on the right postthoracentesis no sizable pneumothorax. On 03/23/2021 patient seen in follow-up on selective care unit. Yesterday she had a right-sided thoracentesis with removal of 2 L of blood-tinged fluid which was sent for analysis. Pleural fluid analysis reveals exudative fluid, cytology still pending, cultures are pending, no growth on the Gram stain so far. No fever or chills overnight, vital signs have been stable, patient is currently on 3 L of oxygen pulse ox is 98%. She had episode of confusion this morning, her daughter was called to the bedside. Otherwise no acute events overnight, no worsening dyspnea, she continues on Lasix 20 mg by mouth twice daily, she is on antibiotics in the form of Rocephin. Waiting final pleural fluid cultures, pro- calcitonin level was low. CT of the chest has been reviewed showing suspected right hilar mass versus underlying adenopathy with the recommendation of bronchoscopic evaluation and/or PET scan. Narrowing of the right lower lobe bronchus with right lower lobe collapse, small right-sided pleural effusion. Mild mediastinal adenopathy. On 03/24/2021 patient seen in follow-up on selective care unit. Yesterday patient had a change in her mental status, she was found to be more lethargic, and family thought her speech was slurred, and patient was told to verbally respond. Patient was thought to be hypercapnic, and she was placed on BiPAP support and blood gas was obtained shortly after BiPAP support was applied affirming acute on chronic hypercapnic respiratory failure. PO2 was 116, pCO2 was 101, a pH of 7.29, and this was done and FiO2 of 50% and BiPAP 14 and 6. T angelo she seen in follow-up, she was seen by neurology in consultation. Her NIH stroke scale was 0 at the time of mental status changes and old stroke, no brain CT was recommended. Carotid Doppler showed bilateral plaque formation in the carotid arteries, and images in measurements suggest less than 50% stenosis bilaterally. Today patient seems to be more awake, she is able to respond to simple questions, she remains on BiPAP support today, her daughter thinks her speech has improved. Neurology evaluated the patient, and patient had been off her anticoagulation for history of atrial fibrillation for 2 days prior to right-sided thoracentesis, at this time they are recommended to continue with anticoagulation in view of her neurological symptoms and chronic A. fib. She is also on BiPAP support most of the time, we discussed recent clinical changes in her condition with her daughter and at this time bronchoscopy with biopsies will be postponed. The patient is seen today 03/25/2021 in follow-up on the selective care unit. She is currently resting in bed. Currently on BiPAP 14/6 and 35% FiO2 with O2 saturations in the 90s. When she is off the BiPAP she is doing well on just 3 L nasal cannula. She does have some element of anxiety. 0.9 normal saline at 20 ML's per hour. No residual neurologic symptoms today. She is continued on Lovenox 100 mg subcu every 12 hours. She remains on antibiotics in the form of ceftriaxone. Blood cultures revealed no growth. Pleural fluid cultures reveal no growth. Cytology negative for malignancy. Objective - Vital Signs Vital signs: Vital Signs Temp 97.6 F 03/25/21 11:51 Pulse 75 03/25/21 14:00 Resp 23 03/25/21 14:00 BP 118/75 03/25/21 11:51 Pulse Ox 98 03/25/21 11:51 Intake & Output 03/24/21 03/25/21 03/25/21 18:59 06:59 18:59 Intake Total 118 0 Output Total 300 450 Balance -182 -450 0 Weight 98.883 kg Intake: Oral 118 0 Output: Urine 300 450 Other: Voiding Method External Catheter External Catheter External Catheter # Voids 1 2 # Bowel Movements 0 - Exam GENERAL EXAM: Alert, very pleasant, 80-year-old female patient, answering simple questions, currently on BiPAP support with pressures of 14 and 6, and FiO2 35%. HEAD: Normocephalic/atraumatic. EYES: Normal reaction of pupils, equal size. Conjunctiva pink, sclera white. NOSE: Clear with pink turbinates. THROAT: No erythema or exudates. NECK: No masses, no JVD, no thyroid enlargement, no adenopathy. CHEST: No chest wall deformity. Symmetrical expansion. LUNGS: Equal air entry with diminished breath sounds at the bases, right greater than left CVS: Irregular rate and rhythm, normal S1 and S2, no gallops, no murmurs, no rubs ABDOMEN: Soft, nontender. No hepatosplenomegaly, normal bowel sounds, no guarding or rigidity. EXTREMITIES: No clubbing, no edema, no cyanosis, 2+ pulses and upper and lower extremities. MUSCULOSKELETAL: Muscle strength and tone normal. SPINE: No scoliosis or deformity SKIN: No rashes CENTRAL NERVOUS SYSTEM: No focal deficits, tone is normal in all 4 extremities. PSYCHIATRIC: Alert and oriented -3. Appropriate affect. Intact judgment and insight. - Labs CBC & Chem 7: 03/22/21 08:43 03/25/21 06:41 Labs: Abnormal Lab Results - Last 24 Hours (Table) 03/25/21 Range/Units 06:41 Chloride 90 L (98-107) mmol/L Carbon Dioxide 45 H* (22-30) mmol/L BUN 32 H (7-17) mg/dL Microbiology - Last 24 Hours (Table) 03/22/21 11:45 Anaerobic Culture - Preliminary Pleural Fluid 03/22/21 11:45 Gram Stain - Preliminary Pleural Fluid Body Fluid Culture - Preliminary 03/19/21 17:25 Blood Culture - Preliminary Blood No Growth after 120 hours 03/19/21 17:40 Blood Culture - Preliminary Blood No Growth after 120 hours Assessment and Plan Assessment: 1 Acute on chronic hypoxic and hypercapnic respiratory failure related to acute exacerbation of CHF with diastolic dysfunction and possibility of right lower lobe pneumonia, possibly community-acquired with a large right-sided pleural effusion. COVID-19 PCR was negative patient was placed on BiPAP support in the emergency department, mentation and oxygenation have improved. Ultrasound of the chest showed 12.5 cm right pleural effusion, and Right sided thoracentesis was completed on 03/22/2021 2 Large right pleural effusion, possibly parapneumonic, or possibly malignant, S/P right-sided thoracentesis on 03/22/2021 with removal of 2 L of serosanguineous pleural fluid which was sent for cytology, urinalysis, and cultures. 2 sets of Procalcitonin level were negative making possibility of underlying bacterial infection less likely. Pleural fluid analysis revealed exudative fluid, cytology was negative and cultures are still pending, no growth on the Gram stain 3 Suspected right hilar mass, narrowing of the right lower lobe bronchus and right lower lobe collapse. Bronchoscopy scheduled for today was canceled 4 Altered mental status possibly related to pneumonia and sepsis and acute on chronic hypercapnic respiratory failure, improved. Brain CT showed no acute intracranial findings 5 History of diastolic CHF with severe aortic stenosis and mitral valve stenosis 6 Chronic A. fib on Eliquis 7 Hypertension 8 History of COPD on home oxygen at 3 L 9 Anxiety/depression 10 Former smoker Plan: The patient was seen and evaluated Currently awake and alert Resting comfortably on BiPAP No plans for biopsies this admission She could be resumed back on her Eliquis Dr. Fournier spoke with the patient's daughter who is at the bedside Possibly outpatient PET scan She may not consider treatment if found to be cancer They are still deciding about hospice I, the cosigning physician, performed a history & physical examination of the patient. Lungs sounds diminished in the right lung base. Maintaining good O2 saturations in the 90s on BiPAP at 35% FiO2. I discussed the assessment and plan of care with my nurse practitioner, Pooja Beyer. I attest to the above note as dictated by her.
[2021-03-25] MEDS: HALOPERIDOL LACTATE 5 MG/ML 1 ML VIAL IVP PRN (17:37)
[2021-03-25] MEDS: MELATONIN 3 MG TABLET PO SCH (20:37)
[2021-03-25] MEDS: APIXABAN 5 MG TAB PO SCH (20:37)
[2021-03-26] MEDS: PANTOPRAZOLE 40 MG TABLET PO SCH (06:21)
[2021-03-26] MEDS: ATORVASTATIN 10 MG TAB PO SCH (09:02)
[2021-03-26] MEDS: METOPROLOL TARTRATE 25 MG TAB PO SCH ×2 (09:02→20:31)
[2021-03-26] MEDS: ALPRAZolam 0.25 MG TAB PO SCH ×2 (09:02→20:31)
[2021-03-26] MEDS: MULTIVITAMINS, THERA 1 EACH TAB PO SCH (09:03)
[2021-03-26] MEDS: lisinopriL 10 MG TAB PO SCH (09:03)
[2021-03-26] MEDS: FUROSEMIDE 20 MG TAB PO SCH ×2 (09:03→16:55)
[2021-03-26] MEDS: APIXABAN 5 MG TAB PO SCH ×2 (09:03→20:31)
[2021-03-26] MEDS: PARoxetine 10 MG TAB PO SCH (09:04)
[2021-03-26] MEDS: LIDOCAINE 5% PATCH TOPICAL SCH ×2 (09:04→09:05)
[2021-03-26] MEDS: VERAPAMIL SR 120 MG TABLET.ER PO SCH (09:04)
[2021-03-26] MEDS: OXYBUTYNIN 10 MG TAB.ER.24 PO SCH (09:04)
--- NOTE | 2021-03-26 09:39 | P.PN ---
Subjective Progress Note Date: 03/25/21 Patient was seen for a follow-up. Patient is sleeping with BiPAP on. I spoke to patient's nurse, who states the patient has been neurologically intact. No deficits. She does get slightly confused, but otherwise moving all 4 extremities. No concerns raised by the family either. Patient's labs were reviewed. Sodium 138 potassium 4.0, BUN 32, creatinine 0.65.. Chest x-ray from 03/24/2021 showed stable abnormal findings. Objective - Vital Signs Vital signs: Vital Signs Temp 97.6 F 03/26/21 04:00 Pulse 97 03/26/21 04:00 Resp 59 H 03/26/21 04:00 BP 113/65 03/26/21 04:00 Pulse Ox 97 03/26/21 04:00 Intake & Output 03/25/21 03/26/21 03/26/21 18:59 06:59 18:59 Intake Total 0 200 118 Output Total 450 Balance -450 200 118 Weight 99.5 kg Intake: Oral 0 200 118 Output: Urine 450 Other: Voiding Method External Catheter External Catheter # Voids 1 1 # Bowel Movements 1 1 - Exam 03/25/2021: Patient is sleeping with BiPAP on. Appears quite comfortable. I did not wake up the patient. 03/24/2021: Patient is alert and awake. She is short of breath, appears in mild distress. Speech and language functions are normal. Patient can name and repeat. Patient knows it is [facility] and that it is February 2020. Cranial nerves are normal. Visual brice are full, face is symmetric and tongue protrudes to the midline. Patient is hard of hearing. Shoulder shrug normal. Muscle strength is normal in the arms and legs. Patient had much less myoclonic jerks of outstretched hands. No obvious ataxia. Sensations equal. Gait not checked. No carotid bruit, S1 and S2 audible. Abdomen is soft and nontender. No organomegaly. - Labs CBC & Chem 7: 03/22/21 08:43 03/25/21 06:41 Labs: Microbiology - Last 24 Hours (Table) 03/19/21 17:25 Blood Culture - Final Blood No Growth after 144 hours 03/19/21 17:40 Blood Culture - Final Blood No Growth after 144 hours 03/22/21 11:45 Anaerobic Culture - Preliminary Pleural Fluid 03/22/21 11:45 Gram Stain - Preliminary Pleural Fluid Body Fluid Culture - Preliminary Assessment and Plan Assessment: * Status post stroke code. Patient's NIH stroke scale is 0. Patient has severe myoclonic jerks of outstretched hands, consistent with metabolic encephalopathy. Her ABG revealed pH of 7.29, with pCO2 101 consistent with CO2 narcosis. Patient's condition has much improved with use of BiPAP machine. No clinical evidence of stroke. TIA less likely based upon above examination. * Right lower lobe pneumonia, * Exacerbation of CHF * Right hilar mass * Chronic Atrial fibrillation, on Eliquis, currently on hold for lung biopsy on 03/25/2021. * Hypertension * COPD on home oxygen at 3 L * Anxiety/depression * X tobacco use Plan: * Management of COPD as per IM and pulmonary medicine. * 2-D echo from 03/20/2021 showed normal left-ventricular size. Moderate concentric LVH. EF is between 50-55%. Left atrium is moderately dilated. Severe aortic stenosis. Moderate mitral stenosis. Cardiology on board, aware of aortic stenosis. * Patient has atrial fibrillation, anticoagulation on hold for last 2 days. Patient currently on bridging with Lovenox 100 mg subcu every 12 hours. Resu me Eliquis, when medically cleared. Lung biopsy apparently on hold because of worsening difficulty breathing. * Carotid Doppler revealed bilateral plaque formation in the carotid arteries. The images in measurements suggest less than 50% stenosis in both ICA. Could not demonstrate flow in the left vertebral artery, which could be occluded. Antegrade flow in the right vertebral artery. * As there is no active neurological issue, we will sign off. Please reconsult neurology if any concerns.
--- NOTE | 2021-03-26 14:33 | P.PN ---
Subjective 80-year-old female her evaluation for altered mental status weakness found by family to be less responsive than usual. She had total bottles scattered about throat her house. Reports of any trauma or any fevers chills or sweats however she paranasal been eating and drinking as much as usual. Not as responsive as usual. Noted have tremors about the chest and hands today. 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 Labs are pending from today. Echocardiogram shows an EF of 50-55% with severe aortic stenosis, moderate mitral stenosis, mild tricuspid regurgitation. Previous echo from December 2020 shows an EF of 55-60%. Patient underwent chest ultrasound today which shows a large right pleural effusion. Pulmonary consulted. P rocalcitonin 0.09, CRP 5.7. Patient continues on IV Rocephin, by mouth Zithromax, PO Lasix BID. 03/22/2021 Patient debilitated the bedside, she is on BiPAP 50% with a saturation of 90%, blood pressure stable 152/82 respirations 22, heart rate 86, afebrile. She has some anxiety last night about her pending thoracentesis today. Patient is denying any chest pain or chest pressure today she reports no shortness of breath on BiPAP. Cardiology has cleared patient today to follow up with Dr. Thi dai outpatient. Labs today hemoglobin stable 10.7, sodium 138, potassium 4.3, chloride 93, CO2 40, BUN 30, creatinine 0.69, blood sugar 106, mag 1.8. 03/22/2021 Patient is a pleasant 80-year-old female admitted for acute hypoxic respiratory failure found to have right-sided pleural effusion patient underwent pleural tap about 2 L of serosanguineous fluid was removed. Patient's respiratory status again improved after a drainage of the pleural fluid. Patient the pleural effusion appears to be exudative. Probably malignant pleural effusion patient had a CT of the chest which is concerned needing for hilar mass. Patient respiratory status as per the patient is bit worse compared to yesterday after the pleural tap because of which I obtain an x-ray still showing some moderate pleural effusion. 03/24/2021 Patient had a respiratory decompensation yesterday patient had altered mental status code stroke was called although patient is found to have highly elevated pCO2 of 102 patient was started on BiPAP. Since code stroke was called neurology was consulted and the ordered a carotid Doppler showed some abnormality in the flow in vertebral artery. CT of the head did not show any acute stroke. It was recommended that by neurology to be resumed on anticoagulation this anti-correlation is being held for possible biopsy of the right lung mass. Considering respiratory decompensation biopsy probably will not be done during this hospitalization. Patient probably will be started on E liquis for that reason. When I evaluated the patient patient wanted to be discharged and doesn't want to continue any further treatment and just wanted to go home and . I had a lengthy discussion with the daughter regarding options of the treatment I also discussed with oncology regarding its treatment options. Even though patient cannot get the a bronchoscopy biopsy rate of a liquid biopsy can be done looking for adenocarcinoma and EGFR genes, if they are positive patient can receive biol ogic therapy with lesser side effects than chemotherapy which probably patient can tolerate it because of this reason up in a consulted oncology in the hospice and palliative care will evaluate the patient as well. Patient remains on BiPAP. Quite anxious for which patient is on Xanax does frequency of which will be increased and also on Haldol considering her age to much show benzodiazepines can lead to confusion and agitation. Subjective: 03/25/2021 This is a pleasant 80 years old female who presents with respiratory distress secondary to his diastolic CHF and dry pleural effusion, status post 2 L removed by right thoracocentesis but cytology test came back negative. Also she has severe aortic stenosis and moderate mitral stenosis and she was on Eliquis at home for her chronic A. fib. There was suspicion of right hilar mass, pulmonary team are planning for bronchoscopy. However family are discussing the possibility of hospice but there is no final decision about this year. This morning she is awake alert, she looks calm. No respiratory distress. No chest pain. Her only complaint was back pain. On examination there is no deformity or redness. Blunt examination showing clear air with no crepitation or wheezing. She was on 3 L of oxygen this morning as well. 03/26/2021 Patient is more awake today however she still lethargic and she still short of breath although she can answer questions appropriately, she still on 3 L oxygen and also she still needs BiPAP at times like this afternoon. No chest pain. Hemodynamically stable. Pulmonary team counseled bronchoscopy as she is not stable enough because of her breathing pattern She remains on ceftriaxone Start her on Eliquis home dose of 5 mg. Stop Lovenox Objective - Vital Signs Vital signs: Vital Signs Temp 98.1 F 03/26/21 11:39 Pulse 76 03/26/21 11:39 Resp 20 03/26/21 11:39 BP 104/69 03/26/21 11:39 Pulse Ox 100 03/26/21 11:39 Intake & Output 03/25/21 03/26/21 03/26/21 18:59 06:59 18:59 Intake Total 0 200 118 Output Total 450 325 Balance -450 200 -207 Weight 99.5 kg Intake: Oral 0 200 118 Output: Urine 450 325 Other: Voiding Method External Catheter External Catheter External Catheter # Voids 1 1 # Bowel Movements 1 1 - Exam -GENERAL: The patient is alert and awake,follows commands, not in any acute distress. Well developed, well nourished. Hard of hearing HEENT: Pupils are round and equally reacting to light. EOMI. No scleral icterus. No conjunctival pallor. Normocephalic, atraumatic. No pharyngeal erythema. No thyromegaly. CARDIOVASCULAR: S1 and S2 present. No murmurs, rubs, or gallops. PULMONARY: Chest is clear to auscultation, no wheezing or crackles. ABDOMEN: Soft, nontender, nondistended, normoactive bowel sounds. No palpable organomegaly. MUSCULOSKELETAL: No joint swelling or deformity. EXTREMITIES: No cyanosis, clubbing, or pedal edema. NEUROLOGICAL: Gross neurological examination did not reveal any focal deficits. SKIN: No rashes. no petechiae. - Labs CBC & Chem 7: 03/22/21 08:43 03/25/21 06:41 Labs: Microbiology - Last 24 Hours (Table) 03/22/21 11:45 Gram Stain - Final Pleural Fluid Body Fluid Culture - Final 03/19/21 17:25 Blood Culture - Final Blood No Growth after 144 hours 03/19/21 17:40 Blood Culture - Final Blood No Growth after 144 hours 03/22/21 11:45 Anaerobic Culture - Preliminary Pleural Fluid Assessment and Plan Assessment: Acute hypercapnic and hypoxic respiratory failure secondary to large right pleur al effusion probably malignant effusion possibility of CHF exacerbation is low and possibility of pneumonia is low. Patient had thoracentesis with removal of 2 L of pleural fluid which is exudative in nature but negative for malignant cells. Right lower lobe pneumonia, -Right hilar mass will be malignancy unless otherwise proven. Oncology was consulted. Altered mental status component of toxic/metabolic encephalopathy secondary to above CO2 retention for which patient is presently on BiPAP and patient is presently alert oriented 3 patient underwent workup for stroke so far negative. Severe aortic stenosis, moderate mitral stenosis Acute on chronic congestive heart failure, diastolic dysfunction, EF 50-55% which is decreased from 55-60% from Dec Atrial Fibrillation with RVR, on eliquis, at home, presently on metoprolol and Lovenox probably can be switched back to Eliquis. COPD, not in acute exacerbation patient with no wheezing noted on exam, no cough present, 3L home O2 currently on BiPAP Hypertension hyperlipidemia Anxiety/Depression Obesity DVT prophylaxis Eliquis currently on hold GI prophylaxis Protonix Plan: This is a pleasant 80 years old female who presents with hilar mass, CHF and right pleural effusion. Continue with ceftriaxone Resume Eliquis as there is no bronchoscopy was canceled Family considering hospice Oncology team on the case as well Labs and medication were reviewed.. Continue same treatment. Continue with symptomatic treatment. Resume home medication. Monitor lytes and vitals. DVT and GI prophylaxis. Further recommendationsas per clinical course of the patient DVT prophylaxis: Eliquis GI Prophylaxis: Ppi PT/OT: Pending Prognosis is guarded
--- NOTE | 2021-03-26 15:58 | P.PN ---
Subjective Progress Note Date: 03/26/21 80-year-old white female patient with past medical history of congestive heart failure, severe aortic stenosis, mitral valve stenosis, hypertension, chronic atrial fibrillation on Eliquis, coronary artery disease, COPD and patient wears oxygen at home at 3 L, she is a former smoker, who presented to the emergency department on 03/19/2021 for evaluation of altered mental status. Brain CT was completed showing cerebral atrophy and extensive white matter changes likely related to chronic small vessel ischemia no hemorrhage. Patient's pulse ox was only 65% on room air on presentation, she was tachycardic, but she was afebrile, she tested negative for COVID-19, her chest x-ray showed mild congestive heart failure with a moderate-sized right pleural effusion, there was pulmonary congestion that was slightly increased compared to the previous chest x-ray. Her EKG showed A. fib with a rate of 110 BPM. And evidence of anterolateral infarct of undetermined age. Her laboratory analysis showed white blood cell count of 7.5, hemoglobin of 10.4, platelet count of 247, INR was 1.1, sodium is 139, potassium is 4.0, chloride is 91, CO2 is 44, B1 is 26 creatinine 0.76. LFTs were within normal limits, ammonia level was less than 9, troponin was less than 0.012, proBNP was elevated at 1740, urinalysis without sign of infection, urine drug screen showed benzodiazepines, COVID-19 PCR was negative. Patient was placed on BiPAP support with pressures of 14 and 6 and FiO2 is currently at 50%. Venous blood gas was obtained showing pH of 7.22, pCO2 of 114, and bicarbonate concentration of 47 on venous blood gas. She was started on empiric antibiotics with a combination of azithromycin and Rocephin for concern of underlying pneumonia. Cardiology consultation has been requested, and patient was given 1 dose of Lasix, and she is currently on home dose of Lasix to 20 mg twice daily. Today patient is seen on selective care unit, she is awake and alert, she is oriented 3, she denies any fever or chills at home, she does endorse cough, with no phlegm production, no complaints of chest discomfort, she is certainly much more awake and alert, answering simple questions. She will be trialed on nasal cannula On 03/22/2021 patient seen in follow-up on selective care unit, she is currently on BiPAP with pressures of 14/65-50%, she is awake and alert, answering questions appropriately, patient was given a trial on high flow nasal cannula at 5 L, and was noted to be desaturating and short of breath, she was placed back on BiPAP, tolerating BiPAP support well. No acute events overnight, denies any chest discomfort, her chest x-ray on admission showed a large right-sided pleural effusion, and consideration was given to possibility of parapneumonic pleural effusion, and patient may have a component of chronic CHF exacerbation as well in view of valvular heart disease. Today's labs have been reviewed, white blood cell count is 9.6, hemoglobin is 10.7, sodium is 1:30, potassium is 4.3, chloride is 93, CO2 is 40, B1 is 30, creatinine 0.69, 2 pro-calcitonin levels were negative at 0.09, and 0.07 making possibility of bacterial pneumonia less likely. Patient had a right-sided thoracentesis at the bedside by Dr. Fournier, tolerated procedure very well, nearly 2 L of thin serosanguineous fluid removed with the procedure and fluid was sent for analysis. Postprocedure chest x-ray showed interval reduction in the amount of pleural fluid on the right postthoracentesis no sizable pneumothorax. On 03/23/2021 patient seen in follow-up on selective care unit. Yesterday she had a right-sided thoracentesis with removal of 2 L of blood-tinged fluid which was sent for analysis. Pleural fluid analysis reveals exudative fluid, cytology still pending, cultures are pending, no growth on the Gram stain so far. No fever or chills overnight, vital signs have been stable, patient is currently on 3 L of oxygen pulse ox is 98%. She had episode of confusion this morning, her daughter was called to the bedside. Otherwise no acute events overnight, no worsening dyspnea, she continues on Lasix 20 mg by mouth twice daily, she is on antibiotics in the form of Rocephin. Waiting final pleural fluid cultures, pro- calcitonin level was low. CT of the chest has been reviewed showing suspected right hilar mass versus underlying adenopathy with the recommendation of bronchoscopic evaluation and/or PET scan. Narrowing of the right lower lobe bronchus with right lower lobe collapse, small right-sided pleural effusion. Mild mediastinal adenopathy. On 03/24/2021 patient seen in follow-up on selective care unit. Yesterday patient had a change in her mental status, she was found to be more lethargic, and family thought her speech was slurred, and patient was told to verbally respond. Patient was thought to be hypercapnic, and she was placed on BiPAP support and blood gas was obtained shortly after BiPAP support was applied affirming acute on chronic hypercapnic respiratory failure. PO2 was 116, pCO2 was 101, a pH of 7.29, and this was done and FiO2 of 50% and BiPAP 14 and 6. T angelo she seen in follow-up, she was seen by neurology in consultation. Her NIH stroke scale was 0 at the time of mental status changes and old stroke, no brain CT was recommended. Carotid Doppler showed bilateral plaque formation in the carotid arteries, and images in measurements suggest less than 50% stenosis bilaterally. Today patient seems to be more awake, she is able to respond to simple questions, she remains on BiPAP support today, her daughter thinks her speech has improved. Neurology evaluated the patient, and patient had been off her anticoagulation for history of atrial fibrillation for 2 days prior to right-sided thoracentesis, at this time they are recommended to continue with anticoagulation in view of her neurological symptoms and chronic A. fib. She is also on BiPAP support most of the time, we discussed recent clinical changes in her condition with her daughter and at this time bronchoscopy with biopsies will be postponed. The patient is seen today 03/25/2021 in follow-up on the selective care unit. She is currently resting in bed. Currently on BiPAP 14/6 and 35% FiO2 with O2 saturations in the 90s. When she is off the BiPAP she is doing well on just 3 L nasal cannula. She does have some element of anxiety. 0.9 normal saline at 20 ML's per hour. No residual neurologic symptoms today. She is continued on Lovenox 100 mg subcu every 12 hours. She remains on antibiotics in the form of ceftriaxone. Blood cultures revealed no growth. Pleural fluid cultures reveal no growth. Cytology negative for malignancy. The patient is seen today 03/26/2021 in follow-up on the selective care unit. She is currently awake and alert in no acute distress. DuoNeb bit better today compared to yesterday. She remains on BiPAP 14/6 and 35% FiO2. She has normal saline running at KVO. Daughter is at the bedside. She is continued on Eliquis, antibiotics in form of ceftriaxone. Oral diuretics. Objective - Vital Signs Vital signs: Vital Signs Temp 98.1 F 03/26/21 11:39 Pulse 76 03/26/21 11:39 Resp 20 03/26/21 11:39 BP 104/69 03/26/21 11:39 Pulse Ox 100 03/26/21 11:39 Intake & Output 03/25/21 03/26/21 03/26/21 18:59 06:59 18:59 Intake Total 0 200 236 Output Total 450 325 Balance -450 200 -89 Weight 99.5 kg Intake: Oral 0 200 236 Output: Urine 450 325 Other: Voiding Method External Catheter External Catheter External Catheter # Voids 1 1 # Bowel Movements 1 1 - Exam GENERAL EXAM: Alert, very pleasant, 80-year-old female patient, answering simple questions, currently on BiPAP support with pressures of 14 and 6, and FiO2 35%. HEAD: Normocephalic/atraumatic. EYES: Normal reaction of pupils, equal size. Conjunctiva pink, sclera white. NOSE: Clear with pink turbinates. THROAT: No erythema or exudates. NECK: No masses, no JVD, no thyroid enlargement, no adenopathy. CHEST: No chest wall deformity. Symmetrical expansion. LUNGS: Equal air entry with diminished breath sounds at the bases, right greater than left CVS: Irregular rate and rhythm, normal S1 and S2, no gallops, no murmurs, no rubs ABDOMEN: Soft, nontender. No hepatosplenomegaly, normal bowel sounds, no guarding or rigidity. EXTREMITIES: No clubbing, no edema, no cyanosis, 2+ pulses and upper and lower extremities. MUSCULOSKELETAL: Muscle strength and tone normal. SPINE: No scoliosis or deformity SKIN: No rashes CENTRAL NERVOUS SYSTEM: No focal deficits, tone is normal in all 4 extremities. PSYCHIATRIC: Alert and oriented -3. Appropriate affect. Intact judgment and insight. - Labs CBC & Chem 7: 03/22/21 08:43 03/25/21 06:41 Labs: Microbiology - Last 24 Hours (Table) 03/22/21 11:45 Anaerobic Culture - Final Pleural Fluid 03/22/21 11:45 Gram Stain - Final Pleural Fluid Body Fluid Culture - Final 03/19/21 17:25 Blood Culture - Final Blood No Growth after 144 hours 03/19/21 17:40 Blood Culture - Final Blood No Growth after 144 hours Assessment and Plan Assessment: 1 Acute on chronic hypoxic and hypercapnic respiratory failure related to acute exacerbation of CHF with diastolic dysfunction and possibility of right lower lobe pneumonia, possibly community-acquired with a large right-sided pleural effusion. COVID-19 PCR was negative patient was placed on BiPAP support in the emergency department, mentation and oxygenation have improved. Ultrasound of the chest showed 12.5 cm right pleural effusion, and Right sided thoracentesis was completed on 03/22/2021 cultures are revealing no growth . Cytology negative for malignancy. 2 Large right pleural effusion, possibly parapneumonic, or possibly malignant, S/P right-sided thoracentesis on 03/22/2021 with removal of 2 L of serosanguineous pleural fluid which was sent for cytology, urinalysis, and cultures. 2 sets of Procalcitonin level were negative making possibility of underlying bacterial infection less likely. Pleural fluid analysis revealed exudative fluid, cytology was negative and cultures are still pending, no growth on the Gram stain 3 Suspected right hilar mass, narrowing of the right lower lobe bronchus and right lower lobe collapse. Bronchoscopy scheduled for today was canceled 4 Altered mental status possibly related to pneumonia and sepsis and acute on chronic hypercapnic respiratory failure, improved. Brain CT showed no acute intracranial findings 5 History of diastolic CHF with severe aortic stenosis and mitral valve stenosis 6 Chronic A. fib on Eliquis 7 Hypertension 8 History of COPD on home oxygen at 3 L 9 Anxiety/depression 10 Former smoker Plan: Currently awake and alert Resting comfortably on BiPAP No plans for biopsies this admission Possibly outpatient PET scan She may not consider treatment if found to be cancer They are still deciding about hospice I, the cosigning physician, performed a history & physical examination of the patient. Lungs sounds diminished in the right lung base. Maintaining good O2 saturations in the 90s on BiPAP at 35% FiO2. I discussed the assessment and plan of care with my nurse practitioner, Pooja Beyer. I attest to the above note as dictated by her.
[2021-03-26] MEDS: MELATONIN 3 MG TABLET PO SCH (20:31)
[2021-03-26] MEDS: HALOPERIDOL LACTATE 5 MG/ML 1 ML VIAL IVP PRN (22:53)
[2021-03-27] MEDS: PANTOPRAZOLE 40 MG TABLET PO SCH (06:24)
[2021-03-27] MEDS: MULTIVITAMINS, THERA 1 EACH TAB PO SCH (08:24)
[2021-03-27] MEDS: ALPRAZolam 0.25 MG TAB PO SCH ×2 (08:24→21:27)
[2021-03-27] MEDS: APIXABAN 5 MG TAB PO SCH ×2 (08:25→21:27)
[2021-03-27] MEDS: FUROSEMIDE 20 MG TAB PO SCH ×2 (08:25→17:05)
[2021-03-27] MEDS: LIDOCAINE 5% PATCH TOPICAL SCH (08:25)
[2021-03-27] MEDS: ATORVASTATIN 10 MG TAB PO SCH (08:25)
[2021-03-27] MEDS: METOPROLOL TARTRATE 25 MG TAB PO SCH ×2 (08:25→21:27)
[2021-03-27] MEDS: OXYBUTYNIN 10 MG TAB.ER.24 PO SCH (08:26)
[2021-03-27] MEDS: PARoxetine 10 MG TAB PO SCH (08:26)
[2021-03-27] MEDS: VERAPAMIL SR 120 MG TABLET.ER PO SCH (08:26)
[2021-03-27] MEDS: lisinopriL 10 MG TAB PO SCH (11:54)
--- NOTE | 2021-03-27 11:57 | P.PN ---
Subjective 80-year-old female her evaluation for altered mental status weakness found by family to be less responsive than usual. She had total bottles scattered about throat her house. Reports of any trauma or any fevers chills or sweats however she paranasal been eating and drinking as much as usual. Not as responsive as usual. Noted have tremors about the chest and hands today. 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 Labs are pending from today. Echocardiogram shows an EF of 50-55% with severe aortic stenosis, moderate mitral stenosis, mild tricuspid regurgitation. Previous echo from December 2020 shows an EF of 55-60%. Patient underwent chest ultrasound today which shows a large right pleural effusion. Pulmonary consulted. P rocalcitonin 0.09, CRP 5.7. Patient continues on IV Rocephin, by mouth Zithromax, PO Lasix BID. 03/22/2021 Patient debilitated the bedside, she is on BiPAP 50% with a saturation of 90%, blood pressure stable 152/82 respirations 22, heart rate 86, afebrile. She has some anxiety last night about her pending thoracentesis today. Patient is denying any chest pain or chest pressure today she reports no shortness of breath on BiPAP. Cardiology has cleared patient today to follow up with Dr. Thi dai outpatient. Labs today hemoglobin stable 10.7, sodium 138, potassium 4.3, chloride 93, CO2 40, BUN 30, creatinine 0.69, blood sugar 106, mag 1.8. 03/22/2021 Patient is a pleasant 80-year-old female admitted for acute hypoxic respiratory failure found to have right-sided pleural effusion patient underwent pleural tap about 2 L of serosanguineous fluid was removed. Patient's respiratory status again improved after a drainage of the pleural fluid. Patient the pleural effusion appears to be exudative. Probably malignant pleural effusion patient had a CT of the chest which is concerned needing for hilar mass. Patient respiratory status as per the patient is bit worse compared to yesterday after the pleural tap because of which I obtain an x-ray still showing some moderate pleural effusion. 03/24/2021 Patient had a respiratory decompensation yesterday patient had altered mental status code stroke was called although patient is found to have highly elevated pCO2 of 102 patient was started on BiPAP. Since code stroke was called neurology was consulted and the ordered a carotid Doppler showed some abnormality in the flow in vertebral artery. CT of the head did not show any acute stroke. It was recommended that by neurology to be resumed on anticoagulation this anti-correlation is being held for possible biopsy of the right lung mass. Considering respiratory decompensation biopsy probably will not be done during this hospitalization. Patient probably will be started on E liquis for that reason. When I evaluated the patient patient wanted to be discharged and doesn't want to continue any further treatment and just wanted to go home and . I had a lengthy discussion with the daughter regarding options of the treatment I also discussed with oncology regarding its treatment options. Even though patient cannot get the a bronchoscopy biopsy rate of a liquid biopsy can be done looking for adenocarcinoma and EGFR genes, if they are positive patient can receive biol ogic therapy with lesser side effects than chemotherapy which probably patient can tolerate it because of this reason up in a consulted oncology in the hospice and palliative care will evaluate the patient as well. Patient remains on BiPAP. Quite anxious for which patient is on Xanax does frequency of which will be increased and also on Haldol considering her age to much show benzodiazepines can lead to confusion and agitation. Subjective: 03/25/2021 This is a pleasant 80 years old female who presents with respiratory distress secondary to his diastolic CHF and dry pleural effusion, status post 2 L removed by right thoracocentesis but cytology test came back negative. Also she has severe aortic stenosis and moderate mitral stenosis and she was on Eliquis at home for her chronic A. fib. There was suspicion of right hilar mass, pulmonary team are planning for bronchoscopy. However family are discussing the possibility of hospice but there is no final decision about this year. This morning she is awake alert, she looks calm. No respiratory distress. No chest pain. Her only complaint was back pain. On examination there is no deformity or redness. Blunt examination showing clear air with no crepitation or wheezing. She was on 3 L of oxygen this morning as well. 03/26/2021 Patient is more awake today however she still lethargic and she still short of breath although she can answer questions appropriately, she still on 3 L oxygen and also she still needs BiPAP at times like this afternoon. No chest pain. Hemodynamically stable. Pulmonary team counseled bronchoscopy as she is not stable enough because of her breathing pattern She remains on ceftriaxone Start her on Eliquis home dose of 5 mg. Stop Lovenox 03/27/2021 Patient was breathing easier partially this morning however she still needs 3 L/m and she still needs BiPAP on and off during the day. She is hemodynamically stable. No other new complaints. Today I discussed with the patient the unfavored prognosis of her illnesses and she verbalized understanding and acceptance and all her questions were answered to her satisfaction. Still waiting on families decide about plan of care and possible hospice Objective - Vital Signs Vital signs: Vital Signs Temp 97.7 F 03/27/21 08:00 Pulse 90 03/27/21 08:00 Resp 20 03/27/21 08:00 BP 97/66 03/27/21 08:00 Pulse Ox 98 03/27/21 08:00 Intake & Output 03/26/21 03/27/21 03/27/21 18:59 06:59 18:59 Intake Total 476 100 180 Output Total 325 250 Balance 151 -150 180 Weight 99 kg Intake: Intake, IV Titration 100 Amount cefTRIAXone 2 gm In 100 Sodium Chloride 0.9% 50 ml @ 100 mls/hr IVPB Q24HR [facility] Rx#:[id number] Oral 476 180 Output: Urine 325 250 Other: Voiding Method External Catheter External Catheter External Catheter # Bowel Movements 1 - Exam -GENERAL: The patient is alert and awake,follows commands, not in any acute distress. Well developed, well nourished. Hard of hearing HEENT: Pupils are round and equally reacting to light. EOMI. No scleral icterus. No conjunctival pallor. Normocephalic, atraumatic. No pharyngeal erythema. No thyromegaly. CARDIOVASCULAR: S1 and S2 present. No murmurs, rubs, or gallops. PULMONARY: Chest is clear to auscultation, no wheezing or crackles. ABDOMEN: Soft, nontender, nondistended, normoactive bowel sounds. No palpable organomegaly. MUSCULOSKELETAL: No joint swelling or deformity. EXTREMITIES: No cyanosis, clubbing, or pedal edema. NEUROLOGICAL: Gross neurological examination did not reveal any focal deficits. SKIN: No rashes. no petechiae. - Labs CBC & Chem 7: 03/22/21 08:43 03/25/21 06:41 Labs: Microbiology - Last 24 Hours (Table) 03/22/21 11:45 Anaerobic Culture - Final Pleural Fluid 03/22/21 11:45 Gram Stain - Final Pleural Fluid Body Fluid Culture - Final Assessment and Plan Assessment: Acute hypercapnic and hypoxic respiratory failure secondary to large right pleural effusion probably malignant effusion possibility of CHF exacerbation is low and possibility of pneumonia is low. Patient had thoracentesis with removal of 2 L of pleural fluid which is exudative in nature but negative for malignant cells. Right lower lobe pneumonia, -Right hilar mass will be malignancy unless otherwise proven. Oncology was consulted. Altered mental status component of toxic/metabolic encephalopathy secondary to above CO2 retention for which patient is presently on BiPAP and patient is presently alert oriented 3 patient underwent workup for stroke so far negative. Severe aortic stenosis, moderate mitral stenosis Acute on chronic congestive heart failure, diastolic dysfunction, EF 50-55% which is decreased from 55-60% from Dec Atrial Fibrillation with RVR, on eliquis, at home, presently on metoprolol and Lovenox probably can be switched back to Eliquis. COPD, not in acute exacerbation patient with no wheezing noted on exam, no cough present, 3L home O2 currently on BiPAP Hypertension hyperlipidemia Anxiety/Depression Obesity DVT prophylaxis Eliquis currently on hold GI prophylaxis Protonix Plan: This is a pleasant 80 years old female who presents with hilar mass, CHF and right pleural effusion. Continue with ceftriaxone Resume Eliquis as there is no bronchoscopy was canceled Family considering hospice Oncology team on the case as well Labs and medication were reviewed.. Continue same treatment. Continue with symptomatic treatment. Resume home medication. Monitor lytes and vitals. DVT and GI prophylaxis. Further recommendationsas per clinical course of the patient DVT prophylaxis: Eliquis GI Prophylaxis: Ppi PT/OT: Pending Prognosis is guarded
--- NOTE | 2021-03-27 13:51 | P.PN ---
Subjective Progress Note Date: 03/27/21 80-year-old white female patient with past medical history of congestive heart failure, severe aortic stenosis, mitral valve stenosis, hypertension, chronic atrial fibrillation on Eliquis, coronary artery disease, COPD and patient wears oxygen at home at 3 L, she is a former smoker, who presented to the emergency department on 03/19/2021 for evaluation of altered mental status. Brain CT was completed showing cerebral atrophy and extensive white matter changes likely related to chronic small vessel ischemia no hemorrhage. Patient's pulse ox was only 65% on room air on presentation, she was tachycardic, but she was afebrile, she tested negative for COVID-19, her chest x-ray showed mild congestive heart failure with a moderate-sized right pleural effusion, there was pulmonary congestion that was slightly increased compared to the previous chest x-ray. Her EKG showed A. fib with a rate of 110 BPM. And evidence of anterolateral infarct of undetermined age. Her laboratory analysis showed white blood cell count of 7.5, hemoglobin of 10.4, platelet count of 247, INR was 1.1, sodium is 139, potassium is 4.0, chloride is 91, CO2 is 44, B1 is 26 creatinine 0.76. LFTs were within normal limits, ammonia level was less than 9, troponin was less than 0.012, proBNP was elevated at 1740, urinalysis without sign of infection, urine drug screen showed benzodiazepines, COVID-19 PCR was negative. Patient was placed on BiPAP support with pressures of 14 and 6 and FiO2 is currently at 50%. Venous blood gas was obtained showing pH of 7.22, pCO2 of 114, and bicarbonate concentration of 47 on venous blood gas. She was started on empiric antibiotics with a combination of azithromycin and Rocephin for concern of underlying pneumonia. Cardiology consultation has been requested, and patient was given 1 dose of Lasix, and she is currently on home dose of Lasix to 20 mg twice daily. Today patient is seen on selective care unit, she is awake and alert, she is oriented 3, she denies any fever or chills at home, she does endorse cough, with no phlegm production, no complaints of chest discomfort, she is certainly much more awake and alert, answering simple questions. She will be trialed on nasal cannula On 03/22/2021 patient seen in follow-up on selective care unit, she is currently on BiPAP with pressures of 14/65-50%, she is awake and alert, answering questions appropriately, patient was given a trial on high flow nasal cannula at 5 L, and was noted to be desaturating and short of breath, she was placed back on BiPAP, tolerating BiPAP support well. No acute events overnight, denies any chest discomfort, her chest x-ray on admission showed a large right-sided pleural effusion, and consideration was given to possibility of parapneumonic pleural effusion, and patient may have a component of chronic CHF exacerbation as well in view of valvular heart disease. Today's labs have been reviewed, white blood cell count is 9.6, hemoglobin is 10.7, sodium is 1:30, potassium is 4.3, chloride is 93, CO2 is 40, B1 is 30, creatinine 0.69, 2 pro-calcitonin levels were negative at 0.09, and 0.07 making possibility of bacterial pneumonia less likely. Patient had a right-sided thoracentesis at the bedside by Dr. Fournier, tolerated procedure very well, nearly 2 L of thin serosanguineous fluid removed with the procedure and fluid was sent for analysis. Postprocedure chest x-ray showed interval reduction in the amount of pleural fluid on the right postthoracentesis no sizable pneumothorax. On 03/23/2021 patient seen in follow-up on selective care unit. Yesterday she had a right-sided thoracentesis with removal of 2 L of blood-tinged fluid which was sent for analysis. Pleural fluid analysis reveals exudative fluid, cytology still pending, cultures are pending, no growth on the Gram stain so far. No fever or chills overnight, vital signs have been stable, patient is currently on 3 L of oxygen pulse ox is 98%. She had episode of confusion this morning, her daughter was called to the bedside. Otherwise no acute events overnight, no worsening dyspnea, she continues on Lasix 20 mg by mouth twice daily, she is on antibiotics in the form of Rocephin. Waiting final pleural fluid cultures, pro- calcitonin level was low. CT of the chest has been reviewed showing suspected right hilar mass versus underlying adenopathy with the recommendation of bronchoscopic evaluation and/or PET scan. Narrowing of the right lower lobe bronchus with right lower lobe collapse, small right-sided pleural effusion. Mild mediastinal adenopathy. On 03/24/2021 patient seen in follow-up on selective care unit. Yesterday patient had a change in her mental status, she was found to be more lethargic, and family thought her speech was slurred, and patient was told to verbally respond. Patient was thought to be hypercapnic, and she was placed on BiPAP support and blood gas was obtained shortly after BiPAP support was applied affirming acute on chronic hypercapnic respiratory failure. PO2 was 116, pCO2 was 101, a pH of 7.29, and this was done and FiO2 of 50% and BiPAP 14 and 6. T angelo she seen in follow-up, she was seen by neurology in consultation. Her NIH stroke scale was 0 at the time of mental status changes and old stroke, no brain CT was recommended. Carotid Doppler showed bilateral plaque formation in the carotid arteries, and images in measurements suggest less than 50% stenosis bilaterally. Today patient seems to be more awake, she is able to respond to simple questions, she remains on BiPAP support today, her daughter thinks her speech has improved. Neurology evaluated the patient, and patient had been off her anticoagulation for history of atrial fibrillation for 2 days prior to right-sided thoracentesis, at this time they are recommended to continue with anticoagulation in view of her neurological symptoms and chronic A. fib. She is also on BiPAP support most of the time, we discussed recent clinical changes in her condition with her daughter and at this time bronchoscopy with biopsies will be postponed. The patient is seen today 03/25/2021 in follow-up on the selective care unit. She is currently resting in bed. Currently on BiPAP 14/6 and 35% FiO2 with O2 saturations in the 90s. When she is off the BiPAP she is doing well on just 3 L nasal cannula. She does have some element of anxiety. 0.9 normal saline at 20 ML's per hour. No residual neurologic symptoms today. She is continued on Lovenox 100 mg subcu every 12 hours. She remains on antibiotics in the form of ceftriaxone. Blood cultures revealed no growth. Pleural fluid cultures reveal no growth. Cytology negative for malignancy. The patient is seen today 03/26/2021 in follow-up on the selective care unit. She is currently awake and alert in no acute distress. DuoNeb bit better today compared to yesterday. She remains on BiPAP 14/6 and 35% FiO2. She has normal saline running at KVO. Daughter is at the bedside. She is continued on Eliquis, antibiotics in form of ceftriaxone. Oral diuretics. The patient is seen today 03/27/2021 in follow-up on the selective care unit. She is sitting up in bed. Awake and alert in no acute distress. Currently off BiPAP and on 3 L nasal cannula. Normal saline at 20 ML's per hour. She is anticoagulated with Eliquis now. Remains on oral diuretics. Objective - Vital Signs Vital signs: Vital Signs Temp 97.5 F L 03/27/21 11:43 Pulse 64 03/27/21 11:43 Resp 28 H 03/27/21 11:43 BP 120/77 03/27/21 11:43 Pulse Ox 97 03/27/21 11:43 Intake & Output 03/26/21 03/27/21 03/27/21 18:59 06:59 18:59 Intake Total 476 100 360 Output Total 325 250 Balance 151 -150 360 Weight 99 kg Intake: Intake, IV Titration 100 Amount cefTRIAXone 2 gm In 100 Sodium Chloride 0.9% 50 ml @ 100 mls/hr IVPB Q24HR [facility] Rx#:[id number] Oral 476 360 Output: Urine 325 250 Other: Voiding Method External Catheter External Catheter External Catheter # Bowel Movements 1 - Exam GENERAL EXAM: Alert, very pleasant, 80-year-old female patient, answering simple questions, currently on 3 L nasal cannula. HEAD: Normocephalic/atraumatic. EYES: Normal reaction of pupils, equal size. Conjunctiva pink, sclera white. NOSE: Clear with pink turbinates. THROAT: No erythema or exudates. NECK: No masses, no JVD, no thyroid enlargement, no adenopathy. CHEST: No chest wall deformity. Symmetrical expansion. LUNGS: Equal air entry with diminished breath sounds at the bases, right greater than left CVS: Irregular rate and rhythm, normal S1 and S2, no gallops, no murmurs, no rubs ABDOMEN: Soft, nontender. No hepatosplenomegaly, normal bowel sounds, no guarding or rigidity. EXTREMITIES: No clubbing, no edema, no cyanosis, 2+ pulses and upper and lower extremities. MUSCULOSKELETAL: Muscle strength and tone normal. SPINE: No scoliosis or deformity SKIN: No rashes CENTRAL NERVOUS SYSTEM: No focal deficits, tone is normal in all 4 extremities. PSYCHIATRIC: Alert and oriented -3. Appropriate affect. Intact judgment and insight. - Labs CBC & Chem 7: 03/22/21 08:43 03/25/21 06:41 Labs: Microbiology - Last 24 Hours (Table) 03/22/21 11:45 Anaerobic Culture - Final Pleural Fluid 03/22/21 11:45 Gram Stain - Final Pleural Fluid Body Fluid Culture - Final Assessment and Plan Assessment: 1 Acute on chronic hypoxic and hypercapnic respiratory failure related to acute exacerbation of CHF with diastolic dysfunction and possibility of right lower lobe pneumonia, possibly community-acquired with a large right-sided pleural effusion. COVID-19 PCR was negative patient was placed on BiPAP support in the emergency department, mentation and oxygenation have improved. Ultrasound of the chest showed 12.5 cm right pleural effusion, and Right sided thoracentesis was completed on 03/22/2021 cultures are revealing no growth . Cytology negative for malignancy. 2 Large right pleural effusion, possibly parapneumonic, or possibly malignant, S/P right-sided thoracentesis on 03/22/2021 with removal of 2 L of se rosanguineous pleural fluid which was sent for cytology, urinalysis, and cultures. 2 sets of Procalcitonin level were negative making possibility of underlying bacterial infection less likely. Pleural fluid analysis revealed exudative fluid, cytology was negative and cultures are still pending, no growth on the Gram stain 3 Suspected right hilar mass, narrowing of the right lower lobe bronchus and right lower lobe collapse. Bronchoscopy scheduled for today was canceled 4 Altered mental status possibly related to pneumonia and sepsis and acute on chronic hypercapnic respiratory failure, improved. Brain CT showed no acute intracranial findings 5 History of diastolic CHF with severe aortic stenosis and mitral valve stenosis 6 Chronic A. fib on Eliquis 7 Hypertension 8 History of COPD on home oxygen at 3 L 9 Anxiety/depression 10 Former smoker Plan: The patient was seen and evaluated Resting comfortably on 3 liters nasal cannula Possibly outpatient PET scan She may not consider treatment if found to be cancer They are still deciding about hospice We will see as needed I, the cosigning physician, performed a history & physical examination of the patient. Lungs sounds diminished in the right lung base. Maintaining good O2 saturations in the 90s on 3 L/m per nasal. I discussed the assessment and plan of care with my nurse practitioner, Pooja Beyer. I attest to the above note as dictated by her.
[2021-03-27] MEDS: MELATONIN 3 MG TABLET PO SCH (21:27)
[2021-03-28] MEDS: PANTOPRAZOLE 40 MG TABLET PO SCH (05:34)
[2021-03-28 08:10] LABS: Basophils % (A) 0 %; Eosinophils # (A) 0.2 k/uL (0-0.7); Eosinophils % (A) 2 %; HCT 32.8 % (34.0-46.0); HGB 9.8 gm/dL (11.4-16.0); Hypochromasia Marked; Lymphocytes # (A) 0.7 k/uL (1.0-4.8); Lymphocytes % (A) 9 %; MCH 28.7 pg (25.0-35.0); MCHC 29.8 g/dL (31.0-37.0); MCV 96.3 fL (80.0-100.0); Mean Platelet Volume 7.8; Monocytes # (A) 0.6 k/uL (0-1.0); Monocytes % (A) 7 %; Neutrophils # (A) 6.9 k/uL (1.3-7.7); Neutrophils % (A) 81 %; Platelet Count 227 k/uL (150-450); RDW 15.5 % (11.5-15.5); WBC 8.6 k/uL (3.8-10.6)
[2021-03-28 08:23] LABS: African American GFR (CKD) >90 (>60 ml/min/1.73 sqM); Blood Urea Nitrogen 23 mg/dL (7-17); Calcium 9.2 mg/dL (8.4-10.2); Chloride 89 mmol/L (98-107); Glucose 86 mg/dL (74-99); Non-African American GFR(CKD) 84 (>60 ml/min/1.73 sqM); Sodium 137 mmol/L (137-145)
[2021-03-28] MEDS: lisinopriL 10 MG TAB PO SCH (08:30)
[2021-03-28] MEDS: APIXABAN 5 MG TAB PO SCH ×2 (08:30→20:21)
[2021-03-28] MEDS: ALPRAZolam 0.25 MG TAB PO SCH ×2 (08:30→20:21)
[2021-03-28] MEDS: ATORVASTATIN 10 MG TAB PO SCH (08:30)
[2021-03-28] MEDS: LIDOCAINE 5% PATCH TOPICAL SCH (08:30)
[2021-03-28] MEDS: OXYBUTYNIN 10 MG TAB.ER.24 PO SCH (08:31)
[2021-03-28] MEDS: VERAPAMIL SR 120 MG TABLET.ER PO SCH (08:31)
[2021-03-28] MEDS: METOPROLOL TARTRATE 25 MG TAB PO SCH ×2 (08:31→20:21)
[2021-03-28] MEDS: FUROSEMIDE 20 MG TAB PO SCH ×2 (08:31→16:25)
[2021-03-28] MEDS: MULTIVITAMINS, THERA 1 EACH TAB PO SCH (08:31)
[2021-03-28] MEDS: PARoxetine 10 MG TAB PO SCH (08:31)
[2021-03-28 08:33] LABS: Anion Gap 5 mmol/L; Carbon Dioxide 43 mmol/L (22-30)
--- NOTE | 2021-03-28 12:16 | P.PN ---
Subjective 80-year-old female her evaluation for altered mental status weakness found by family to be less responsive than usual. She had total bottles scattered about throat her house. Reports of any trauma or any fevers chills or sweats however she paranasal been eating and drinking as much as usual. Not as responsive as usual. Noted have tremors about the chest and hands today. 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 Labs are pending from today. Echocardiogram shows an EF of 50-55% with severe aortic stenosis, moderate mitral stenosis, mild tricuspid regurgitation. Previous echo from December 2020 shows an EF of 55-60%. Patient underwent chest ultrasound today which shows a large right pleural effusion. Pulmonary consulted. P rocalcitonin 0.09, CRP 5.7. Patient continues on IV Rocephin, by mouth Zithromax, PO Lasix BID. 03/22/2021 Patient debilitated the bedside, she is on BiPAP 50% with a saturation of 90%, blood pressure stable 152/82 respirations 22, heart rate 86, afebrile. She has some anxiety last night about her pending thoracentesis today. Patient is denying any chest pain or chest pressure today she reports no shortness of breath on BiPAP. Cardiology has cleared patient today to follow up with Dr. Thi dai outpatient. Labs today hemoglobin stable 10.7, sodium 138, potassium 4.3, chloride 93, CO2 40, BUN 30, creatinine 0.69, blood sugar 106, mag 1.8. 03/22/2021 Patient is a pleasant 80-year-old female admitted for acute hypoxic respiratory failure found to have right-sided pleural effusion patient underwent pleural tap about 2 L of serosanguineous fluid was removed. Patient's respiratory status again improved after a drainage of the pleural fluid. Patient the pleural effusion appears to be exudative. Probably malignant pleural effusion patient had a CT of the chest which is concerned needing for hilar mass. Patient respiratory status as per the patient is bit worse compared to yesterday after the pleural tap because of which I obtain an x-ray still showing some moderate pleural effusion. 03/24/2021 Patient had a respiratory decompensation yesterday patient had altered mental status code stroke was called although patient is found to have highly elevated pCO2 of 102 patient was started on BiPAP. Since code stroke was called neurology was consulted and the ordered a carotid Doppler showed some abnormality in the flow in vertebral artery. CT of the head did not show any acute stroke. It was recommended that by neurology to be resumed on anticoagulation this anti-correlation is being held for possible biopsy of the right lung mass. Considering respiratory decompensation biopsy probably will not be done during this hospitalization. Patient probably will be started on E liquis for that reason. When I evaluated the patient patient wanted to be discharged and doesn't want to continue any further treatment and just wanted to go home and . I had a lengthy discussion with the daughter regarding options of the treatment I also discussed with oncology regarding its treatment options. Even though patient cannot get the a bronchoscopy biopsy rate of a liquid biopsy can be done looking for adenocarcinoma and EGFR genes, if they are positive patient can receive biol ogic therapy with lesser side effects than chemotherapy which probably patient can tolerate it because of this reason up in a consulted oncology in the hospice and palliative care will evaluate the patient as well. Patient remains on BiPAP. Quite anxious for which patient is on Xanax does frequency of which will be increased and also on Haldol considering her age to much show benzodiazepines can lead to confusion and agitation. Subjective: 03/25/2021 This is a pleasant 80 years old female who presents with respiratory distress secondary to his diastolic CHF and dry pleural effusion, status post 2 L removed by right thoracocentesis but cytology test came back negative. Also she has severe aortic stenosis and moderate mitral stenosis and she was on Eliquis at home for her chronic A. fib. There was suspicion of right hilar mass, pulmonary team are planning for bronchoscopy. However family are discussing the possibility of hospice but there is no final decision about this year. This morning she is awake alert, she looks calm. No respiratory distress. No chest pain. Her only complaint was back pain. On examination there is no deformity or redness. Blunt examination showing clear air with no crepitation or wheezing. She was on 3 L of oxygen this morning as well. 03/26/2021 Patient is more awake today however she still lethargic and she still short of breath although she can answer questions appropriately, she still on 3 L oxygen and also she still needs BiPAP at times like this afternoon. No chest pain. Hemodynamically stable. Pulmonary team counseled bronchoscopy as she is not stable enough because of her breathing pattern She remains on ceftriaxone Start her on Eliquis home dose of 5 mg. Stop Lovenox 03/27/2021 Patient was breathing easier partially this morning however she still needs 3 L/m and she still needs BiPAP on and off during the day. She is hemodynamically stable. No other new complaints. Today I discussed with the patient the unfavored prognosis of her illnesses and she verbalized understanding and acceptance and all her questions were answered to her satisfaction. Still waiting on families decide about plan of care and possible hospice 03/28/2021 Patient admitted with diastolic CHF and currently on oral Lasix and also she has dry pleural effusion but thoracocentesis felt to show any malignancy on cytology exam however malignancy still highly suspected given her right hilar mass of 2.5 cm but patient is poor candidate for bronchoscopy given her compromised lung function therefore given her other multiple medical problems for example including but not limited to severe aortic stenosis, moderate mitral stenosis, atrial fibrillation hypoxia and others then hospice is need to be considered. Currently pulmonary team are discussing her management plan with the daughter end of the patient and family decision about plan of care. Possible hospice versus others. I told the patient and myself about her prognosis and the findings and she is going to discuss with the family as well. Also she feels comfortable for the last 2 days and her pain is controlled with lidocaine patch on the current pain medication Objective - Vital Signs Vital signs: Vital Signs Temp 97.7 F 03/28/21 08:25 Pulse 71 03/28/21 08:25 Resp 22 03/28/21 08:25 BP 125/74 03/28/21 08:25 Pulse Ox 92 L 03/28/21 08:25 Intake & Output 03/27/21 03/28/21 03/28/21 18:59 06:59 18:59 Intake Total 410 120 Output Total 751 201 1 Balance -341 -201 119 Intake: Intake, IV Titration 50 Amount cefTRIAXone 2 gm In 50 Sodium Chloride 0.9% 50 ml @ 100 mls/hr IVPB Q24HR [facility] Rx#:[id number] Oral 360 120 Output: Urine 750 200 Stool 1 1 1 Other: Voiding Method External Catheter External Catheter External Catheter - Exam -GENERAL: The patient is alert and awake,follows commands, not in any acute distress. Well developed, well nourished. Hard of hearing HEENT: Pupils are round and equally reacting to light. EOMI. No scleral icterus. No conjunctival pallor. Normocephalic, atraumatic. No pharyngeal erythema. No thyromegaly. CARDIOVASCULAR: S1 and S2 present. No murmurs, rubs, or gallops. PULMONARY: Chest is clear to auscultation, no wheezing or crackles. ABDOMEN: Soft, nontender, nondistended, normoactive bowel sounds. No palpable organomegaly. MUSCULOSKELETAL: No joint swelling or deformity. EXTREMITIES: No cyanosis, clubbing, or pedal edema. NEUROLOGICAL: Gross neurological examination did not reveal any focal deficits. SKIN: No rashes. no petechiae. - Labs CBC & Chem 7: 03/28/21 06:57 03/28/21 06:57 Labs: Abnormal Lab Results - Last 24 Hours (Table) 03/28/21 03/28/21 Range/Units 06:57 06:57 RBC 3.40 L (3.80-5.40) m/uL Hgb 9.8 L (11.4-16.0) gm/dL Hct 32.8 L (34.0-46.0) % MCHC 29.8 L (31.0-37.0) g/dL Lymphocytes # 0.7 L (1.0-4.8) k/uL Chloride 89 L (98-107) mmol/L Carbon Dioxide 43 H* (22-30) mmol/L BUN 23 H (7-17) mg/dL Assessment and Plan Assessment: Acute hypercapnic and hypoxic respiratory failure secondary to large right pleural effusion probably malignant effusion possibility of CHF exacerbation is low and possibility of pneumonia is low. Patient had thoracentesis with removal of 2 L of pleural fluid which is exudative in nature but negative for malignant cells. Right lower lobe pneumonia, -Right hilar mass will be malignancy unless otherwise proven. Oncology was consulted. Altered mental status component of toxic/metabolic encephalopathy secondary to above CO2 retention for which patient is presently on BiPAP and patient is presently alert oriented 3 patient underwent workup for stroke so far negative. Severe aortic stenosis, moderate mitral stenosis Acute on chronic congestive heart failure, diastolic dysfunction, EF 50-55% which is decreased from 55-60% from Dec Atrial Fibrillation with RVR, on eliquis, at home, presently on metoprolol and Lovenox probably can be switched back to Eliquis. COPD, not in acute exacerbation patient with no wheezing noted on exam, no cough present, 3L home O2 currently on BiPAP Hypertension hyperlipidemia Anxiety/Depression Obesity DVT prophylaxis Eliquis currently on hold GI prophylaxis Protonix Plan: This is a pleasant 80 years old female who presents with hilar mass, CHF and right pleural effusion. Continue with ceftriaxone Resume Eliquis as there is no bronchoscopy was canceled Family considering hospice Oncology team on the case as well Labs and medication were reviewed.. Continue same treatment. Continue with symptomatic treatment. Resume home medication. Monitor lytes and vitals. DVT and GI prophylaxis. Further recommendationsas per clinical course of the patient DVT prophylaxis: Eliquis GI Prophylaxis: Ppi PT/OT: Pending Prognosis is guarded
[2021-03-28] MEDS ORDERED: ALPRAZolam 0.5 MG TAB PO PRN (12:56)
[2021-03-28] MEDS ORDERED: ALPRAZolam 0.25 MG TAB PO PRN (13:48)
--- NOTE | 2021-03-28 14:12 | P.PN ---
Subjective Progress Note Date: 03/28/21 On today's evaluation of 03/28/2021, [facility] patient for a follow-up. The patient is feeling better compared to yesterday. She is currently off the BiPAP and the patient is currently on 3 L per minute nasal cannula. No significant respiratory difficulties at this point in time. The daughter the bedside. I reviewed the CAT scan of the chest and I agreed to earlier setting of a mass in the right lower lobe area causing significant amount of mass effect on the bronchus intermedius. The patient also had a right-sided pleural effusion. Thoracentesis was done. The effusion was self bloody. The fluid cytology came back negative for malignancy. This essentially does not rule out the possibility of cancer in this patient. Noted the patient is known to have extensive medical problems and comorbidities. The patient is known to have COPD and she is oxygen dependent at 3 L per minute nasal cannula. 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 She is a former smoker. She was utilizing BiPAP for acute respiratory failure and currently she is off the BiPAP. The blood work from today shows a white cell count of 8.6 with a hemoglobin dropped 0.8 and platelet count of 227. The patient also had a BUN of 23 with a creatinine of 0.6 and the sodium level of 137. Objective - Vital Signs Vital signs: Vital Signs Temp 97.7 F 03/28/21 11:40 Pulse 60 03/28/21 11:40 Resp 18 03/28/21 11:40 BP 120/64 03/28/21 11:40 Pulse Ox 100 03/28/21 11:40 Intake & Output 03/27/21 03/28/21 03/28/21 18:59 06:59 18:59 Intake Total 410 360 Output Total 751 201 101 Balance -341 -201 259 Intake: Intake, IV Titration 50 Amount cefTRIAXone 2 gm In 50 Sodium Chloride 0.9% 50 ml @ 100 mls/hr IVPB Q24HR [facility] Rx#:[id number] Oral 360 360 Output: Urine 750 200 100 Stool 1 1 1 Other: Voiding Method External Catheter External Catheter External Catheter - Exam GENERAL EXAM: Alert, very pleasant, 80-year-old female patient, answering simple questions, currently on 3 L nasal cannula. HEAD: Normocephalic/atraumatic. EYES: Normal reaction of pupils, equal size. Conjunctiva pink, sclera white. NOSE: Clear with pink turbinates. THROAT: No erythema or exudates. NECK: No masses, no JVD, no thyroid enlargement, no adenopathy. CHEST: No chest wall deformity. Symmetrical expansion. LUNGS: Equal air entry with diminished breath sounds at the bases, right greater than left CVS: Irregular rate and rhythm, normal S1 and S2, no gallops, no murmurs, no rubs ABDOMEN: Soft, nontender. No hepatosplenomegaly, normal bowel sounds, no guarding or rigidity. EXTREMITIES: No clubbing, no edema, no cyanosis, 2+ pulses and upper and lower extremities. MUSCULOSKELETAL: Muscle strength and tone normal. SPINE: No scoliosis or deformity SKIN: No rashes CENTRAL NERVOUS SYSTEM: No focal deficits, tone is normal in all 4 extremities. PSYCHIATRIC: Alert and oriented -3. Appropriate affect. Intact judgment and insight. - Labs CBC & Chem 7: 03/28/21 06:57 03/28/21 06:57 Labs: Abnormal Lab Results - Last 24 Hours (Table) 03/28/21 03/28/21 Range/Units 06:57 06:57 RBC 3.40 L (3.80-5.40) m/uL Hgb 9.8 L (11.4-16.0) gm/dL Hct 32.8 L (34.0-46.0) % MCHC 29.8 L (31.0-37.0) g/dL Lymphocytes # 0.7 L (1.0-4.8) k/uL Chloride 89 L (98-107) mmol/L Carbon Dioxide 43 H* (22-30) mmol/L BUN 23 H (7-17) mg/dL Assessment and Plan Plan: 1 Acute on chronic hypoxic and hypercapnic respiratory failure related to acute exacerbation of CHF with diastolic dysfunction and possibility of right lower lobe pneumonia, possibly community-acquired with a large right-sided pleural effusion. COVID-19 PCR was negative patient was placed on BiPAP support in the emergency department, mentation and oxygenation have improved. Ultrasound of the chest showed 12.5 cm right pleural effusion, and Right sided thoracentesis was completed on 03/22/2021 cultures are revealing no growth . Cytology negative for malignancy. Nevertheless, there is a high likelihood for an underl teo lung cancer. The patient has a right hilar mass measuring 5.2 cm in addition to a right hilar lymphadenopathy, narrowing of the bronchus intermedius and right lower lobe atelectasis and the findings are highly suspicious for malignancy despite a negative pleural fluid cytology. 2 Large right pleural effusion, possibly parapneumonic, or possibly malignant, S/P right-sided thoracentesis on 03/22/2021 with removal of 2 L of serosanguineous pleural fluid which was sent for cytology, urinalysis, and cultures. 2 sets of Procalcitonin level were negative making possibility of underlying bacterial infection less likely. Pleural fluid analysis revealed exudative fluid, cytology was negative and cultures are still pending, no growth on the Gram stain 3 Suspected right hilar mass, narrowing of the right lower lobe bronchus and right lower lobe collapse. Bronchoscopy scheduled for today was canceled 4 Altered mental status possibly related to pneumonia and sepsis and acute on chronic hypercapnic respiratory failure, improved. Brain CT showed no acute intracranial findings 5 History of diastolic CHF with severe aortic stenosis and mitral valve stenosis 6 Chronic A. fib on Eliquis 7 Hypertension 8 History of COPD on home oxygen at 3 L 9 Anxiety/depression 10 Former smoker Plan: I had a lengthy discussion with the patient's daughter. I reviewed the CAT scan images. The right hilar mass is more than likely a representation of an underlying mass/lung cancer. There is also significant narrowing of the right sided bronchus intermedius/right lower lobe bronchus with mass effect and atelectasis of the right-sided pleural effusion. Obviously, based on the donnie ent's age and comorbidities, she would not be a good candidate for any biopsy or any further therapeutic or intervention should the diagnosis of lung cancer established. Based on that, I recommended hospice care. The daughter was very receptive. In fact she was considering hospice care and she wanted my supports. I supported her decision and hospice consultation will be initiated at this point in time. Seems in much more comfortable on 3 L about 2 by nasal cannula and the patient can potentially go home with hospice care once all arrangements are made. No need for an outpatient PET scan testing from this point and on. I answered all the questions to their satisfaction.
[2021-03-28] MEDS: MELATONIN 3 MG TABLET PO SCH (20:21)
[2021-03-29] MEDS: PANTOPRAZOLE 40 MG TABLET PO SCH (06:23)
[2021-03-29] MEDS: FUROSEMIDE 20 MG TAB PO SCH ×2 (08:56→16:10)
[2021-03-29] MEDS: METOPROLOL TARTRATE 25 MG TAB PO SCH (08:56)
[2021-03-29] MEDS: VERAPAMIL SR 120 MG TABLET.ER PO SCH (08:56)
[2021-03-29] MEDS: ATORVASTATIN 10 MG TAB PO SCH (08:56)
[2021-03-29] MEDS: ALPRAZolam 0.25 MG TAB PO SCH (08:56)
[2021-03-29] MEDS: PARoxetine 10 MG TAB PO SCH (08:56)
[2021-03-29] MEDS: APIXABAN 5 MG TAB PO SCH (08:56)
[2021-03-29] MEDS: MULTIVITAMINS, THERA 1 EACH TAB PO SCH (08:56)
[2021-03-29] MEDS: lisinopriL 10 MG TAB PO SCH (08:56)
[2021-03-29] MEDS: OXYBUTYNIN 10 MG TAB.ER.24 PO SCH (08:56)
[2021-03-29] MEDS: LIDOCAINE 5% PATCH TOPICAL SCH (08:59)
[2021-03-29 09:49] VITALS: BP 101/56; PULSE 80; RESP 23; TEMP 97.8
--- NOTE | 2021-03-29 10:54 | P.PN ---
Subjective Progress Note Date: 03/29/21 On today's evaluation of 03/28/2021, [facility] patient for a follow-up. The patient is feeling better compared to yesterday. She is currently off the BiPAP and the patient is currently on 3 L per minute nasal cannula. No significant respiratory difficulties at this point in time. The daughter the bedside. I reviewed the CAT scan of the chest and I agreed to earlier setting of a mass in the right lower lobe area causing significant amount of mass effect on the bronchus intermedius. The patient also had a right-sided pleural effusion. Thoracentesis was done. The effusion was self bloody. The fluid cytology came back negative for malignancy. This essentially does not rule out the possibility of cancer in this patient. Noted the patient is known to have extensive medical problems and comorbidities. The patient is known to have COPD and she is oxygen dependent at 3 L per minute nasal cannula. 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 She is a former smoker. She was utilizing BiPAP for acute respiratory failure and currently she is off the BiPAP. The blood work from today shows a white cell count of 8.6 with a hemoglobin dropped 0.8 and platelet count of 227. The patient also had a BUN of 23 with a creatinine of 0.6 and the sodium level of 137. On today's evaluation of 03/29/2021, the patient is resting comfortably in bed. The patient has no specific complaints. The patient is alternating between a BiPAP and oxygen at 3 L per minute nasal cannula. Overnight was essentially une ventful. She remains on long-term articulation with Eliquis 5 mg by mouth twice a day. I have elected discussion with the daughter. After having our discussion, I supported the family decision of considering hospice in this patient. Based on her age, comorbidities and a large lung mass obstructing and causing mass effect on the right mainstem bronchus/bronchus intermedius, the patient has low chance of recovery. Note that the patient has severe aortic stenosis, mitral valve stenosis, valvular heart disease, congestion heart failure, in addition to COPD the patient is on oxygen at 3 L per minute nasal cannula at all times. She also has chronic atrial fibrillation. No new labs are available, and the patient is going to be evaluated by hospice care. Objective - Vital Signs Vital signs: Vital Signs Temp 97.8 F 03/29/21 08:00 Pulse 80 03/29/21 08:00 Resp 23 03/29/21 08:00 BP 101/56 03/29/21 08:00 Pulse Ox 95 03/29/21 08:00 Intake & Output 03/28/21 03/29/21 03/29/21 18:59 06:59 18:59 Intake Total 360 0 Output Total 377 901 200 Balance -17 -901 -200 Intake: Oral 360 0 Output: Urine 375 900 200 Stool 2 1 Other: Voiding Method External Catheter External Catheter External Catheter - Exam GENERAL EXAM: Alert, very pleasant, 80-year-old female patient, answering simple questions, currently on 3 L nasal cannula. HEAD: Normocephalic/atraumatic. EYES: Normal reaction of pupils, equal size. Conjunctiva pink, sclera white. NOSE: Clear with pink turbinates. THROAT: No erythema or exudates. NECK: No masses, no JVD, no thyroid enlargement, no adenopathy. CHEST: No chest wall deformity. Symmetrical expansion. LUNGS: Equal air entry with diminished breath sounds at the bases, right greater than left CVS: Irregular rate and rhythm, normal S1 and S2, no gallops, no murmurs, no rubs ABDOMEN: Soft, nontender. No hepatosplenomegaly, normal bowel sounds, no guarding or rigidity. EXTREMITIES: No clubbing, no edema, no cyanosis, 2+ pulses and upper and lower extremities. MUSCULOSKELETAL: Muscle strength and tone normal. SPINE: No scoliosis or deformity SKIN: No rashes CENTRAL NERVOUS SYSTEM: No focal deficits, tone is normal in all 4 extremities. PSYCHIATRIC: Alert and oriented -3. Appropriate affect. Intact judgment and insight. - Labs CBC & Chem 7: 03/28/21 06:57 03/28/21 06:57 Assessment and Plan Plan: 1 Acute on chronic hypoxic and hypercapnic respiratory failure related to acute exacerbation of CHF with diastolic dysfunction and possibility of right lower lobe pneumonia, possibly community-acquired with a large right-sided pleural effusion. COVID-19 PCR was negative patient was placed on BiPAP support in the emergency department, mentation and oxygenation have improved. Ultrasound of the chest showed 12.5 cm right pleural effusion, and Right sided thoracentesis was completed on 03/22/2021 cultures are revealing no growth . Cytology negative for malignancy. Nevertheless, there is a high likelihood for an underlying lung cancer. The patient has a right hilar mass measuring 5.2 cm in addition to a right hilar lymphadenopathy, narrowing of the bronchus intermedius and right lower lobe atelectasis and the findings are highly suspicious for malignancy despite a negative pleural fluid cytology. 2 Large right pleural effusion, possibly parapneumonic, or possibly malignant, S/P right-sided thoracentesis on 03/22/2021 with removal of 2 L of serosanguineous pleural fluid which was sent for cytology, urinalysis, and cultures. 2 sets of Procalcitonin level were negative making possibility of underlying bacterial infection less likely. Pleural fluid analysis revealed exudative fluid, cytology was negative and cultures are still pending, no growth on the Gram stain 3 Suspected right hilar mass, narrowing of the right lower lobe bronchus and right lower lobe collapse. Bronchoscopy scheduled for today was canceled 4 Altered mental status possibly related to pneumonia and sepsis and acute on chronic hypercapnic respiratory failure, improved. Brain CT showed no acute intracranial findings 5 History of diastolic CHF with severe aortic stenosis and mitral valve stenosis 6 Chronic A. fib on Eliquis 7 Hypertension 8 History of COPD on home oxygen at 3 L 9 Anxiety/depression 10 Former smoker Plan: I had a lengthy discussion with the patient's daughter. I reviewed the CAT scan images. The right hilar mass is more than likely a representation of an underlying mass/lung cancer. There is also significant narrowing of the right sided bronchus intermedius/right lower lobe bronchus with mass effect and atelectasis of the right-sided pleural effusion. Obviously, based on the patient's age and comorbidities, she would not be a good candidate for any biopsy or any further therapeutic or intervention should the diagnosis of lung cancer established. Based on that, I recommended hospice care. The daughter was very receptive. In fact she was considering hospice care and she wanted my supports. I supported her decision and hospice consultation will be initiated at this point in time. Seems in much more comfortable on 3 L about 2 by nasal cannula and the patient can potentially go home with hospice care once all arrangements are made. No need for an outpatient PET scan testing from this point and on. I answered all the questions to their satisfaction. On today's evaluation, the patient is resting comfortably in bed. She is alternating with a BiPAP and 3 L of O2 by nasal cannula. The patient is calm comfortable at this point in time. She'll be proceeding with hospice care. Hospice consultation has been requested.
[2021-03-29 13:03] VITALS: BMI 32.2
--- NOTE | 2021-03-29 14:49 | P.PN ---
Subjective Progress Note Date: 03/29/21 Principal diagnosis: right hilar mass when seen today patient continues on BiPAP. When asked if she feels better than she did on admit she answered with a resounding "yes!" Objective - Vital Signs Vital signs: Vital Signs Temp 97.8 F 03/29/21 08:00 Pulse 80 03/29/21 08:00 Resp 23 03/29/21 08:00 BP 101/56 03/29/21 08:00 Pulse Ox 95 03/29/21 08:00 Intake & Output 03/28/21 03/29/21 03/29/21 18:59 06:59 18:59 Intake Total 360 0 Output Total 377 901 200 Balance -17 -901 -200 Weight 99 kg Intake: Oral 360 0 Output: Urine 375 900 200 Stool 2 1 Other: Voiding Method External Catheter External Catheter External Catheter # Bowel Movements 0 - Constitutional General appearance: Present: cooperative, no acute distress, obese - EENT Eyes: Present: anicteric sclerae, EOMI ENT: Present: hearing grossly normal - Respiratory Respiratory: bilateral: diminished - Cardiovascular Rhythm: regular Heart sounds: normal: S1, S2 Abnormal Heart Sounds: Absent: systolic murmur, diastolic murmur, rub, S3 Gallop, S4 Gallop, click, other - Gastrointestinal General gastrointestinal: Present: normal bowel sounds, soft - Psychiatric Psychiatric: Present: A&O x's 3, appropriate affect - Labs CBC & Chem 7: 03/28/21 06:57 03/28/21 06:57 Assessment and Plan (1) Hilar mass Current Visit: Yes Status: Acute Priority: High Code(s): R91.8 - OTHER NONSPECIFIC ABNORMAL FINDING OF LUNG FIELD SNOMED Code(s): 159800651 Plan: Pleural fluid was nondiagnostic for malignancy. Did review pulmonary notes. Patient and family are deciding to forego any biopsy and pursue comfort measures only. Hospice was consulted.
--- NOTE | 2021-03-29 17:03 | CDI ---
Documentation Clarification Form Date: 03/29/2021 04:39:21 PM From: Haydee Velez RN, CCDS Admit Date: 03/19/2021 06:04:00 PM Patient Name: Elza Schroeder Visit Number: [id number] Discharge Date: ATTENTION: The Clinical Documentation Specialists (CDI) and [facility] Coding Staff appreciate your assistance in clarifying documentation. Please respond to the clarification below the line at the bottom and electronically sign. The CDI & [facility] Coding staff will review the response and follow-up if needed. Please note: Queries are made part of the Legal Health Record. If you have any questions, please contact the author of this message via ITS. Dr. Yasmany Marinelli Sepsis is documented in the pulmonary consult on 03/21/21 and subsequent progress notes which, may lack sufficient clinical evidence/support in the medical record. Additional clarification is requested. 03/21 Pulmonary consult (Dr. Fournier) Altered mental status possibly related to pneumonia and sepsis and acute on chronic hypercapnic respiratory failure. History/Risk Factors: Pneumonia, Diastolic heart failure, COPD, Hypertension, Severe aortic stenosis Clinical Indicators: 80-year-old female present to ED on 03/19/21 for evaluation for altered mental status weakness found by family to be less responsive. Chest x-ray with evidence of right lower lobe infiltrate. EKG with atrial fibrillation with a rapid rate of 110. 03/19 WBC 7.5, Covid-19 not detected 03/19 Vital signs: 118/85 121 34 97.9 65 % RA Treatment: Telemetry Monitoring .9NS 500 MLS/Bolus 03/19 Zosyn 3.375 GM IVPB Q 8 HRS (03/19) Rocephin 2GM IVPB Q 24 HRS (03/20-03/27) Zithromax 500 MG PO Daily (03/19-03/21) Blood Culture No Growth after 144 hours Please clarify sepsis: [ ] Yes, Sepsis ruled in, POA is present as evidence by (additional clinical support): [ ] No, Sepsis is ruled out [ ] Other (please specify diagnosis) [ ] Unable to determine (Template Last Revised: April 2020) no sepsis MTDD
--- NOTE | 2021-03-30 00:40 | P.DS ---
Providers Date of admission: 03/19/21 18:04 Attending physician: Mono Brasher MD Consults: 03/20/21 15:14 Consult Physician Routine Consulting Provider: Robbin Fournier Consult Reason/Comments: AC hypoxic/hypercapnic resp failure Do you want consulting provider notified?: Yes 03/23/21 15:20 Consult Physician Stat Consulting Provider: Herb Gagnon Consult Reason/Comments: altered mental status, code stroke Do you want consulting provider notified?: Already Contacted 03/24/21 12:07 Consult Physician Routine Consulting Provider: Alex Adams Consult Reason/Comments: lung cancer Do you want consulting provider notified?: Yes Primary care physician: Ehsan Segura Hospital Course: Diagnoses: Acute hypercapnic and hypoxic respiratory failure secondary to large right pleural effusion probably malignant effusion possibility of CHF exacerbation is low and possibility of pneumonia is low. Patient had thoracentesis with removal of 2 L of pleural fluid which is exudative in nature but negative for malignant cells. Right lower lobe pneumonia, -Right hilar mass will be malignancy unless otherwise proven. Oncology was consulted. Altered mental status component of toxic/metabolic encephalopathy secondary to above CO2 retention for which patient is presently on BiPAP and patient is presently alert oriented 3 patient underwent workup for stroke so far negative. Severe aortic stenosis, moderate mitral stenosis Acute on chronic congestive heart failure, diastolic dysfunction, EF 50-55% which is decreased from 55-60% from Dec Atrial Fibrillation with RVR, on eliquis, at home, presently on metoprolol and Lovenox probably can be switched back to Eliquis. COPD, not in acute exacerbation patient with no wheezing noted on exam, no cough present, 3L home O2 currently on BiPAP Hypertension hyperlipidemia Anxiety/Depression Obesity Hospital course: 80-year-old female her evaluation for altered mental status weakness found by family to be less responsive than usual. She had total bottles scattered about throat her house. Reports of any trauma or any fevers chills or sweats however she paranasal been eating and drinking as much as usual. Not as responsive as usual. Noted have tremors about the chest and hands today. 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 Labs are pending from today. Echocardiogram shows an EF of 50-55% with severe aortic stenosis, moderate mitral stenosis, mild tricuspid regurgitation. Previous echo from December 2020 shows an EF of 55-60%. Patient underwent chest ultrasound today which shows a large right pleural effusion. Pulmonary consulted. Procalcitonin 0.09, CRP 5.7. Patient continues on IV Rocephin, by mouth Zithromax, PO Lasix BID. 03/22/2021 Patient debilitated the bedside, she is on BiPAP 50% with a saturation of 90%, blood pressure stable 152/82 respirations 22, heart rate 86, afebrile. She has some anxiety last night about her pending thoracentesis today. Patient is denying any chest pain or chest pressure today she reports no shortness of breath on BiPAP. Cardiology has cleared patient today to follow up with Dr. Singh outpatient. Labs today hemoglobin stable 10.7, sodium 138, potassium 4.3, chloride 93, CO2 40, BUN 30, creatinine 0.69, blood sugar 106, mag 1.8. 03/22/2021 Patient is a pleasant 80-year-old female admitted for acute hypoxic respiratory failure found to have right-sided pleural effusion patient underwent pleural tap about 2 L of serosanguineous fluid was removed. Patient's respiratory status again improved after a drainage of the pleural fluid. Patient the pleural effusion appears to be exudative. Probably malignant pleural effusion patient had a CT of the chest which is concerned needing for hilar mass. Patient respiratory status as per the patient is bit worse compared to yesterday after the pleural tap because of which I obtain an x-ray still showing some moderate pleural effusion. 03/24/2021 Patient had a respiratory decompensation yesterday patient had altered mental status code stroke was called although patient is found to have highly elevated pCO2 of 102 patient was started on BiPAP. Since code stroke was called neurology was consulted and the ordered a carotid Doppler showed some abnormality in the flow in vertebral artery. CT of the head did not show any acute stroke. It was recommended that by neurology to be resumed on anticoagulation this anti-correlation is being held for possible biopsy of the right lung mass. Considering respiratory decompensation biopsy probably will not be done during this hospitalization. Patient probably will be started on Eliquis for that reason. When I evaluated the patient patient wanted to be discharged and doesn't want to continue any further treatment and just wanted to go home and . I had a lengthy discussion with the daughter regarding options of the treatment I also discussed with oncology regarding its treatment options. Even though patient cannot get the a bronchoscopy biopsy rate of a liquid biopsy can be done looking for adenocarcinoma and EGFR genes, if they are positive patient can receive biologic therapy with lesser side effects than chemotherapy which probably patient can tolerate it because of this reason up in a consulted oncology in the hospice and palliative care will evaluate the patient as well. Patient remains on BiPAP. Quite anxious for which patient is on Xanax does frequency of which will be increased and also on Haldol considering her age to much show benzo diazepines can lead to confusion and agitation. Subjective: 03/25/2021 Patient admitted with diastolic CHF and currently on oral Lasix and also she has right side pleural effusion but thoracocentesis failed to show any malignancy on cytology exam however malignancy still highly suspected given her right hilar mass of 2.5 cm but patient is poor candidate for bronchoscopy given her compromised lung function therefore given her other multiple medical problems for example including but not limited to severe aortic stenosis, moderate mitral stenosis, atrial fibrillation hypoxia and others then hospice is need to be considered. pulmonary team discussed problems and prognosis with the patient and her daughter and eventually decided to proceed with hospice care, patient has been evaluated by hospice staff and she got accepted to be discharged home with hospice care. Attempt to the patient and she is agreeable with this plan patient understands her bed prognosis as it discussed with her as well She is currently awake and alert looks very tired mildly tachypneic at rest but she got more dyspneic as she talks or trying to do some exertion. Her oxygen requirements is between 3 L/m after connecting several times over the day with BiPAP machine. Patient posted for discharge by all consultants Problems and management plan were discussed with the patient and he verbalized understanding and acceptance Patient was found stable and can be discharged home however he needs follow-up as an outpatient. Patient was instructed to follow up with PCP within one week and patient agrees Physical exam -Gen: patient is a AAOx3, no distress. Very tired and weak CVS: S1-S2, RRR, no murmur -Lungs: B/L CTA, no wheezing. Tachypnea, on 3 L nasal cannula. Scattered crepitation Abdomen: soft, no distention, no tenderness, positive bowel sounds Extremity: no leg edema or induration Time spent more than 35 minutes Patient Condition at Discharge: Fair Plan - Discharge Summary Discharge Rx Participant: No New Discharge Prescriptions: New Metoprolol Tartrate [Lopressor] 25 mg PO BID #60 tab Pantoprazole [Protonix] 40 mg PO AC-BRKFST #30 tab Lidocaine 5% Patch [Lidoderm 5% Patch] 1 patch TOPICAL DAILY #7 patch Melatonin 3 mg PO HS PRN #30 tablet PRN Reason: Insomnia lisinopriL [Zestril] 10 mg PO DAILY #30 tab Continue PARoxetine HCL 30 mg PO DAILY ALPRAZolam [Xanax] 0.25 mg PO DAILY PRN #3 tab PRN Reason: Anxiety Tolterodine Tartrate [Detrol LA] 4 mg PO DAILY Apixaban [Eliquis] 5 mg PO BID tab Furosemide [Lasix] 20 mg PO BID #60 tab Atorvastatin [Lipitor] 10 mg PO DAILY Verapamil HCl [Verapamil ER] 120 mg PO DAILY Discontinued Aspirin EC [Ecotrin Low Dose] 81 mg PO DAILY Multivitamins, Thera [Multivitamin (formulary)] 1 tab PO DAILY lisinopriL 30 mg PO DAILY Discharge Medication List PARoxetine HCL 30 mg PO DAILY 01/19/17 [History] Tolterodine Tartrate [Detrol LA] 4 mg PO DAILY 01/21/21 [History] ALPRAZolam [Xanax] 0.25 mg PO DAILY PRN #3 tab 01/26/21 [Rx] Apixaban [Eliquis] 5 mg PO BID tab 01/26/21 [Rx] Furosemide [Lasix] 20 mg PO BID #60 tab 01/26/21 [Rx] Atorvastatin [Lipitor] 10 mg PO DAILY 03/19/21 [History] Verapamil HCl [Verapamil ER] 120 mg PO DAILY 03/19/21 [History] Lidocaine 5% Patch [Lidoderm 5% Patch] 1 patch TOPICAL DAILY #7 patch 03/29/21 [Rx] Melatonin 3 mg PO HS PRN #30 tablet 03/29/21 [Rx] Metoprolol Tartrate [Lopressor] 25 mg PO BID #60 tab 03/29/21 [Rx] Pantoprazole [Protonix] 40 mg PO AC-BRKFST #30 tab 03/29/21 [Rx] lisinopriL [Zestril] 10 mg PO DAILY #30 tab 03/29/21 [Rx] Follow up Appointment(s)/Referral(s): Ehsan Segura MD [Primary Care Provider] - 1-2 days David Singh MD [STAFF PHYSICIAN] - 1 Week Robbin Fournier DO [Doctor of Osteopathic Medicine] - 1 Week Activity/Diet/Wound Care/Special Instructions: regular diet activity as tolerated Discharge Disposition: HOME WITH HOSPICE
== END 2021-03-29 16:45 | disposition hospice, home (50) | DRG 180 ==
LOC: EC 13:32 → 3SCARD 18:04
PROVIDERS: ADMIT Internal Medicine; ATTEND Internal Medicine
PROC: 0W993ZZ Drainage of Right Pleural Cavity, Percutaneous Approach (ICD-10-PCS; principal; 2021-03-22)
PROC: 5A0935A Assistance with Respiratory Ventilation, Less than 24 Consecutive Hours, High Flow/Velocity Cannula (ICD-10-PCS; 2021-03-22)
PROC: 5A09557 Assistance with Respiratory Ventilation, Greater than 96 Consecutive Hours, Continuous Positive Airway Pressure (ICD-10-PCS; 2021-03-23)
DX: C34.90 Malignant neoplasm of unspecified part of unspecified bronchus or lung (principal); J18.9 Pneumonia, unspecified organism; G92.8 Other toxic encephalopathy; I50.33 Acute on chronic diastolic (congestive) heart failure; J96.21 Acute and chronic respiratory failure with hypoxia; J96.22 Acute and chronic respiratory failure with hypercapnia; I48.19 Other persistent atrial fibrillation; J44.0 Chronic obstructive pulmonary disease with (acute) lower respiratory infection; J91.0 Malignant pleural effusion; J98.19 Other pulmonary collapse; E66.9 Obesity, unspecified; Z68.32 Body mass index [BMI] 32.0-32.9, adult; E78.5 Hyperlipidemia, unspecified; E86.0 Dehydration; F32.A Depression, unspecified; F41.9 Anxiety disorder, unspecified; G25.3 Myoclonus; I08.0 Rheumatic disorders of both mitral and aortic valves; I25.10 Atherosclerotic heart disease of native coronary artery without angina pectoris; I11.0 Hypertensive heart disease with heart failure; I25.2 Old myocardial infarction; R29.700 NIHSS score 0; R29.703 NIHSS score 3; Z20.822 Contact with and (suspected) exposure to COVID-19; Z66 Do not resuscitate; Z51.5 Encounter for palliative care; Z79.01 Long term (current) use of anticoagulants; Z79.82 Long term (current) use of aspirin; Z79.899 Other long term (current) drug therapy; Z87.891 Personal history of nicotine dependence; Z90.710 Acquired absence of both cervix and uterus; Z99.81 Dependence on supplemental oxygen
CPT/HCPCS: 36410; 36415; 36600; 70450; 71045; 71046; 71260; 76604; 76937; 80048; 80053; 80143; 80306; 81003; 82140; 82803; 82805; 82945; 83615; 83735; 83880; 84145; 84157; 84484; 85025; 85610; 85730; 86140; 87040; 87070; 87075; 87102; 87116; 87205; 87206; 87252; 87496; 87498; 87502; 87529; 87634; 87635; 87798; 88108; 88305; 89050; 93005; 93306; 93880; 94660; 94760; 96361; 96374; 99285